=== PATIENT | female | born 1960 | race Caucasian/White ===

== ENCOUNTER 2016-03-09 05:52 | Emergency (ER) | payer BC ==
[2016-03-09 06:07] VITALS: BP 159/92
[2016-03-09] MEDS ORDERED: HYDROcodone/ACETAMIN 5-325 MG* 1 TAB PO ONE (07:11)
--- NOTE | 2016-03-09 07:21 | ED ---
Upper Extremity Pain - HPI Summary HPI Summary: Rt hand dominant pt here w/ fall last night resulting in Rt hand pain and swelling. Pain radiates up arm into neck. Pain is worse w/ movement of fingers and wrist - moving elbow and shoulder well. Thinks she probably hit her head but denies LOC, pain, change in vision, N/V, neck pain, tinnitus, photophobia, phonophobia and no blood thinning medications. Tried ice and a "PM" medication before bed but pain kept her awake so came in to be assessed. Denies numbness, tingling, weakness. - History of Current Complaint Chief Complaint: EDExtremityUpper Stated Complaint: RIGHT HAND PAIN Time Seen by Provider: 03/09/16 07:04 Hx Obtained From: Patient - Allergies/Home Medications Allergies/Adverse Reactions: Allergies Allergy/AdvReac Type Severity Reaction Status Date / Time Niacin [From Niaspan] Allergy Mild UNKNOWN RXN Verified 10/17/15 08:01 Adhesive Tape Allergy Blisters Verified 01/15/16 11:50 a blood pressure medicine Allergy Mild Rash Uncoded 10/17/15 08:01 PMH/Surg Hx/FS Hx/Imm Hx Previously Healthy: Yes Endocrine/Hematology History: Reports: Hx Diabetes, Hx Thyroid Disease - NO THYROID; ENLARGED/GOITER Denies: Hx Systemic Lupus Erythematosus Cardiovascular History: Reports: Hx Congestive Heart Failure, Hx Hypertension Denies: Hx Pacemaker/ICD Respiratory History: Reports: Hx Sleep Apnea, Other Respiratory Problems/ Disorders - CHRONIC PNEUMONIA Denies: Hx Asthma, Hx Chronic Obstructive Pulmonary Disease (COPD) GI History: Reports: Hx Crohn's Disease, Other GI Disorders - Colostomy Denies: Hx Ulcer History: Denies: Hx Dialysis, Hx Renal Disease Musculoskeletal History: Reports: Hx Arthritis - osteoarthritis, Hx Osteoporosis Denies: Hx Rheumatoid Arthritis Sensory History: Reports: Hx Contacts or Glasses Denies: Hx Hearing Aid Opthamlomology History: Reports: Hx Contacts or Glasses Psychiatric History: Reports: Hx Depression, Hx Community Mental Health Tx, Hx Suicide Attempt, Hx of Violent Episodes Against Others Denies: Hx Eating Disorder, Hx Panic Disorder - Cancer History Hx Chemotherapy: No Hx Radiation Therapy: No - Surgical History Surgery Procedure, Year, and Place: 3 - HERNIA. T & A AND PILLARS REMOVED. 2 C SECTIONS. 2 PARTIALS - THYROIDECTOMY. BREAST REDUCTION. COLOSTOMY BAG - JULY 2013. HYSTERECTOMY. Lt ARM -FX - Immunization History Date of Tetanus Vaccine: Up to date Date of Influenza Vaccine: Fall 2013 Infectious Disease History: No Infectious Disease History: Reports: Hx of Known/Suspected MRSA Denies: Hx Hepatitis, Hx Human Immunodeficiency Virus (HIV), Traveled Outside the [place] in Last 30 Days - Family History Known Family History: Positive: None, Cardiac Disease, Hypertension, Diabetes - Social History Occupation: Unemployed Lives: With Family Alcohol Use: Rare Hx Substance Use: No Substance Use Type: Reports: None Hx Tobacco Use: No Smoking Status (MU): Never Smoked Tobacco Review of Systems Eyes: Negative ENT: Negative Cardiovascular: Negative Respiratory: Negative Gastrointestinal: Negative Positive: no symptoms reported Musculoskeletal: Other - see HPI Skin: Negative Neurological: Negative Psychological: Normal All Other Systems Reviewed And Are Negative: Yes Physical Exam Triage Information Reviewed: Yes Vital Signs On Initial Exam: Initial Vitals Temp Pulse Resp BP Pulse Ox 96.6 F 72 16 159/92 95 03/09/16 06:00 03/09/16 06:00 03/09/16 06:00 03/09/16 06:00 03/09/16 06:00 Vital Signs Reviewed: Yes Appearance: Positive: Well-Appearing, Pain Distress, Obese Skin: Positive: Warm, Dry - no erythema, early signs of ecchymosis over Rt thenar eminance (palmar aspect) Head/Face: Positive: Normal Head/Face Inspection - NTTP, no gross deformity Eyes: Positive: Normal, EOMI, Conjunctiva Clear ENT: Positive: Hearing grossly normal, Pharynx normal, TMs normal - no hemotympanum Dental: Negative: Dental Fracture @ Neck: Positive: Supple, Nontender Respiratory/Lung Sounds: Positive: Clear to Auscultation - equal chest rise w/o pain, Breath Sounds Present. Negative: Rales, Rhonchi, Subcutaneous Emphysema, Stridor, Tracheal Deviation, Wheezes Cardiovascular: Positive: Normal, RRR, Pulses are Symmetrical in both Upper and Lower Extremities, S1, S2 Musculoskeletal: Positive: Pain @ - RT MC's and carpals are TTP - thenar eminance and hand in general edematous compared to Lt; limted ROM fingers and wrist d/t pain; FROM elbow and shoulder w/o pain and NTTP; phalanges 2-5 NTTP Neurological: Positive: Normal, Sensory/Motor Intact, Alert, Oriented to Person Place, Time, CN Intact II-III Psychiatric: Positive: Normal - concerned Diagnostics - Vital Signs Vital Signs Temp Pulse Resp BP Pulse Ox 03/09/16 06:00 96.6 F 72 16 159/92 95 - Laboratory Lab Statement: Any lab studies that have been ordered have been reviewed, and results considered in the medical decision making process. Course/Dx - Diagnoses Provider Diagnoses: Sprain of hand, right Discharge - Discharge Plan Condition: Stable Disposition: HOME Prescriptions: HYDROcodone/ACETAMIN 5-325 MG* [[place] 5-325 TAB*] 1 tab PO Q6H PRN #20 tab MDD 4 PRN Reason: Pain Patient Education Materials: Hand Sprain (ED), Splint Care (ED) Referrals: Josué Viera MD [Primary Care Provider] - Katelyn Oconnor MD [Medical Doctor] - Additional Instructions: Keep splint in place until follow-up with PCP/ortho. Call today to schedule an appointment.
--- NOTE | 2016-03-09 07:55 | RAD ---
HISTORY: Fall, right hand pain COMPARISONS: None VIEWS: 4, Frontal, lateral, and oblique views the right hand FINDINGS: BONE DENSITY: Normal. BONES: There is no displaced fracture. JOINTS: There is advanced osteoarthritis of the first CMC joint. There is osteoarthritis of interphalangeal joints. ALIGNMENT: There is no dislocation. SOFT TISSUES: Unremarkable. OTHER FINDINGS: None. IMPRESSION: OSTEOARTHRITIS. NO ACUTE OSSEOUS INJURY. IF SYMPTOMS PERSIST, RECOMMEND REPEAT IMAGING.
== END 2016-03-09 09:00 | disposition home or self-care (01) ==
LOC: ED 05:52
DX: S63.91XA Sprain of unspecified part of right wrist and hand, initial encounter (principal); M79.641 Pain in right hand; X58.XXXA Exposure to other specified factors, initial encounter; Y93.9 Activity, unspecified; Y92.9 Unspecified place or not applicable
CPT/HCPCS: 99282

== ENCOUNTER → 2016-04-23 07:16 | Day surgery (SDC) | payer BC ==
--- NOTE | 2016-04-09 12:30 | HP ---
PREOPERATIVE HISTORY AND PHYSICAL: DATE OF OFFICE VISIT/ENCOUNTER: 04/08/16 DATE OF SURGERY: 04/23/16 [facility] ATTENDING SURGEON: Nancy Aburto MD PROCEDURE: Right thumb carpometacarpal arthroplasty. CHIEF COMPLAINT: Right thumb pain. HISTORY OF PRESENT ILLNESS: This is a 55-year-old woman with various health issues including diabetes, obesity, Crohn disease, and questionable multiple sclerosis, who is having pain in her right thumb. She initially developed pain after an injury on 03/08/16 when she slipped in the bathroom and hit her thumb on the sink. X-rays were negative for fracture, but revealed significant arthritis at the base of her thumb. She had failed conservative treatment including bracing and a cortisone injection. She would like to proceed with surgery at this point in the form of a right thumb carpometacarpal arthroplasty. Her primary care physician is Dr. Viera and we will get clearance from him prior to proceeding with surgery. PAST MEDICAL HISTORY: 1. Diabetes. 2. Hypothyroidism. 3. Hypertension. 4. Obesity. 5. Osteoarthritis. 6. Migraine headaches. 7. Restless leg syndrome. 8. Optic neuritis. 9. Crohn disease/ulcerative colitis. 10. Panic attacks, anxiety, depression. 11. GERD. 12. Questionable multiple sclerosis, for which she is being followed by a neurologist. PAST SURGICAL HISTORY: 1. Hysterectomy. 2. Thyroidectomy. 3. Breast reduction. 4. Colostomy. 5. x2. 6. Hernia repair x3. 7. Tonsillectomy. 8. Tubes in her ears. CURRENT MEDICATIONS: 1. Carbidopa/levodopa 25/250 mg daily. 2. Clonazepam 1 mg one q.a.m., half at noon, and one at bedtime. 3. Fluoxetine HCl 40 mg 1 b.i.d. 4. Gabapentin 400 mg daily. 5. Glipizide 5 mg 1 tab b.i.d. 6. Levothyroxine sodium 200 mcg 1 daily. 7. Lisinopril 20 mg 1 daily. 8. Metformin HCl 500 mg 1 tab b.i.d. 9. Sulfasalazine 500 mg 4 tabs daily. 10. Trazodone HCl 100 mg daily. ALLERGIES: NIASPAN causes hives, and TAPES. FAMILY MEDICAL HISTORY: Brain tumor on paternal side. SOCIAL HISTORY: The patient is not currently employed. She reports being a former smoker. She quit in 2007. Prior to that, she was smoking up to 2 packs per day for 10 years. She denies recreational drug use and alcohol use. REVIEW OF SYSTEMS: General: Negative for fevers, chills, or night sweats. No known anesthesia problems. HEENT: Negative for headache, lightheadedness, or syncopal episodes. Integumentary: Negative for abrasions, lesions, or open wounds. Cardiothoracic: Positive for hypertension. Pulmonary: Positive for shortness of breath with exertion. Negative for chronic cough or COPD. GI: Positive for diarrhea, GERD, Crohn disease, and ulcerative colitis. : Negative for nocturia, urinary frequency, urgency, history of UTIs, or kidney problems. Musculoskeletal: Positive for current complaint and osteoarthritis. Neurological: Negative for paresthesias, numbness, history of seizure, stroke, or epilepsy. Endocrine: Positive for diabetes and hypothyroidism. Hematologic : Negative for easy bruising, anemia, excessive bleeding, or history of DVT. Infectious Disease: Positive for history of MRSA in 2013. Negative for hepatitis C or HIV. PHYSICAL EXAMINATION GENERAL: A well-developed, well-nourished 55-year-old female, in no acute distress. VITAL SIGNS: Height 5 feet 8 inches, weight 293 pounds, pulse rate 88, and blood pressure 134/100. HEENT: Normocephalic, atraumatic. Pupils are equal, round, and reactive to light and accommodation. Extraocular movements are intact. NECK: Supple. No palpable lymph nodes. Throat is clear. PULMONARY: Lungs are clear to auscultation bilaterally. No wheezes, rales, or rhonchi. CARDIOTHORACIC: Regular rate and rhythm. S1, S2. No murmurs, rubs, or gallops. No edema. ABDOMEN: Positive bowel sounds, soft, and nontender. MUSCULOSKELETAL: On exam of her right hand, she has swelling around the base of the thumb. Tenderness to palpation at the CMC joint. Painful range of motion of the thumb. Skin is intact and neurovascular function is intact. She has slight decrease in range of motion of her right thumb and decreased strength secondary to pain. NEUROLOGICAL: Alert and oriented x3. Cranial nerves II through XII are intact. Sensation is intact to light touch. DIAGNOSTIC/IMAGING STUDIES: X-rays of the right thumb show [id number] degenerative arthritis of the CMC joint. IMPRESSION: Right thumb CMC arthritis. PLAN/RECOMMENDATIONS: The patient is scheduled to undergo a right thumb carpometacarpal arthroplasty with Dr. Aburto on 04/23/16. She will will return to the office in 10 to 14 days postop for followup and suture removal. A prescription for Hudson was e-scribed to the patient's pharmacy for postoperative pain management. The patient will receive clearance from her primary care physician, Dr. Viera, prior to proceeding with surgery. JOEL RENEE [id number]/[facility] #: [id number] PHIL
--- NOTE | 2016-04-12 15:52 | HP ---
HISTORY AND PHYSICAL: DATE OF ADMISSION: 04/23/16 [facility] CHIEF COMPLAINT: Right thumb pain. HISTORY OF PRESENT ILLNESS: This 55-year-old white female has been diagnosed with osteoarthritis of her right thumb. She is scheduled with Dr. Nancy Aburto at [facility] on 04/23/16 for a right thumb carpometacarpal arthroscopy. PAST MEDICAL HISTORY: The patient is under the care of Dr. Josué Viera. She has a history of: 1. Morbid obesity. 2. Nge-zkffaza-dmrqsvwdm diabetes mellitus. 3. Hypertension. 4. Hypothyroidism after a total thyroidectomy. 5. Crohn's. 6. Ulcerative colitis. 7. Sleep apnea, uses CPAP. 8. GE reflux. 9. History of right eye optic neuritis. 10. Restless leg syndrome. 11. Chronic anxiety and depression. PAST SURGICAL HISTORY: Includes: 1. T and A. 2. Ear tubes. 3. Tubal ligation. 4. Hysterectomy. 5. Bilateral breast reduction. 6. Total thyroidectomy. 7. Right hemicolectomy with complications of postop wound dehiscence. 8. Five hernia repairs. CURRENT MEDICATIONS: 1. Glipizide 5 mg b.i.d. 2. Metformin 500 mg b.i.d. 3. Sinemet 25/250 q.h.s. 4. Sulfasalazine 500 mg 4 times a day. 5. Levothyroxine 200 mg daily. 6. Lisinopril 20 mg daily. 7. Fluoxetine 40 mg 1 tablet b.i.d. 8. Klonopin 1 mg b.i.d. and half a tablet daily. 9. Tramadol 50 mg b.i.d. 10. Trazodone 100 mg q.h.s. ALLERGIES: NIASPAN has caused rash and hives. GABAPENTIN, facial swelling, dizziness, and syncope. TOPIRAMATE, dizziness and syncope. FAMILY HISTORY: Mother: Atrial fibrillation, pacemaker. Father: Rheumatoid arthritis. Sister: Renal cancer. SOCIAL HISTORY: The patient is . Lives in the [place] area. She has 3 grown children. She quit smoking cigarettes in 2007. Prior to that, 1 to 2 pack a day history for 10 years. Alcohol: None at the present time. REVIEW OF SYSTEMS: She does wear bifocal glasses. She is constipated at the present time and is having some gas cramping. She has a colostomy bag, but still has some rectal bleeding from time to time from her Crohn's ulcerative colitis. Back: Chronic neck and low back pain complaints. She has a history of migraines. Otherwise, review of systems is negative to detailed questioning. She specifically denies dyspnea, cough, chest pain, palpitations, or edema symptoms. PHYSICAL EXAMINATION GENERAL: This 55-year-old morbidly obese white female is alert and cooperative. VITAL SIGNS: Height 5 feet 7 inches, weight 294 pounds. Blood pressure using the large cuff 136/84, pulse 88. HEENT: Eyes: Pupils round, react to light. Ears: Both TMs are dull. No light reflex. No erythema. Mouth: Tongue in the midline. Teeth in very good repair. Pharynx is clear. NECK: No adenopathy or tenderness. Fair range of motion of the cervical spine. She has a slightly widened scar at the base of her anterior neck from previous thyroid surgery, well healed. BACK: Mild kyphosis. She has some tenderness to palpation in the lower lumbar region. No tenderness over the CVA areas. LUNGS: Clear. SKIN: She has multiple pigmented lesions of her upper posterior back, none appear worrisome. HEART: Rhythm is regular. Apical pulse 88 beats per minute. No murmurs. EKG : Normal sinus rhythm within normal limits. See EKG for details. ABDOMEN: Massive central obesity. She has a functioning colostomy with soft brown stool in her ostomy bag and her left mid abdomen. Active bowel sounds. Abdomen is soft, nontender. No obvious masses or organomegaly; however, this exam is quite difficult related to the patient's massive obesity. EXTREMITIES: The patient ambulates independently. No assisting aids. No edema. Skin in good condition. IMPRESSION: The patient is found to be medically stable and cleared for her surgery with Dr. Nancy Aburto on 04/23/16 for right thumb carpometacarpal arthroscopy procedure. PLAN: The patient has pending labs, CBC, P-33, lipids, A1c, and a TSH level. RENETTA ZAMAN NP CC: Josué Viera MD; Dr. Aburto; Preadmission Testing Unit * [id number]/[facility] #: [id number] PHIL
[~2016-04-23 07:16] MED LIST: Acetaminophen TAB* 325 MG PO PRN; Buffered Lidocaine 1% SYRIN* 3 ML/SYR SYRINGE INTRADERM ONE; Bupivacaine 0.5% SDV PF* 30 ML VIAL ONE; Dexamethasone IV* 4 MG/ML 1 ML (4 MG) ONE; DiMENhydriNATE IV* 50 MG/ML VIAL IV PUSH PRN; Famotidine IV* 10 MG/ML 2 ML (20 mg) ONE; HYDROcodone/ACETAMIN 5-325 MG* 1 TAB ONE; HYDROcodone/ACETAMIN 5-325 MG* 1 TAB PO PRN; Ketorolac INJ* 30 MG/ML 1 ML VIAL ONE; Labetalol IV* 5 MG/ML 20 ML VIAL ONE; Lidocaine 2% PF* 5 ML VIAL ONE; Midazolam* 1 MG/ML 2 ML VIAL (2 MG) ONE; Ondansetron INJ* 2 MG/ML VIAL IV PRN; PROCHLORPERAZINE INJ 5 MG/ML 2 ML VIAL IV PRN; Propofol* 10 MG/ML 20 ML BTL IV PUSH ONE; ceFAZolin 1 GM in Dextrose (*) 1 GM/50 ML BAG IVPB ONE; ceFAZolin 2 GM PREMIX(*) 2 GM/50 ML BAG IVPB ONE; fentaNYL* 50 MCG/ML 2 ML VIAL (100 MCG VIAL) ONE
[2016-04-23 11:04] VITALS: BP 141/91
--- NOTE | 2016-04-24 01:33 | OP ---
DATE OF OPERATION: 04/23/16 - [facility] DATE OF : 64 SURGEON: Dr. Aburto. MEETING PLANNER: JOEL Ng ANESTHESIOLOGIST: Dr. Vance ANESTHESIA: General. PRE-OP DIAGNOSIS: Right thumb carpometacarpal arthritis. POST-OP DIAGNOSIS: Right thumb carpometacarpal arthritis. OPERATIVE PROCEDURE: Right thumb carpometacarpal arthroplasty. ESTIMATED BLOOD LOSS: Zero. TOURNIQUET TIME: About 40 minutes. INDICATION FOR PROCEDURE: Kimberly is a 55-year-old woman with pain in her right thumb. X-rays showed severe degenerative arthritis of the CMC joint. She has failed conservative treatment, presents for right thumb CMC arthroplasty. DESCRIPTION OF PROCEDURE: The patient was brought to the operating room, was given a general anesthetic and placed in the supine position on the operating table with a tourniquet around her right forearm. The skin of her right hand and forearm was prepped and draped in the usual sterile fashion. The hand and forearm were exsanguinated and the tourniquet elevated to 250 mmHg. An S- shaped incision was made centered at the CMC joint of the right thumb, dissected bluntly through the subcutaneous tissue. Branches of the radial and sensory nerve were retracted. The APL and EPB tendons were retracted away from the CMC joint capsule and then a distally based U-shaped flap was created at the CMC joint capsule. This was subperiosteally dissected off of the trapezium and then the trapezium was removed in its entirety and sent for pathology. The FCR tendon was in good condition in the floor of the wound. The wound was irrigated and the CMC joint capsule was secured through the FCR tendon with a 4- 0 nylon suture bringing the thumb metacarpal out into abduction. A capsule was then closed with 4-0 nylon suture and the skin edges were reapproximated with 4- 0 nylon suture. The wound was dressed with Xeroform, 4x4, Webril, and a thumb spica splint with the metacarpal abducted. The patient tolerated the procedure well, was brought to the recovery room in good condition. [id number]/[facility] #: [id number] [facility]
== END | disposition home or self-care (01) ==
LOC: OR 07:16
PROVIDERS: ATTEND Orthopaedic Surgery
DX: M18.11 Unilateral primary osteoarthritis of first carpometacarpal joint, right hand (principal); E11.8 Type 2 diabetes mellitus with unspecified complications; Z79.84 Long term (current) use of oral hypoglycemic drugs; Z87.891 Personal history of nicotine dependence; E03.9 Hypothyroidism, unspecified; I10 Essential (primary) hypertension; K50.90 Crohn's disease, unspecified, without complications; Z68.41 Body mass index [BMI] 40.0-44.9, adult; G47.33 Obstructive sleep apnea (adult) (pediatric)
CPT/HCPCS: J0690; J1100; J1885; J2250; J2704; J3010

== ENCOUNTER 2017-03-14 15:34 | Emergency (ER) | payer BC ==
[2017-03-14 18:20] LABS: ABS Basophils 0.1 10^3/ul (0-0.2); ABS Eosinophils 0.2 10^3/ul (0-0.6); ABS Monocytes 0.6 10^3/ul (0-0.8); ABS Neutrophils 6.1 10^3/ul (1.5-7.7); ABS Nucleated RBC 0 10^3/ul; Hematocrit 38 % (35-47); Hemoglobin 12.9 g/dl (12.0-16.0); Lymphocyte % 30.3 % (25-47); Mean Corpuscular HGB Conc 34 g/dl (31-36); Mean Corpuscular Hemoglobin 31 pg (27-31); Mean Corpuscular Volume 92 fL (80-97); Mean Platelet Volume 7 um3 (7.4-10.4); Nucleated Red Blood Cells % 0; Platelet Count 280 10^3/ul (150-450); Red Blood Count 4.09 10^6/ul (4.0-5.4); Red Cell Distribution Width 14 % (10.5-15)
[2017-03-14 18:29] LABS: INR 1.07 (0.77-1.02)
[2017-03-14] MEDS ORDERED: Morphine INJ* 4 MG/ML 1 ML CARPUJECT IV ONE ×2 (18:33→22:00)
[2017-03-14] MEDS ORDERED: NS 0.9% 1000 ML* 1,000 ML IV ONE (18:33)
[2017-03-14] MEDS ORDERED: Ondansetron INJ* 2 MG/ML VIAL IV ONE (18:33)
[2017-03-14 18:35] LABS: EGFR Non-African American 88.7 (>60)
[2017-03-14] MEDS ORDERED: Iodixanol* (CONTRAST) 320 MG/ML 100 ML SDV IV ONE (18:50)
--- NOTE | 2017-03-14 20:13 | RAD ---
CLINICAL HISTORY: Pain and drainage around ostomy site COMPARISON: December 26, 2014 TECHNIQUE: Multiple contiguous axial CT scans were obtained of the abdomen and pelvis after the administration of intravenous contrast. Coronal and sagittal multiplanar reformations are submitted for review. Oral contrast was not administered. Delayed images were obtained through the abdomen and pelvis. FINDINGS: LUNG BASES: The lung bases are clear. LIVER: The liver is diffusely low in attenuation compared to the spleen. The liver measures 20 cm in long axis.. BILE DUCTS: There is no intrahepatic or extrahepatic biliary dilatation. GALLBLADDER: The gallbladder is normal, without pericholecystic inflammatory change. PANCREAS: The pancreas is normal, without mass or ductal dilatation. SPLEEN: Normal in size and appearance. UPPER GI TRACT: Evaluation of the gastrointestinal tract is limited by incomplete gastric distention. The upper GI tract is unremarkable. SMALL BOWEL AND MESENTERY: The small bowel is normal in contour, course, and caliber. There is no obstruction or dilatation. COLON: A colostomy is noted.. ADRENALS: Normal bilaterally. KIDNEYS: The kidneys are normal in shape, size, contour, and axis. There is no hydronephrosis or nephrolithiasis. BLADDER: The bladder is smooth in contour. PELVIC ORGANS: The pelvic organs are not visualized. AORTA: There is calcific atherosclerotic disease of the abdominal aorta and its branches, without aneurysmal dilatation IVC: Unremarkable LYMPH NODES: There is no lymphadenopathy by size criteria. ABDOMINAL WALL: There is a large ventral hernia containing portion of transverse colon. There is a parastomal hernia containing fat. A hernia mesh is noted. BONES AND SOFT TISSUES: Degenerative changes are noted of the spine. OTHER: None IMPRESSION: 1. THE COLOSTOMY IS NOTED. THERE IS NO APPRECIABLE LOCULATED FLUID COLLECTION AT THE SITE OF COLOSTOMY TO SUGGEST ABSCESS. 2. THERE IS A PARASTOMAL HERNIA CONTAINING FAT. THERE IS A VENTRAL HERNIA CONTAINING TRANSVERSE COLON. 3. FATTY INFILTRATION OF LIVER. 4. ATHEROSCLEROSIS
[2017-03-14] MEDS ORDERED: oxyCODONE/Acetamin 5/325 MG* TAB PO ONE (22:04)
--- NOTE | 2017-03-14 22:17 | ED ---
Alex Jenkins Jennifer, scribed for Danny Caballero MD on 03/14/17 at 1836 . Abdominal Pain/Female - HPI Summary HPI Summary: The patient is a 56 year old female who presents with intense abdominal pain that began one month ago. There is redness on the abdomen with raised bumps that pus and bleeds. This began 3.5 years ago due to her Crohns disease. She adds that she has hernias on the right abdominal side and the left side is higher than normal. The patient has an ostomy on her right abdomen that has never healed. The patient additionally complains of bleeding out of her rectum when she uses the restroom that has always happened but has recently gotten much worse. - History of Current Complaint Chief Complaint: Rubén Stated Complaint: PROBLEMS WITH HER STOMA Time Seen by Provider: 03/14/17 18:23 Hx Obtained From: Patient Onset/Duration: Lasting Weeks - one month, Still Present, Worse Since Timing: Constant Severity Initially: Severe Severity Currently: Severe Pain Intensity: 10 Pain Scale Used: 0-10 Numeric Location: Diffuse Aggravating Factor(s): Nothing Alleviating Factor(s): Nothing Associated Signs and Symptoms: Positive: Other: - Bleeding of the rectum, redness around ostomy Allergies/Adverse Reactions: Allergies Allergy/AdvReac Type Severity Reaction Status Date / Time MS Niacin [From Niaspan] Allergy Mild Rash Verified 04/23/16 08:10 Adhesive Tape Allergy Blisters Verified 04/23/16 08:10 PMH/Surg Hx/FS Hx/Imm Hx Endocrine/Hematology History: Reports: Hx Diabetes, Hx Thyroid Disease - NO THYROID; ENLARGED/GOITER Denies: Hx Systemic Lupus Erythematosus Cardiovascular History: Reports: Hx Congestive Heart Failure, Hx Hypertension Denies: Hx Pacemaker/ICD Respiratory History: Reports: Hx Sleep Apnea, Other Respiratory Problems/ Disorders - CHRONIC PNEUMONIA Denies: Hx Asthma, Hx Chronic Obstructive Pulmonary Disease (COPD) GI History: Reports: Hx Crohn's Disease, Hx Gastroesophageal Reflux Disease - ON DAILY MEDS, Other GI Disorders - Colostomy/ CROHN'S Denies: Hx Ulcer History: Denies: Hx Dialysis, Hx Renal Disease Musculoskeletal History: Reports: Hx Arthritis - osteoarthritis, Hx Osteoporosis , Other Musculoskeletal History - SCOLIOSIS Denies: Hx Rheumatoid Arthritis Sensory History: Reports: Hx Contacts or Glasses Denies: Hx Hearing Aid Opthamlomology History: Reports: Hx Contacts or Glasses Neurological History: Reports: Hx Migraine - 3-4 WEEK, Other Neuro Impairments/ Disorders - OPTIC NEURITIS Psychiatric History: Reports: Hx Anxiety - ON DAILY MEDS, Hx Depression, Hx Community Mental Health Tx, Hx Suicide Attempt, Hx of Violent Episodes Against Others Denies: Hx Eating Disorder, Hx Panic Disorder - Cancer History Hx Chemotherapy: No Hx Radiation Therapy: No - Surgical History Surgery Procedure, Year, and Place: 3 - HERNIA. T & A AND PILLARS REMOVED. 2 C SECTIONS. 2 PARTIALS - THYROIDECTOMY. BREAST REDUCTION. LYMPH NODES REMOVED - FROM SCOOTER AXILLAR AREA. COLOSTOMY BAG - JULY 2013. HYSTERECTOMY. Lt ARM -FX. MRSA - ABD AREA - I & D W/WOULD VAC. Hx Anesthesia Reactions: No - Immunization History Date of Tetanus Vaccine: Up to date Date of Influenza Vaccine: Fall 2013 Infectious Disease History: No Infectious Disease History: Reports: Hx of Known/Suspected MRSA Denies: Hx Hepatitis, Hx Human Immunodeficiency Virus (HIV), Traveled Outside the [place] in Last 30 Days - Family History Known Family History: Positive: Cardiac Disease, Hypertension, Diabetes - Social History Alcohol Use: Rare Hx Substance Use: No Substance Use Type: Reports: None Hx Tobacco Use: No Smoking Status (MU): Never Smoked Tobacco Amount Used/How Often: 2PPD 10YRS Have You Smoked in the Last Year: No Review of Systems Positive: Abdominal Pain Genitourinary: Other - Bleeding of the rectum Positive: Other - Redness on abdomen All Other Systems Reviewed And Are Negative: Yes Physical Exam - Summary Physical Exam Summary: General: well-appearing, no pain distress Skin: warm, color reflects adequate perfusion, dry Head: normal Eyes: EOMI, ISAMAR ENT: normal Neck: supple, nontender Respiratory: CTA, breath sounds present Cardiovascular: RRR Abdomen: Tender all around the ostomy, erythematous surrounding the ostomy. Bowel: present Musculoskeletal: normal, strength/ROM intact Neurological: normal, sensory/motor intact, A&O x3 Psychological: affect/mood appropriate Triage Information Reviewed: Yes Vital Signs On Initial Exam: Initial Vitals Temp Pulse Resp BP Pulse Ox 97.5 F 61 18 162/73 98 03/14/17 15:36 03/14/17 15:36 03/14/17 15:36 03/14/17 15:36 03/14/17 15:36 Vital Signs Reviewed: Yes Diagnostics - Vital Signs Vital Signs Temp Pulse Resp BP Pulse Ox 03/14/17 15:36 97.5 F 61 18 162/73 98 - Laboratory Lab Results: Lab Results 03/14/17 03/14/17 Range/Units 18:08 18:08 WBC 10.0 (3.5-10.8) 10^3/ul RBC 4.09 (4.0-5.4) 10^6/ul Hgb 12.9 (12.0-16.0) g/dl Hct 38 (35-47) % MCV 92 (80-97) fL MCH 31 (27-31) pg MCHC 34 (31-36) g/dl RDW 14 (10.5-15) % Plt Count 280 (150-450) 10^3/ul MPV 7 L (7.4-10.4) um3 Neut % (Auto) 61.2 (38-83) % Lymph % (Auto) 30.3 (25-47) % [place] % (Auto) 5.9 (1-9) % Eos % (Auto) 2.0 (0-6) % Baso % (Auto) 0.6 (0-2) % Absolute Neuts (auto) 6.1 (1.5-7.7) 10^3/ul Absolute Lymphs (auto) 3.0 (1.0-4.8) 10^3/ul Absolute Monos (auto) 0.6 (0-0.8) 10^3/ul Absolute Eos (auto) 0.2 (0-0.6) 10^3/ul Absolute Basos (auto) 0.1 (0-0.2) 10^3/ul Absolute Nucleated RBC 0 10^3/ul Nucleated RBC % 0 INR (Anticoag Therapy) 1.07 H (0.77-1.02) APTT 33.0 (26.0-36.3) seconds Result Diagrams: 03/14/17 18:08 03/14/17 18:08 Lab Statement: Any lab studies that have been ordered have been reviewed, and results considered in the medical decision making process. - CT CT Abd/Pel CT Interpretation: Positive (See Comments) - 1. THE COLOSTOMY IS NOTED. THERE IS NO APPRECIABLE LOCULATED FLUID COLLECTION AT THE SITE OF COLOSTOMY TO SUGGEST ABSCESS. 2. THERE IS A PARASTOMAL HERNIA CONTAINING FAT. THERE IS A VENTRAL HERNIA CONTAINING TRANSVERSE COLON. 3. FATTY INFILTRATION OF LIVER. 4. ATHEROS[address]OSIS. Dr. Caballero has reviewed this report. CT Interpretation Completed By: Radiologist Abdominal Pain Fem Course/Dx - Course Course Of Treatment: BP noted and advised to follow up with PCP. Allergies noted. Medications reviewed. DISCUSSED WITH DR SWANSON. DISCUSSED RESULTS WITH PATIENT AND HER . THERE IS SKIN BREAKDOWN/IRRITATION AROUND THE STOMA. PATIENT RECOMMENDED TO FOLLOW UP WITH SPECIALIST CARE TO INCLUDE GI SURGERY THAT PERFORMED THE SURGERY. RETURN TO ED IF WORSE. - Diagnoses Provider Diagnoses: Uncontrolled hypertension, STOMA SKIN IRRITATION, Abdominal pain Discharge - Discharge Plan Condition: Stable Disposition: HOME Prescriptions: oxyCODONE/Acetamin 5/325 MG* [Percocet 5/325 TAB*] 1 tab PO Q4H PRN #30 tab MDD 6 PRN Reason: Pain Patient Education Materials: Abdominal Pain (ED) Referrals: Gabriele Kenyon MD [Primary Care Provider] - Additional Instructions: FOLLOW UP WITH YOUR PRIMARY CARE DOCTOR AND A SURGEON THAT SPECIALIZES IN STOMAS AND ABDOMINAL SURGERY. RETURN TO THE EMERGENCY DEPARTMENT FOR ANY WORSENING OF YOUR CONDITION OR QUESTIONS OR CONCERNS. Your blood pressure was elevated during todays visit; please follow up with your primary care provider within a week for further evaluation. The documentation as recorded by the Alex white Jennifer accurately reflects the service I personally performed and the decisions made by me, Danny Caballero MD.
[2017-03-14 22:52] VITALS: BP 156/70
== END 2017-03-14 22:51 | disposition home or self-care (01) ==
LOC: ED 15:34
DX: R10.9 Unspecified abdominal pain (principal); I10 Essential (primary) hypertension; I50.9 Heart failure, unspecified; K21.9 Gastro-esophageal reflux disease without esophagitis; F41.9 Anxiety disorder, unspecified; M41.9 Scoliosis, unspecified; E11.9 Type 2 diabetes mellitus without complications; K94.09 Other complications of colostomy; Y84.8 Other medical procedures as the cause of abnormal reaction of the patient, or of later complication, without mention of misadventure at the time of the procedure; Y92.9 Unspecified place or not applicable
CPT/HCPCS: 36415; 74177; 80053; 83605; 83690; 85025; 85610; 85730; 86140; 96360; 96374; 96375; 96376; 99284; J2270; J2405; Q9967

== ENCOUNTER 2017-04-16 16:34 | Inpatient (IN) | payer BC ==
[2017-04-16 17:28] LABS: ABS Basophils 0.1 10^3/ul (0-0.2); ABS Eosinophils 0.2 10^3/ul (0-0.6); ABS Lymphocytes 2.9 10^3/ul (1.0-4.8); ABS Monocytes 0.7 10^3/ul (0-0.8); ABS Neutrophils 8.5 10^3/ul (1.5-7.7); ABS Nucleated RBC 0 10^3/ul; Eosinophil % 1.7 % (0-6); Hematocrit 40 % (35-47); Hemoglobin 13.7 g/dl (12.0-16.0); Lymphocyte % 23.1 % (25-47); Mean Corpuscular HGB Conc 34 g/dl (31-36); Mean Corpuscular Hemoglobin 31 pg (27-31); Mean Corpuscular Volume 93 fL (80-97); Mean Platelet Volume 7 um3 (7.4-10.4); Nucleated Red Blood Cells % 0; Platelet Count 279 10^3/ul (150-450); Red Blood Count 4.36 10^6/ul (4.0-5.4); Red Cell Distribution Width 14 % (10.5-15); White Blood Count 12.5 10^3/ul (3.5-10.8)
[2017-04-16 17:44] LABS: EGFR Non-African American 83.1 (>60)
--- OUTSIDE RECORDS SUMMARY | 2017-04-16 18:32 | XMS REPORT ---
:1960 External Reference #:[id number] Author Organization [facility] [email or web address] Address [address] [address] Phone [phone] Care Team Providers Name Role Phone Gabriele Kenyon MD Primary Care Physician Unavailable Payers Type Date Identification Numbers Payment Provider Subscriber Commercial Policy Number: [id number] [employer]ets Adelso Preston PayID: [id number] [address] [address] [place] [address] Medigap Part B Expires: 2015 Policy Number: BS Facets Adelso Preston [id number] PayID: [id number] [address] [address] [place] [address] Advance Directives Type Date Description Status Comment Other Directive 08/26/2016 Health Care Proxy Current and Verified Problems Date Description Provider Status Onset: 10/28/2016 Type 2 diabetes mellitus Gabriele Kenyon, Active Edd,FACP Onset: 12/30/2015 Refractory migraine with aura Adelso Aleman MD Active Onset: 12/30/2015 Optic neuritis Adelso Aleman MD Active Onset: 12/30/2015 Diabetic peripheral neuropathy Adelso Aleman MD Active associated with type 2 diabetes mellitus Onset: 03/10/2016 Localized, primary 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 Onset: 03/17/2016 Headache Adelso Aleman MD Active Onset: 03/17/2016 Vitamin D deficiency Adelso Aleman MD Active Onset: 03/17/2016 Restless legs Adelso Aleman MD Active Onset: 08/19/2016 Crohn's disease of small AND Gabriele Kenyon, Active large intestines Edd,FACP Onset: 08/26/2016 Acquired hypothyroidism Gabriele Kenyon, Active Edd,FACP Onset: 08/26/2016 Chronic pain syndrome Gabriele Kenyon, Active Edd,FACP Onset: 08/26/2016 Moderate recurrent major Gabriele Kenyon, Active depression MGiuseppe,FACP Onset: 08/26/2016 Hypothyroidism Gabriele Kenoyn, Inactive M.Deyanira,FACP Inactive: 08/26/2016 Onset: 12/30/2015 Syncope and collapse Adelso Aleman MD Inactive Inactive: 08/26/2016 Family History Date Family Member(s) Problem(s) Comments : (08/26/2016) (age Father due to Brain Cancer 67 Years) Mother Atrial Fibrillation Siblings 2 First Sister Depression Social History Type Date Description Comments Marital Status 08/26/2016 Lives With Spouse ETOH Use 08/26/2016 Consumes 5 glasses of wine per week Smoking Patient is a former smoker Recreational Drug Use 08/26/2016 Denies Drug Use Exercise Type/Frequency 08/26/2016 Exercises rarely General Hx Text 3 kids Allergies, Adverse Reactions, Alerts Date Description Reaction Status Severity Comments 12/30/2015 Niaspan active hives 12/30/2015 Tape active 10/28/2016 Quetiapine active shakey 12/30/2015 NKDA inactive Medications Medication Date Status Form Strength Qnty SIG Indications Ordering Provider Lovastatin 01/27 Active Tablets 10mg 90tab take 1 s tablet D. Rugby, at M.D.,FACP bedtime Nystatin 01/27 Active Powder [id number] 60gm topical t/GM twice a D. Rugby, day as M.D.,FACP needed Tramadol HCL 11/09 Active Tablets 50mg 90tab four s times a D. Rugby, day as M.D.,FACP needed Pen [place] 16" 10/28 Active Misc 31G X 8 100un use one E11.42 mm its time a D. Rugby, daily M.D.,FACP with Victoza Victoza 10/28 Active Solution 18mg/3ML 6unit inject E11.42 Pen-Inject s 1.2 mg Deyanira Kenyon, daily M.D.,FACP Gabapentin 08/26 Active Tablets 800mg 90tab 1 by s mouth Deyanira Kenyon, every M.D.,FACP night at bedtime Clonazepam Active Tablets 1mg 75tab 1 every in the Joel. Kostas, morning, M.DShayy,FACP 1/2 nooon, 1@hs Gabapentin Active Capsules 400mg 90cap 1 cap by mouth Deyanira Kenyon, three M.D.,FACP times a day Tylenol Active Capsules 325mg 2 tablets every 4 hours as needed for pain Trazodone HCL Active Tablets 100mg 30tab 1 at at bedtime Deyanira Kenyon M.D.,FACP Fluoxetine HCL Active Capsules 40mg 30cap 1 tab every Deyanira Kenyon, day M.D.,FACP Lisinopril Active Tablets 20mg 30tab 1 every day Deyanira Kenyon M.D.,FACP Sulfasalazine Active Tablets 500mg 120ta 4 every day Edd Ely Levothyroxine Active Tablets 200mcg 30tab 1 every day Edd Ely Metformin HCL Active Tablets 500mg 60tab 1 twice a day Deyanira Kenyon M.D.,FACP Azithromycin 02/08 Hx Tablets 250mg 6tabs 2 tab J06.9 today Pachikara, and then M.DShayy 1tab daily Prednisone 02/08 Hx Tablets 20mg 10tab 2 tab by J06.9 s mouth 5 Pachikara, days M.DShayy Nexium 01/[address] 20mg 90cap 1 by K21.9 s mouth Deyanira Kenyon, every M.D.,FACP day (not taking) Glipizide 10/28 Hx Tablets 5mg 90tab 1/2 tab s twice a Pachikara, - day M.D. 01/27 Omeprazole 10/[address] 20mg 90cap 1 by K21.9 Gabriele s mouth Deyanira Kenyon, - every M.D.,[facility] Percocet 04/26 Hx Tablets 5-325mg 20tab 1-2 by Nancy s mouth Criselda, - every M.D. 05/18 4-6 hour as needed pain Hydrocodone-Acetam 04/08 Hx Tablets 5-325mg 40tab 1-2 tabs Nancy s by mouth Criselda, - every 4- M.D. 04/17 6 hours as needed pain Glipizide Hx Tablets 5mg 60tab 1 twice s a day Deyanira Kenyon, - M.D.,[facility] 10/28 Hydrocodone-Acetam Hx Tablets 5-325mg Unknown ino - 04/17 Carbidopa-Levodopa Hx Tablets 25-250mg Unknown - 05/09 Tramadol HCL Hx Tablets 50mg Cardina, / Jacob Moses MD 05/14 Tramadol HCL Hx Tablets 50mg 60tab 1 by Manuel / s mouth Pachikara, - every 6 M.D. 09/08 hours needed Clobetasol Hx Cream 0.05% Unknown - 09/08 Ciprodex Hx Suspension 0.3-0.1% - 08/26 Baclofen Hx Tablets 10mg Unknown - 08/26 Methylprednisolone Hx TBPK 4mg Unknown - 08/26 Topiramate Hx Tablets 25mg Unknown 08/26 Medications Administered in Office Medication Date Status Form Strength Qnty SIG Indications Ordering Provider Depomedrol Administered Injection Tabitha 40MG 017 CARROL Bragg Depomedrol Administered Injection Nancy 40MG 017 Edd Aburto Immunizations CPT Code Status Date Vaccine Lot # [id number] Given 10/28/2016 Influenza Virus Vaccine, Quadrivalent, Split, [id number] Preservative Free Vital Signs Date Vital Result Comment 03/28/2017 Height 68 inches 5'8" Weight 265.00 lb Heart Rate 66 /min BP Systolic Sitting 148 mmHg BP Diastolic Sitting 100 mmHg Respiratory Rate 18 /min Body Temperature 98.2 F BMI (Body Mass Index) 40.3 kg/m2 02/08/2017 Weight 268.12 lb Heart Rate 63 /min BP Systolic Sitting 132 mmHg BP Diastolic Sitting 80 mmHg Body Temperature 97.1 F O2 % BldC Oximetry 95 % 01/27/2017 Weight 271.00 lb Heart Rate 61 /min BP Systolic Sitting 158 mmHg BP Diastolic Sitting 90 mmHg Body Temperature 97.8 F O2 % BldC Oximetry 97 % 10/28/2016 Weight 280.00 lb Heart Rate 57 /min BP Systolic Sitting 138 mmHg BP Diastolic Sitting 80 mmHg Body Temperature 97.8 F O2 % BldC Oximetry 97 % 09/08/2016 Height 67.5 inches 5'7.50" Weight 284.00 lb BP Systolic 134 mmHg BP Diastolic 100 mmHg Respiratory Rate 20 /min Body Temperature 98.0 F Pain Level 8 BMI (Body Mass Index) 43.8 kg/m2 08/26/2016 Height 67.5 inches 5'7.50" Weight 284.00 lb Heart Rate 79 /min BP Systolic 148 mmHg BP Diastolic 82 mmHg O2 % BldC Oximetry 97 % BMI (Body Mass Index) 43.8 kg/m2 07/15/2016 Height 68 inches 5'8" Weight 297.00 lb Heart Rate 78 /min Respiratory Rate 16 /min Body Temperature 98.4 F BMI (Body Mass Index) 45.2 kg/m2 06/03/2016 Height 68 inches 5'8" Weight 297.00 lb BP Systolic 119 mmHg BP Diastolic 68 mmHg Respiratory Rate 20 /min Body Temperature 98.3 F Pain Level 3 BMI (Body Mass Index) 45.2 kg/m2 05/18/2016 Height 68 inches 5'8" Weight 297.00 lb Heart Rate 78 /min BP Systolic Sitting 132 mmHg BP Diastolic Sitting 88 mmHg BMI (Body Mass Index) 45.2 kg/m2 05/06/2016 Height 68 inches 5'8" Weight 293.00 lb Respiratory Rate 24 /min Body Temperature 98.5 F Pain Level 5 BMI (Body Mass Index) 44.5 kg/m2 04/08/2016 Height 68 inches 5'8" Weight 293.00 lb Heart Rate 88 /min BP Systolic 134 mmHg BP Diastolic 100 mmHg Respiratory Rate 20 /min Pain Level 8 BMI (Body Mass Index) 44.5 kg/m2 03/17/2016 Height 68 inches 5'8" Weight 293.00 lb Heart Rate 80 /min BP Systolic Sitting 122 mmHg BP Diastolic Sitting 88 mmHg BMI (Body Mass Index) 44.5 kg/m2 03/11/2016 Height 68 inches 5'8" Weight 294.00 lb Heart Rate 76 /min BP Systolic 172 mmHg BP Diastolic 92 mmHg Respiratory Rate 19 /min Pain Level 9 BMI (Body Mass Index) 44.7 kg/m2 03/10/2016 Height 68 inches 5'8" Weight 294.00 lb Heart Rate 65 /min BP Systolic 153 mmHg BP Diastolic 84 mmHg Pain Level 10 BMI (Body Mass Index) 44.7 kg/m2 12/30/2015 Height 67.5 inches 5'7.50" Weight 282.38 lb Heart Rate 64 /min BP Systolic Sitting 140 mmHg BP Diastolic Sitting 98 mmHg BMI (Body Mass Index) 43.6 kg/m2 Results Test Date Test Result H/L Range Note Inr/Protime 03/14/2017 Inr 1.07 High 0.77-1.02 Laboratory test 03/14/2017 Partial Thrombo 33.0 seconds 26.0-36.3 finding Time PTT Comp Metabolic Panel 03/14/2017 Sodium 136 mmol/L 133-145 Potassium 4.0 mmol/L 3.5-5.0 Chloride 100 mmol/L Low 101-111 Co2 Carbon Dioxide 29 mmol/L 22-32 Anion Gap 7 mmol/L 2-11 Glucose 92 mg/dL 70-100 Blood Urea Nitrogen 7 mg/dL 6-24 Creatinine 0.69 mg/dL 0.51-0.95 BUN/Creatinine Ratio 10.1 8-20 Calcium 9.2 mg/dL 8.6-10.3 Total Protein 6.8 g/dL 6.4-8.9 Albumin 3.7 g/dL 3.2-5.2 Globulin 3.1 g/dL 2-4 Albumin/Globulin Ratio 1.2 1-3 Total Bilirubin 0.40 mg/dL 0.2-1.0 Alkaline Phosphatase 49 U/L 34-104 Alt 24 U/L 7-52 Ast 15 U/L 13-39 Egfr Non- 88.7 >60 Egfr 114.0 >60 1 Laboratory test finding 03/14/2017 Lipase 80 U/L 11.0-82.0 C Reactive Protein 13.45 mg/L High < 5.00 2 CBC Auto Diff 03/14/2017 White Blood Count 10.0 10^3/uL 3.5-10.8 Red Blood Count 4.09 10^6/uL 4.0-5.4 Hemoglobin 12.9 g/dL 12.0-16.0 Hematocrit 38 % 35-47 Mean Corpuscular Volume 92 fL 80-97 Mean Corpuscular Hemoglobin 31 pg 27-31 Mean Corpuscular HGB Conc 34 g/dL 31-36 Red Cell Distribution Width 14 % 10.5-15 Platelet Count 280 10^3/uL 150-450 Mean Platelet Volume 7 um3 Low 7.4-10.4 Abs Neutrophils 6.1 10^3/uL 1.5-7.7 Abs Lymphocytes 3.0 10^3/uL 1.0-4.8 Abs Monocytes 0.6 10^3/uL 0-0.8 Abs Eosinophils 0.2 10^3/uL 0-0.6 Abs Basophils 0.1 10^3/uL 0-0.2 Abs Nucleated RBC 0 10^3/uL Granulocyte % 61.2 % 38-83 Lymphocyte % 30.3 % 25-47 Monocyte % 5.9 % 1-9 Eosinophil % 2.0 % 0-6 Basophil % 0.6 % 0-2 Nucleated Red Blood Cells % 0 Laboratory test finding 03/14/2017 Lactic Acid 1.3 mmol/L 0.5-2.0 3 Lipid Profile (Trig/Chol/HDL) 01/21/2017 Triglycerides 234 mg/dL 4 Cholesterol 198 mg/dL 5 HDL Cholesterol 34.6 mg/dL 6 LDL Cholesterol 117 mg/dL 7 Laboratory test finding 01/21/2017 Hemoglobin A1c (Glyco 6.0 % High 4.0- 5.6 8 HGB) Urine Microalbumin 01/21/2017 Ur Microalbumin (mg/L) < 15.0 Random mg/L Urine Creatinine 32.66 mg/dL Urine Microalbumin/Creatinine TNP ug/mg <31 9 Comp Metabolic Panel 01/21/2017 Sodium 135 mmol/L 133-145 Potassium 4.0 mmol/L 3.5-5.0 Chloride 100 mmol/L Low 101-111 Co2 Carbon Dioxide 27 mmol/L 22-32 Anion Gap 8 mmol/L 2-11 Glucose 124 mg/dL High 70-100 Blood Urea Nitrogen 11 mg/dL 6-24 Creatinine 0.67 mg/dL 0.51-0.95 BUN/Creatinine Ratio 16.4 8-20 Calcium 9.1 mg/dL 8.6-10.3 Total Protein 6.7 g/dL 6.4-8.9 Albumin 4.0 g/dL 3.2-5.2 Globulin 2.7 g/dL 2-4 Albumin/Globulin Ratio 1.5 1-3 Total Bilirubin 0.30 mg/dL 0.2-1.0 Alkaline Phosphatase 67 U/L 34-104 Alt 16 U/L 7-52 Ast 12 U/L Low 13-39 Egfr Non- 91.7 >60 Egfr 118.0 >60 10 Laboratory test 01/21/2017 Hepatitis C Rna Undetected IU/mL Undetected 11 finding Quant Laboratory test 10/26/2016 TSH (Thyroid Stim 0.95 mcIU/mL 0.34-5.60 finding Horm) Free T4 (Free Thyroxine) 1.17 ng/dL High 0.61-1.12 CBC Auto Diff 09/03/2016 White Blood Count 6.7 10^3/uL 3.5-10.8 Red Blood Count 4.14 10^6/uL 4.0-5.4 Hemoglobin 13.2 g/dL 12.0-16.0 Hematocrit 39 % 35-47 Mean Corpuscular Volume 94 fL 80-97 Mean Corpuscular Hemoglobin 32 pg High 27-31 Mean Corpuscular HGB Conc 34 g/dL 31-36 Red Cell Distribution Width 14 % 10.5-15 Platelet Count 244 10^3/uL 150-450 Mean Platelet Volume 7 um3 Low 7.4-10.4 Abs Neutrophils 4.1 10^3/uL 1.5-7.7 Abs Lymphocytes 1.9 10^3/uL 1.0-4.8 Abs Monocytes 0.5 10^3/uL 0-0.8 Abs Eosinophils 0.2 10^3/uL 0-0.6 Abs Basophils 0.1 10^3/uL 0-0.2 Abs Nucleated RBC 0.01 10^3/uL Granulocyte % 61.1 % 38-83 Lymphocyte % 28.6 % 25-47 Monocyte % 6.9 % 1-9 Eosinophil % 2.4 % 0-6 Basophil % 1.0 % 0-2 Nucleated Red Blood Cells % 0.1 Comp Metabolic Panel 09/03/2016 Sodium 139 mmol/L 133-145 Potassium 4.3 mmol/L 3.5-5.0 Chloride 104 mmol/L 101-111 Co2 Carbon Dioxide 27 mmol/L 22-32 Anion Gap 8 mmol/L 2-11 Glucose 163 mg/dL High 70-100 Blood Urea Nitrogen 8 mg/dL 6-24 Creatinine 0.69 mg/dL 0.51-0.95 BUN/Creatinine Ratio 11.6 8-20 Calcium 8.5 mg/dL Low 8.6-10.3 Total Protein 6.6 g/dL 6.4-8.9 Albumin 3.8 g/dL 3.2-5.2 Globulin 2.8 g/dL 2-4 Albumin/Globulin Ratio 1.4 1-3 Total Bilirubin 0.30 mg/dL 0.2-1.0 Alkaline Phosphatase 56 U/L 34-104 Alt 19 U/L 7-52 Ast 15 U/L 13-39 Egfr Non- 88.7 >60 Egfr 114.0 >60 12 Laboratory test finding 09/03/2016 C Reactive Protein 17.16 mg/L High &lt ; 5.00 13 Hemoglobin A1c (Glyco HGB) 6.4 % High Less than 6.0 14 Laboratory test 04/23/2016 Surgical Pathology SEE RESULT BELOW 15 finding Laboratory test 04/23/2016 Point of Care 133 mg/dL High 74-106 16 finding Glucose Laboratory test 12/30/2015 Vitamin B12 433 pg/mL 180-914 17 finding Folic Acid (Folate) > 20.00 ng/mL >3.99 Vitamin D 1,25 And Vitamin 12/30/2015 Vitamin D Total 25(Oh) 27.4 ng/mL Low 30-50 D,2 Vitamin D, 1,25 Dihydroxy 47 pg/mL 18-78 18 1 Because ethnic data is not always readily available, this report includes an eGFR for both -Americans and non- Americans. The National Kidney Disease Education Program (NKDEP) does not endorse the use of the MDRD equation for patients that are not between the ages of 18 and 70, are , have extremes of body size, muscle mass, or nutritional status, or are non- or non-. According to the National Kidney Foundation, irrespective of diagnosis, the stage of the disease is based on the level of kidney function: Stage Description GFR(mL/min/1.73 m(2)) 1 Kidney damage with normal or decreased GFR 90 2 Kidney damage with mild decrease in GFR 60-89 3 Moderate decrease in GFR 30-59 4 Severe decrease in GFR 15-29 5 Kidney failure <15 (or dialysis) 2 Acute inflammation: >10.00 3 [facility] Severe Sepsis and Septic Shock Management Bundle Measure requires all lactic acids initially measuring >2.0 mmol/L be repeated. 4 Desirable: <150 Borderline High: 150-199 High: 200-499 Very High: >500 5 Desirable: <200 Borderline High: 200-239 High: >239 6 Low: <40 Desirable: 40-60 High: >60 7 Desirable: <100 Near Optimal: 100-129 Borderline High: 130-159 High: 160-189 Very High: >189 8 Therapeutic target for the treatment of diabetes mellitus patients is <7% HBA1C, and in selective patients <6.0%. Please refer to [place] Diabetes Association diabetic care guidelines for further information. 9 Unable to calculate due to low microalbumin 10 Because ethnic data is not always readily available, this report includes an eGFR for both -Americans and non- Americans. The National Kidney Disease Education Program (NKDEP) does not endorse the use of the MDRD equation for patients that are not between the ages of 18 and 70, are , have extremes of body size, muscle mass, or nutritional status, or are non- or non-. According to the National Kidney Foundation, irrespective of diagnosis, the stage of the disease is based on the level of kidney function: Stage Description GFR(mL/min/1.73 m(2)) 1 Kidney damage with normal or decreased GFR 90 2 Kidney damage with mild decrease in GFR 60-89 3 Moderate decrease in GFR 30-59 4 Severe decrease in GFR 15-29 5 Kidney failure <15 (or dialysis) 11 Result in log IU/mL is Undetected. ADDITIONAL INFORMATION The quantification range of this assay is 15 to 100,000,000 IU/mL (1.18 log to 8.00 log IU/mL). Testing was performed using the pinky HCV test ([facility] [employer] with the pinky Whodini0 System. Test Performed by: [facility] - [facility], [place] [address] [place] [address] 12 Because ethnic data is not always readily available, this report includes an eGFR for both -Americans and non- Americans. The National Kidney Disease Education Program (NKDEP) does not endorse the use of the MDRD equation for patients that are not between the ages of 18 and 70, are , have extremes of body size, muscle mass, or nutritional status, or are non- or non-. According to the National Kidney Foundation, irrespective of diagnosis, the stage of the disease is based on the level of kidney function: Stage Description GFR(mL/min/1.73 m(2)) 1 Kidney damage with normal or decreased GFR 90 2 Kidney damage with mild decrease in GFR 60-89 3 Moderate decrease in GFR 30-59 4 Severe decrease in GFR 15-29 5 Kidney failure <15 (or dialysis) 13 Acute inflammation: >10.00 14 Therapeutic target for the treatment of diabetes Mellitus patients is <7% HBA1C, and in selective patients <6.0%.Please refer to [place] [employer] Association Diabetic care guidelines for further information. 15 SEE RESULT BELOW Name: KIMBERLY PRESTON : [address]: Nancy Aburto MD Acct: [id number] Unit: [id number] AGE: 55 Location: OR Re04/23/16 SEX: F Status: DEP SD SPEC: [id number] SUAD: 04/23/16 [facility] DR: Nancy Aburto MD REQ: [id number] RECD: 04/23/16 STATUS: SOUT _ ORDERED: Decal, LEVEL III FINAL DIAGNOSIS Bone, right wrist, trapezium, resection: -- Severe degenerative osteoarthritic changes. PRE-OPERATIVE DIAGNOSIS Osteoarthritis of first carpalmetocarpal GROSS DESCRIPTION The specimen is received in formalin labeled, Right Trapezium, and consists of a 4.2 x 3.3 x 0.8 cm aggregate of stover-pink irregular bone fragments. Senior Network Security Engineer sections, one cassette following decalcification. MICROSCOPIC DESCRIPTION Signed (signature on file) Elio Marcos MD [id number] END OF REPORT * ML=Testing performed at Main Lab DEPARTMENT OF PATHOLOGY, [address] [place] [address] Elio Marcos M.D. Director [facility] # [id number] 16 Lean Manager: [id number] JERSON CAMPOS 17 Normal Range 180 to 914 Indeterminate Range 145 to 180 Deficient Range <145 18 ADDITIONAL INFORMATION This test was developed and its performance characteristics determined by [facility] in a manner consistent with CLIA requirements. This test has not been cleared or approved by the U.S. Food and Drug Administration. Test Performed by: [facility] - [address] [address] [place] Passer: Danny Nieto II, M.D., Ph.D. Procedures Date CPT Code Description Status 01/27/2017 Colonoscopy Completed 09/08/201644206 Inject Tendon Sheath Or Ligament Aponeurosis Eg Plantar Completed Fascia 08/13/2016 Diabetic Retinal Eye Exam Completed 04/23/2016 10539 Arthroplasty Interposition Intercarpal Or Completed Carpometacarpal JTS 04/23/2016 88447 Arthroplasty Interposition Intercarpal Or Completed Carpometacarpal JTS 03/11/201610308 Inject/Drain Joint/Bursa Small Completed 10/17/2015 53671 EEG Recording Awake & Drowsy Completed 08/13/2015 Mammogram Completed 04/03/2013 90566 Visual Evoked Potential Test BUTTER MELTER Completed Encounters Type Date Location Provider CPT E/M Dx Office Visit 02/08/2017 3:40p [facility] Internal Manuel Ely, [address]1460 J06.9 Medicine - [place] T[place] P[place] Office Visit 01/27/2017 10:00a [facility] Internal Gabriele Kenyon, 07174 E11.42 Medicine - [place],FACP F33.1 L30.4 E66.01 K21.0 Office Visit 10/28/2016 9:50a [facility] Internal Gabriele Kenyon, 83449 E11.42 Medicine - [place] T[place] P[place],FACP F33.1 E03.9 K21.9 Z23 Office Visit 09/08/2016 1:00p [facility]opedic Services Tabitha Bragg, 03944 M65.352 Of Basilia DUNHAM-C Office Visit 08/26/2016 1:40p [facility] Internal Medicine Gabriele Kenyon, 91837 E11.42 - [place],FACP G43.119 F33.1 K51.90 Office Visit 05/18/2016 9:30a [facility] [address] H46.9 R51 G25.81 Z86.69 Office Visit 04/08/2016 10:00a [facility] Services Of Nancy Aburto, 45634 M18.11 C.Prem Puga Office Visit 03/17/2016 9:45a [facility] [address] E11.42 H46.9 R51 E55.9 G25.81 Office Visit 03/11/2016 2:00p Orthopedic Services Nancy Aburto, 80518 M18.11 Of Allan.Prem Puga Office Visit 03/10/2016 8:30a Orthopedic Services Katelyn Oconnor M.D. 47708 M79.641 Of C.M.AShayy M25.531 M19.041 W19.xxxA Office Visit 12/30/2015 8:30a [facility] [address] R55 G43.119 H46.9 E11.42 Office Visit 10/18/2015 10:57a [facility], [address] R55 Assoc,pc [facility] Hospitalists M54.41 M54.2 M54.42 Office Visit 10/17/2015 10:56a [facility], [address] R55 Assoc,pc [place] Hospitalists M54.41 M54.42 M54.2 Plan of Care Future Appointment(s):04/27/2017 11:20 am - Gabriele Kenyon M.D.,FACP at [facility] Internal Medicine - [address]03/28/2017 - Henrique Marcum MDK51.811 Other ulcerative colitis with rectal epcfhcmgX41.2 Incisional hernia without obstruction or gangreneFollow up:with your surgeon in [place] [address].01 Morbid ( severe) obesity due to excess caloriesComments:[facility]er to [facility]erral:Germania Alston CNM,
[2017-04-16 21:30] LABS: Urine Appearance Clear; Urine Blood Negative (Negative); Urine Color Yellow; Urine Ketones Negative (Negative); Urine Protein Negative (Negative); Urine Specific Gravity 1.006 (1.010-1.030); Urine Urobilinogen Negative (Negative)
[2017-04-16] MEDS ORDERED: CMCS:Lovastatin (NF) 10 MG TAB PO ONE (23:00)
[2017-04-16] MEDS ORDERED: sulfaSALAzine TAB* 500 MG PO ONE (23:00)
[2017-04-16] MEDS ORDERED: clonazePAM TAB(*) 1 MG PO ONE (23:00)
[2017-04-16] MEDS ORDERED: traZODone TAB* 100 MG PO ONE (23:00)
[2017-04-16] MEDS ORDERED: Gabapentin CAP(*) 400 MG PO ONE (23:00)
[2017-04-16] MEDS ORDERED: metFORMIN* 500 MG TAB PO ONE (23:00)
[2017-04-17] MEDS ORDERED: oxyCODONE/Acetamin 5/325 MG* TAB PO ONE ×2 (03:23→19:04)
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
[2017-04-17] MEDS ORDERED: clonazePAM TAB(*) 0.5 MG PO ONE (12:03)
[2017-04-17] MEDS ORDERED: Lisinopril TAB* 10 MG PO ONE (12:03)
[2017-04-17] MEDS ORDERED: FLUoxetine CAP* 20 MG PO ONE (12:03)
[2017-04-17] MEDS ORDERED: Gabapentin CAP(*) 400 MG PO ONE (12:03)
[2017-04-17] MEDS ORDERED: Levothyroxine TAB* 100 MCG TAB PO ONE (12:05)
[2017-04-17] MEDS ORDERED: Pantoprazole TAB (NF) 20 MG TAB PO ONE (12:06)
--- NOTE | 2017-04-17 12:23 | PN ---
ED Flex Patient Progress Note Subjective: This is a 56 year-old F who is pending transfer to another psychiatric facility secondary to SI/HI . Pt reports the skin around her stoma is sore however she is cleaning it as I walk in and agrees that letting it stay open to air for a bit will help. She has powder and cream with her to aid in soothing the skin. Skin does not appear infected but rather irritated from adhesive. Stoma itself appears healthy. Pt reports she does not want to go anywhere but here as she's had bad experiences in other places in the past. Reports she has a lot on her plate w/ caring for many family members including grandchildren. Admits to eating minimal amount of eggs for breakfast and that was all - requesting a shake of some sort. At one point reports she doesn't eat by choice and is upset that her providers continue to tell her she's morbidly obese. Also requests meds today "I need my meds". We went through her list and discussed which ones would be appropriate at this time and pt agrees (see med orders for details). She agrees to glucose checks and will take metformin as needed. Also reports she uses another injectable med that is not insulin (victoza?) - not on med list but will inquire. Objective: Vitals: Most recent vital signs documented below. General NAD, Alert and oriented x3. Heart:S1/S2, RRR Lungs: CTA, BREATHING EASILY INTEG: superficial erythema in areas where adhesive has been applied - skin is dry and without pustules, vesicles - early signs of superficial breakdown PSYCH: hyperverbal, perseverates on stoma concerns, tearful at times, anxious ( NOTE: was previously witnessed to be sleeping comfortably with CPAP in place earlier this morning) Assessment: 1) SI/HI 2) DM 3) Stoma 2ndry to IBD 4) IBD (crohn's vs. UC) 5) Chronic pain? 6) Hyperlipidemia Plan: 1) Pending psychiatric transfer. Will follow up daily _while in ED____. Routine meds ordered. Pt also requesting to speak with spiritual counselor - Jon RN's, aware. 2) Will check blood glucose and order metformin PRN - will check with med rec tech re: pt's request for ?victoza? 3) Pt is cleaning her own stoma which other than peripheral skin irritation, appears healthy. Will support her w/ supplies as needed and adjust care as needed during stay 4) Pt received sulfasalazine last night. Will order again today with QID regimen as in med list 5) Some of meds ordered on list however a note in chart reveals she was d/c'd from opiates recently - will use judgment with continued rx as needed only 6) Statin provided last night - will continue nightly while here Vital Signs Temp Pulse Resp BP Pulse Ox 97.2 F 65 18 118/90 100 04/17/17 09:45 04/17/17 09:45 04/17/17 09:45 04/17/17 09:45 04/17/17 09:45 Lab Results - Entire Visit 04/16/17 04/16/17 04/16/17 20:40 17:20 17:20 WBC 12.5 H RBC 4.36 Hgb 13.7 Hct 40 MCV 93 MCH 31 MCHC 34 RDW 14 Plt Count 279 MPV 7 L Neut % (Auto) 68.2 Lymph % (Auto) 23.1 L [place] % (Auto) 5.9 Eos % (Auto) 1.7 Baso % (Auto) 1.1 Absolute Neuts (auto) 8.5 H Absolute Lymphs (auto) 2.9 Absolute Monos (auto) 0.7 Absolute Eos (auto) 0.2 Absolute Basos (auto) 0.1 Absolute Nucleated RBC 0 Nucleated RBC % 0 Sodium 136 Potassium 3.6 Chloride 100 L Carbon Dioxide 28 Anion Gap 8 BUN 8 Creatinine 0.73 Est GFR ( Amer) 106.8 Est GFR (Non-Af Amer) 83.1 BUN/Creatinine Ratio 11.0 Glucose 99 Calcium 9.5 Total Bilirubin 0.40 AST 15 ALT 18 Alkaline Phosphatase 58 Total Protein 7.6 Albumin 4.3 Globulin 3.3 Albumin/Globulin Ratio 1.3 TSH 0.49 Urine Color Yellow Urine Appearance Clear Urine pH 6.0 Ur Specific Comfort 1.006 L Urine Protein Negative Urine Ketones Negative Urine Blood Negative Urine Nitrate Negative Urine Bilirubin Negative Urine Urobilinogen Negative Ur Leukocyte Esterase 2+ A Urine WBC (Auto) 1+(6-10/hpf) A Urine RBC (Auto) Absent Ur Squamous Epith Cells Present A Urine Bacteria Absent Urine Glucose Negative Salicylates < 2.50 Acetaminophen < 15 Serum Alcohol < 10
[2017-04-17] MEDS ORDERED: Ondansetron ODT TAB* 4 MG PO ONE (15:56)
[2017-04-17] MEDS: sulfaSALAzine TAB* 500 MG PO SCH (16:51)
[2017-04-17] MEDS ORDERED: Pantoprazole TAB (NF) 40 MG TAB PO ONE (17:36)
--- NOTE | 2017-04-17 18:25 | ED ---
Kelly Jenkins Gabriel, scribed for Cullen Torres MD on 04/17/17 at 1817 . Progress - Progress Note Progress Note: This patient was signed out from Dr. Robin, pending disposition, awaiting transfer to a MHE facility. - Consult/PCP Time Called: 18:30 Course/Dx - Course Course Of Treatment: This patient was signed out from Dr. Robin, pending disposition, awaiting transfer to a E facility. - Diagnoses Provider Diagnoses: Suicidal ideation, Homicidal ideation The documentation as recorded by the Kelly white Gabriel accurately reflects the service I personally performed and the decisions made by Brian parikh Walter, MD.
--- NOTE | 2017-04-17 20:39 | PN ---
Progress Note - Progress Note Date of Service: 04/17/17 Note: Saw patient this morning in her room in the ED. Patient was calm, mostly pleasent and cooperative. Says she doesn't want to go to any other hospital because of bad experience. Somewhat pressure but logical and goal directed without any evidence of disorganized thoughts or behaviors. Still sad and suicidal. Upset with her who is never home she says and her mother is aggravating her all the time. Plan is to try to find her a bed somewhere else or bring her to [facility] here when bed available.
[2017-04-18] MEDS ORDERED: clonazePAM TAB(*) 1 MG PO ONE ×2 (02:57→10:48)
[2017-04-18] MEDS ORDERED: traZODone TAB* 100 MG PO ONE (02:57)
[2017-04-18] MEDS ORDERED: traZODone TAB* 50 MG TAB ONE ×2 (03:02→03:03)
[2017-04-18] MEDS ORDERED: clonazePAM TAB(*) 1 MG ONE (03:02)
--- NOTE | 2017-04-18 10:09 | ED ---
Reyes Jenkins Angela, scribed for Cullen Torres MD on 04/18/17 at 0942 . Progress - Progress Note Progress Note: This patient was signed out from Dr. Robin, pending disposition, awaiting transfer to a E facility. Pt was evaluated by the mental health synchro assembler and Dr. Dickey. Dr. Dickey recommends admission to [facility]. Pt will be admitted to [facility], in stable condition, with a diagnosis of unspecified depressive disorder. Condition: Stable Disposition: Admit to [facility] Course/Dx - Diagnoses Provider Diagnoses: Depressive disorder The documentation as recorded by the Reyes white Angela accurately reflects the service I personally performed and the decisions made by Brian parikh Walter, MD.
[2017-04-18] MEDS ORDERED: Gabapentin CAP(*) 400 MG PO ONE (10:47)
[2017-04-18] MEDS ORDERED: metFORMIN* 500 MG TAB PO ONE (10:47)
[2017-04-18] MEDS ORDERED: FLUoxetine CAP* 20 MG PO ONE (10:50)
[2017-04-18] MEDS ORDERED: Lisinopril TAB* 10 MG PO ONE (10:52)
[2017-04-18] MEDS: Nystatin TOP POWDER* 15 GM BTL TOPICAL SCH ×2 (11:18→22:58)
[2017-04-18] MEDS: sulfaSALAzine TAB* 500 MG PO SCH ×5 (11:21→23:07)
[2017-04-18] MEDS: Levothyroxine TAB* 100 MCG TAB PO ONE (11:23)
[2017-04-18] MEDS ORDERED: Al Hydrox/Mg Hydrox/Simet LIQ* 30 ML UDC PO PRN (11:34)
[2017-04-18] MEDS ORDERED: clonazePAM TAB(*) 0.5 MG PO PRN ×2 (12:00→15:00)
[2017-04-18] MEDS: Acetaminophen TAB* 325 MG PO PRN (16:16)
[2017-04-18] MEDS: Gabapentin CAP(*) 400 MG PO SCH ×2 (21:47→21:49)
[2017-04-18] MEDS: metFORMIN* 500 MG TAB PO SCH (21:48)
[2017-04-18] MEDS: traZODone TAB* 100 MG PO SCH (21:48)
[2017-04-18] MEDS: clonazePAM TAB(*) 1 MG PO SCH (21:50)
[2017-04-18] MEDS: CMCS:Lovastatin (NF) 10 MG TAB PO SCH (22:57)
[2017-04-18] MEDS ORDERED: oxyCODONE/Acetamin 5/325 MG* TAB PO ONE (23:00)
[2017-04-19] MEDS: Gabapentin CAP(*) 400 MG PO SCH ×4 (04:05→20:58)
[2017-04-19] MEDS: sulfaSALAzine TAB* 500 MG PO SCH ×5 (05:05→21:00)
[2017-04-19] MEDS: PTO:Liraglutide (NF) 18 MG/3 ML SUBCUT SCH (07:52)
[2017-04-19] MEDS: Nystatin TOP POWDER* 15 GM BTL TOPICAL SCH ×2 (07:53→21:01)
[2017-04-19] MEDS: clonazePAM TAB(*) 1 MG PO SCH ×2 (09:45→21:00)
[2017-04-19] MEDS: Levothyroxine TAB* 100 MCG TAB PO SCH (09:45)
[2017-04-19] MEDS: Lisinopril TAB* 10 MG PO SCH (09:46)
[2017-04-19] MEDS: FLUoxetine CAP* 20 MG PO SCH (09:46)
[2017-04-19] MEDS: metFORMIN* 500 MG TAB PO SCH ×2 (09:47→21:09)
[2017-04-19] MEDS: PTO:Pantoprazole TAB (NF) 20 MG TAB PO SCH (09:47)
[2017-04-19] MEDS: Levothyroxine TAB* 100 MCG TAB PO ONE (09:49)
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
[2017-04-19] MEDS: ARIPiprazole TAB* 5 MG PO SCH (20:59)
[2017-04-19] MEDS ORDERED: oxyCODONE/Acetamin 5/325 MG* TAB PO ONE (21:00)
[2017-04-19] MEDS: traZODone TAB* 100 MG PO SCH (21:01)
[2017-04-19] MEDS: cloNIDine TAB* 0.1 MG PO SCH (21:01)
[2017-04-19] MEDS: CMCS:Lovastatin (NF) 10 MG TAB PO SCH (21:01)
[2017-04-20] MEDS: FLUoxetine CAP* 20 MG PO SCH (09:24)
[2017-04-20] MEDS: cloNIDine TAB* 0.1 MG PO SCH ×2 (09:24→22:20)
[2017-04-20] MEDS: Lisinopril TAB* 10 MG PO SCH (09:24)
[2017-04-20] MEDS: metFORMIN* 500 MG TAB PO SCH ×2 (09:24→22:19)
[2017-04-20] MEDS: clonazePAM TAB(*) 1 MG PO SCH ×2 (09:26→22:19)
[2017-04-20] MEDS: Acetaminophen TAB* 325 MG PO PRN (09:26)
[2017-04-20] MEDS: Levothyroxine TAB* 100 MCG TAB PO SCH (09:27)
[2017-04-20] MEDS: PTO:Liraglutide (NF) 18 MG/3 ML SUBCUT SCH (09:28)
[2017-04-20] MEDS: sulfaSALAzine TAB* 500 MG PO SCH ×3 (09:28→17:48)
[2017-04-20] MEDS: Nystatin TOP POWDER* 15 GM BTL TOPICAL SCH ×2 (09:29→22:21)
[2017-04-20] MEDS: PTO:Pantoprazole TAB (NF) 20 MG TAB PO SCH (09:29)
[2017-04-20] MEDS: Gabapentin CAP(*) 400 MG PO SCH ×4 (09:43→22:17)
--- NOTE | 2017-04-20 15:05 | PN ---
Subjective - Subjective Date of Service: 04/20/17 Service Type: 22407 Hosp care 35 min high complexity Subjective: Noemi is somewhat weepy and labile today. She is agreeable to discussing her stay here and she feels like, and we agree, that it may be a good idea for her to spend more time here at the hospital. She is significantly relieved by this. She talks about being a mother hen and having a hard time taking care of herself first. She is interacting well with the other women who are in the milieu, playing cards and laughing. She states she enjoys other people, but she knows she alienates them with her assertive/aggressive snapping at others. We are targeting this behavior with the addition of clonidine and Abilify. She reports being in pain and the oxycodone prescribed is helpful. Noemi is frequently rubbing her ostomy site. She had a wound consult (please see note). Objective - Appearance Appearance: Obese Dysmorphic Features: No Hygiene: Normal Grooming: Fairly Well Kept - Behavior Psychomotor Activities: Normal Exhibits Abnormal Movement: No - Attitude and Relatedness Attitude and Relatedness: Needy Eye Contact: Good - Speech Quality: Pressured Latencies: Normal Quantity: Copious - Mood Patient's Decription of Mood: "Sad" - Affect Observed Affect: Labile - Thought Process Patient's Thought Process: Coherent Thought Content: No Passive Wish, No Suicidal Planning, No Homicidal Ideation, No Paranoid Ideation - Sensorium Experiencing Hallucinations: No, Sensorium is Clear Type of Hallucinations: Visual: No, Auditory: No, Command: No - Level of Consciousness Level of Consciousness: Alert Orientation: Yes Intact, Yes Orientated to Time, Yes Orientated to Place, Yes Orientated to Person - Impulse Control Impulse Control: Impaired - Insight and Judgement Insight and Judgement: Fair - Group Participation Particating in Group Activities: Yes - Medication Management Medication Management Adherence: Yes - Additional Observations Comments: Most noticeable today is Noemi's lability which veers in the direction of unhappiness rather than her usual fury. Assessment - Assessment Merits Inpatient Hospitalization: For Immediate Safety, For Stabilization Inpatient DSM-V Dx: F33.2 - GAB, r/o PTSD Clinical Impression: This is a 56-year-old woman with a long list of medical problems and a history of explosive outbursts toward her family and strangers. She takes many medications, but none attend to her deep distress and explosiveness. Plan - Plan Treatment Plan: Name: OLIVER PRESTON Birthdate: 1960 [id number] Continued Medication Management: Different Medication Medications: Current Medications Acetaminophen (Tylenol Tab*) 650 mg PO Q4H PRN PRN Reason: for pain; or Temp >101 F Last Admin: 04/20/17 09:26 Dose: 650 mg Al Hydrox/Mg Hydrox/Simethicone (Maalox Plus*) 30 ml PO Q4H PRN PRN Reason: INDIGESTION Last Admin: 04/19/17 14:14 Dose: 30 ml Aripiprazole (Abilify Tab*) 5 mg PO BEDTIME [facility] Last Admin: 04/19/17 20:59 Dose: 5 mg Clonazepam (Klonopin Tab(*)) 1 mg PO BEDTIME [facility] Last Admin: 04/19/17 21:00 Dose: 1 mg Clonazepam (Klonopin Tab(*)) 1 mg PO QAM [facility] Last Admin: 04/20/17 09:26 Dose: 1 mg Clonazepam (Klonopin Tab(*)) 0.5 mg PO 1200 PRN PRN Reason: ANXIETY Clonidine HCl (Catapres Tab*) 0.1 mg PO BID [facility] Last Admin: 04/20/17 09:24 Dose: 0.1 mg Fluoxetine HCl (Prozac Cap*) 80 mg PO DAILY [facility] Last Admin: 04/20/17 09:24 Dose: 80 mg Gabapentin (Neurontin Cap(*)) 400 mg PO 0400,1200,2000 [facility] Last Admin: 04/20/17 12:50 Dose: 400 mg Gabapentin (Neurontin Cap(*)) 800 mg PO BEDTIME [facility] Last Admin: 04/19/17 20:58 Dose: 800 mg Levothyroxine Sodium (Synthroid Tab*) 200 mcg PO 0600 [facility] Last Admin: 04/20/17 09:27 Dose: 200 mcg Liraglutide (Victoza (Nf)) 1.2 mg SUBCUT DAILY [facility] Last Admin: 04/20/17 09:28 Dose: Not Given Lisinopril (Prinivil Tab*) 20 mg PO DAILY [facility] Last Admin: 04/20/17 09:24 Dose: 20 mg Lovastatin (Mevacor (Nf)) 10 mg PO BEDTIME [facility] PRN Reason: Protocol Last Admin: 04/19/17 21:01 Dose: 10 mg Metformin HCl (Glucophage*) 500 mg PO BID [facility] Last Admin: 04/20/17 09:24 Dose: 500 mg Nystatin (Nystatin Top Powder*) 1 applic TOPICAL BID [facility] Last Admin: 04/20/17 09:29 Dose: 1 applic Oxycodone/Acetaminophen (Percocet 5/325 Tab*) 1 tab PO ONCE ONE Stop: 04/20/17 21:01 Pantoprazole Sodium (Protonix Tab (Nf)) 20 mg PO DAILY [facility] Last Admin: 04/20/17 09:29 Dose: Not Given Sulfasalazine (Azulfidine Tab*) 500 mg PO 0500,1100,1700,2300 [facility] Last Admin: 04/20/17 09:29 Dose: 500 mg Tramadol HCl (Ultram*) 50 mg PO QID PRN PRN Reason: PAIN Trazodone HCl (Desyrel Tab*) 100 mg PO BEDTIME [facility] Last Admin: 04/19/17 21:01 Dose: 100 mg - Discharge Plan Discharge Plan: Outpatient Follow Up Outpatient Program: [facility]
[2017-04-20] MEDS ORDERED: oxyCODONE/Acetamin 5/325 MG* TAB PO ONE (21:00)
[2017-04-20] MEDS: CMCS:Lovastatin (NF) 10 MG TAB PO SCH (22:14)
[2017-04-20] MEDS: ARIPiprazole TAB* 5 MG PO SCH (22:18)
[2017-04-20] MEDS: traZODone TAB* 100 MG PO SCH (22:20)
[2017-04-21] MEDS: sulfaSALAzine TAB* 500 MG PO SCH ×5 (05:22→22:46)
[2017-04-21] MEDS: Gabapentin CAP(*) 400 MG PO SCH ×4 (05:23→21:45)
[2017-04-21] MEDS: Levothyroxine TAB* 100 MCG TAB PO SCH (09:13)
[2017-04-21] MEDS: FLUoxetine CAP* 20 MG PO SCH (09:14)
[2017-04-21] MEDS: clonazePAM TAB(*) 1 MG PO SCH ×2 (09:14→21:47)
[2017-04-21] MEDS: cloNIDine TAB* 0.1 MG PO SCH ×2 (09:14→21:49)
[2017-04-21] MEDS: Lisinopril TAB* 10 MG PO SCH (09:15)
[2017-04-21] MEDS: PTO:Pantoprazole TAB (NF) 20 MG TAB PO SCH (09:16)
[2017-04-21] MEDS: Nystatin TOP POWDER* 15 GM BTL TOPICAL SCH ×2 (09:16→21:57)
[2017-04-21] MEDS: metFORMIN* 500 MG TAB PO SCH ×2 (09:16→21:49)
[2017-04-21] MEDS: Acetaminophen TAB* 325 MG PO PRN (09:17)
[2017-04-21] MEDS: PTO:Liraglutide (NF) 18 MG/3 ML SUBCUT SCH (11:31)
--- NOTE | 2017-04-21 11:52 | PN ---
[facility]: Group Therapy Note - Service Type Service Type: [id number] Group Psychotherapy - Cognitive Behavioral Group Therapy ( CBT):Patient was attentive and participatory in CBT programming this morning, and remained in good behavioral control. Patient expressed positive insights regarding relevant treatment interventions and goals.
--- NOTE | 2017-04-21 11:52 | PN ---
Subjective - Subjective Date of Service: 04/21/17 Service Type: [id number] Hosp care 35 min high complexity Subjective: Noemi is tearful today. She describes feeling like no one cares about her or listens to her or meets her needs. I discussed with a staff member whether this was the case, and it appears Noemi is most upset when her needs are not met immediately. This leads her to feel as though she doesn't matter and it makes her feel as though her life is not worth living. We discussed following these thoughts to their end and considering whether her emotional conclusions match her logical conclusions. Objective - Appearance Appearance: Obese Dysmorphic Features: No Hygiene: Normal Grooming: Fairly Well Kept - Behavior Psychomotor Activities: Normal Exhibits Abnormal Movement: No - Attitude and Relatedness Attitude and Relatedness: Needy Eye Contact: Good - Speech Quality: Pressured Latencies: Normal Quantity: Copious - Mood Patient's Decription of Mood: "Upset" - Affect Observed Affect: Labile Affect Consistent with: Dysphoria - Thought Process Patient's Thought Process: Coherent Thought Content: Yes Passive Wish, Yes Suicidal Planning, No Homicidal Ideation, No Paranoid Ideation - Sensorium Experiencing Hallucinations: No, Sensorium is Clear Type of Hallucinations: Visual: No, Auditory: No, Command: No - Level of Consciousness Level of Consciousness: Alert Orientation: Yes Intact, Yes Orientated to Time, Yes Orientated to Place, Yes Orientated to Person - Impulse Control Impulse Control: Poor - Insight and Judgement Insight and Judgement: Fair - Group Participation Particating in Group Activities: Yes - Medication Management Medication Management Adherence: Yes - Additional Observations Comments: Noemi is angry and sad today. She continues to threaten suicide if she goes home. Her impulsivity is high. Assessment - Assessment Merits Inpatient Hospitalization: For Immediate Safety Inpatient DSM-V Dx: F33.2 - GAB, r/o PTSD Clinical Impression: This is a 56-year-old woman with a long list of medical problems and a history of explosive outbursts toward her family and strangers. She takes many medications, but none attend to her deep distress and explosiveness. Plan - Plan Treatment Plan: Name: OLIVER PRESTON Birthdate: 1960 [id number] Continued Medication Management: Consider Medication Medications: Current Medications Acetaminophen (Tylenol Tab*) 650 mg PO Q4H PRN PRN Reason: for pain; or Temp >101 F Last Admin: 04/21/17 09:17 Dose: 650 mg Al Hydrox/Mg Hydrox/Simethicone (Maalox Plus*) 30 ml PO Q4H PRN PRN Reason: INDIGESTION Last Admin: 04/19/17 14:14 Dose: 30 ml Aripiprazole (Abilify Tab*) 5 mg PO BEDTIME [facility] Last Admin: 04/20/17 22:18 Dose: 5 mg Clonazepam (Klonopin Tab(*)) 1 mg PO BEDTIME [facility] Last Admin: 04/20/17 22:19 Dose: 1 mg Clonazepam (Klonopin Tab(*)) 1 mg PO QAM [facility] Last Admin: 04/21/17 09:14 Dose: 1 mg Clonazepam (Klonopin Tab(*)) 0.5 mg PO 1200 PRN PRN Reason: ANXIETY Clonidine HCl (Catapres Tab*) 0.1 mg PO BID [facility] Last Admin: 04/21/17 09:14 Dose: 0.1 mg Fluoxetine HCl (Prozac Cap*) 80 mg PO DAILY [facility] Last Admin: 04/21/17 09:14 Dose: 80 mg Gabapentin (Neurontin Cap(*)) 400 mg PO 0400,1200,2000 [facility] Last Admin: 04/21/17 11:33 Dose: 400 mg Gabapentin (Neurontin Cap(*)) 800 mg PO BEDTIME [facility] Last Admin: 04/20/17 22:17 Dose: 800 mg Levothyroxine Sodium (Synthroid Tab*) 200 mcg PO 0600 [facility] Last Admin: 04/21/17 09:13 Dose: 200 mcg Liraglutide (Victoza (Nf)) 1.2 mg SUBCUT DAILY [facility] Last Admin: 04/21/17 11:31 Dose: 1.2 mg Lisinopril (Prinivil Tab*) 20 mg PO DAILY [facility] Last Admin: 04/21/17 09:15 Dose: 20 mg Lovastatin (Mevacor (Nf)) 10 mg PO BEDTIME [facility] PRN Reason: Protocol Last Admin: 04/20/17 22:14 Dose: 10 mg Metformin HCl (Glucophage*) 500 mg PO BID [facility] Last Admin: 04/21/17 09:16 Dose: 500 mg Nystatin (Nystatin Top Powder*) 1 applic TOPICAL BID [facility] Last Admin: 04/21/17 09:16 Dose: 1 applic Pantoprazole Sodium (Protonix Tab (Nf)) 20 mg PO DAILY [facility] Last Admin: 04/21/17 09:16 Dose: 20 mg Sulfasalazine (Azulfidine Tab*) 500 mg PO 0500,1100,1700,2300 [facility] Last Admin: 04/21/17 11:33 Dose: 500 mg Tramadol HCl (Ultram*) 50 mg PO QID PRN PRN Reason: PAIN Trazodone HCl (Desyrel Tab*) 100 mg PO BEDTIME [facility] Last Admin: 04/20/17 22:20 Dose: 100 mg - Discharge Plan Discharge Plan: Outpatient Follow Up Outpatient Program: [facility] Additional Comments: Noemi will stabilize to a moderate degree. She will take new medications to help reduce her immediate distress and advise her to continue, hopefully with the [facility] team, with therapy and medications.
[2017-04-21] MEDS: ARIPiprazole TAB* 5 MG PO SCH (21:47)
[2017-04-21] MEDS: traZODone TAB* 100 MG PO SCH (21:48)
[2017-04-21] MEDS: CMCS:Lovastatin (NF) 10 MG TAB PO SCH (22:46)
[2017-04-21] MEDS ORDERED: oxyCODONE/Acetamin 5/325 MG* TAB PO ONE (23:00)
[2017-04-22] MEDS: Gabapentin CAP(*) 400 MG PO SCH ×4 (07:43→20:52)
[2017-04-22] MEDS: sulfaSALAzine TAB* 500 MG PO SCH ×4 (07:43→23:30)
[2017-04-22] MEDS: PTO:Liraglutide (NF) 18 MG/3 ML SUBCUT SCH (09:08)
[2017-04-22] MEDS: PTO:Pantoprazole TAB (NF) 20 MG TAB PO SCH (09:10)
[2017-04-22] MEDS: Lisinopril TAB* 10 MG PO SCH (09:12)
[2017-04-22] MEDS: FLUoxetine CAP* 20 MG PO SCH (09:12)
[2017-04-22] MEDS: Polyethylene Glycol 3350* 17 GM PACKET PO SCH (09:12)
[2017-04-22] MEDS: cloNIDine TAB* 0.1 MG PO SCH ×2 (09:12→20:52)
[2017-04-22] MEDS: Docusate CAP* 100 MG PO SCH ×2 (09:13→20:52)
[2017-04-22] MEDS: Levothyroxine TAB* 100 MCG TAB PO SCH (09:13)
[2017-04-22] MEDS: metFORMIN* 500 MG TAB PO SCH ×2 (09:13→20:51)
[2017-04-22] MEDS: Nystatin TOP POWDER* 15 GM BTL TOPICAL SCH ×2 (09:14→20:57)
[2017-04-22] MEDS: clonazePAM TAB(*) 1 MG PO SCH ×2 (09:14→20:51)
--- NOTE | 2017-04-22 11:53 | PN ---
[facility]: Group Therapy Note - Service Type Service Type: [id number] Group Psychotherapy - Cognitive Behavioral Group Therapy ( CBT):Patient was attentive and participatory in CBT programming this morning, and remained in good behavioral control. Patient expressed positive insights regarding relevant treatment interventions and goals.
[2017-04-22] MEDS ORDERED: Magnesium Hydroxide LIQ* 30 ML UDC PO PRN (13:51)
--- NOTE | 2017-04-22 13:57 | PN ---
Subjective - Subjective Date of Service: 04/22/17 Service Type: 20100 Hosp care 15 min low complexity Subjective: Noemi complains today of not having a bowel movement in 3 days. We will attend to that today with milk of magnesia. Noemi also is concerned that today she cannot cry. We discuss that this might be a passing phase and that she was able to cry yesterday. We further discuss that change is good in her case as her life has been stagnant for quite some time. Objective - Appearance Appearance: Obese Dysmorphic Features: No Hygiene: Normal Grooming: Fairly Well Kept - Behavior Psychomotor Activities: Normal Exhibits Abnormal Movement: No - Attitude and Relatedness Attitude and Relatedness: Needy Eye Contact: Good - Speech Quality: Unpressured Latencies: Normal Quantity: Copious - Mood Patient's Decription of Mood: "Upset" - Affect Observed Affect: Fair Affect Consistent with: Dysphoria - Thought Process Patient's Thought Process: Coherent Thought Content: Yes Passive Wish, Yes Suicidal Planning, No Homicidal Ideation, No Paranoid Ideation - Sensorium Experiencing Hallucinations: No, Sensorium is Clear - Level of Consciousness Level of Consciousness: Agitated Orientation: Yes Intact, Yes Orientated to Time, Yes Orientated to Place, Yes Orientated to Person - Impulse Control Impulse Control: Impaired - Insight and Judgement Insight and Judgement: Fair - Group Participation Particating in Group Activities: Yes - Medication Management Medication Management Adherence: Yes - Additional Observations Comments: Noemi is angry and sad today. She continues to threaten suicide if she goes home. Her impulsivity continues to be high. Assessment - Assessment Merits Inpatient Hospitalization: For Immediate Safety, For Stabilization Inpatient DSM-V Dx: F33.2 - GAB, r/o PTSD Clinical Impression: This is a 56-year-old woman with a long list of medical problems and a history of explosive outbursts toward her family and strangers. She takes many medications, but none attend to her deep distress and explosiveness. Plan - Plan Treatment Plan: Name: OLIVER PRESTON Birthdate: 1960 [id number] Medications: Current Medications Acetaminophen (Tylenol Tab*) 650 mg PO Q4H PRN PRN Reason: for pain; or Temp >101 F Last Admin: 04/21/17 09:17 Dose: 650 mg Al Hydrox/Mg Hydrox/Simethicone (Maalox Plus*) 30 ml PO Q4H PRN PRN Reason: INDIGESTION Last Admin: 04/19/17 14:14 Dose: 30 ml Aripiprazole (Abilify Tab*) 5 mg PO BEDTIME [facility] Last Admin: 04/21/17 21:47 Dose: 5 mg Clonazepam (Klonopin Tab(*)) 1 mg PO BEDTIME [facility] Last Admin: 04/21/17 21:47 Dose: 1 mg Clonazepam (Klonopin Tab(*)) 1 mg PO QAM [facility] Last Admin: 04/22/17 09:14 Dose: 1 mg Clonazepam (Klonopin Tab(*)) 0.5 mg PO 1200 PRN PRN Reason: ANXIETY Clonidine HCl (Catapres Tab*) 0.1 mg PO BID [facility] Last Admin: 04/22/17 09:12 Dose: 0.1 mg Docusate Sodium (Colace Cap*) 100 mg PO BID [facility] Last Admin: 04/22/17 09:13 Dose: 100 mg Fluoxetine HCl (Prozac Cap*) 80 mg PO DAILY [facility] Last Admin: 04/22/17 09:12 Dose: 80 mg Gabapentin (Neurontin Cap(*)) 400 mg PO 0400,1200,2000 [facility] Last Admin: 04/22/17 12:06 Dose: 400 mg Gabapentin (Neurontin Cap(*)) 800 mg PO BEDTIME [facility] Last Admin: 04/21/17 21:44 Dose: 800 mg Levothyroxine Sodium (Synthroid Tab*) 200 mcg PO 0600 [facility] Last Admin: 04/22/17 09:13 Dose: 200 mcg Liraglutide (Victoza (Nf)) 1.2 mg SUBCUT DAILY [facility] Last Admin: 04/22/17 09:08 Dose: 1.2 mg Lisinopril (Prinivil Tab*) 20 mg PO DAILY [facility] Last Admin: 04/22/17 09:12 Dose: 20 mg Lovastatin (Mevacor (Nf)) 10 mg PO BEDTIME [facility] PRN Reason: Protocol Last Admin: 04/21/17 22:46 Dose: 10 mg Magnesium Hydroxide (Milk Of Magnesia Liq*) 30 ml PO Q6H PRN PRN Reason: CONSTIPATION Metformin HCl (Glucophage*) 500 mg PO BID [facility] Last Admin: 04/22/17 09:13 Dose: 500 mg Nystatin (Nystatin Top Powder*) 1 applic TOPICAL BID [facility] Last Admin: 04/22/17 09:14 Dose: Not Given Oxycodone/Acetaminophen (Percocet 5/325 Tab*) 1 tab PO BEDTIME [facility] Pantoprazole Sodium (Protonix Tab (Nf)) 20 mg PO DAILY [facility] Last Admin: 04/22/17 09:10 Dose: 20 mg Polyethylene Glycol/Electrolytes (Miralax*) 17 gm PO DAILY [facility] Last Admin: 04/22/17 09:12 Dose: 17 gm Sulfasalazine (Azulfidine Tab*) 500 mg PO 0500,1100,1700,2300 [facility] Last Admin: 04/22/17 12:07 Dose: 500 mg Tramadol HCl (Ultram*) 50 mg PO QID PRN PRN Reason: PAIN Trazodone HCl (Desyrel Tab*) 100 mg PO BEDTIME [facility] Last Admin: 04/21/17 21:48 Dose: 100 mg - Discharge Plan Discharge Plan: Outpatient Follow Up Outpatient Program: [facility] Additional Comments: Noemi will stabilize to a moderate degree. She will take new medications to help reduce her immediate distress and advise her to continue, hopefully with the [facility] team, with therapy and medications.
[2017-04-22] MEDS: traMADol TAB* 50 MG PO PRN (15:40)
--- NOTE | 2017-04-22 17:13 | CONSULT ---
Consult Consult: HOSPITALIST CONSULT: REASON FOR CONSULTATION: No BM REQUESTING PROVIDER: Dr. Dickey HPI: Ms. Nash is a 56 yo F who has a h/o inflammatory bowel disease, type II DM, HTN and h/o past psychiatric hospitalizations who was admitted to the [facility] for homicidal and suicidal ideation. When she first arrived to the [facility] she states she was having profuse BMs. She states ordinarily she will change her colostomy bag 8x/day. Over the last 3 days she has had no to minimal output. Yesterday and today she took multiple bowel meds without any significant output. PMHx: UC/Crohn's type II DM LEVI GERD Hypothyroidism PSHx: Partial colectomy with ostomy Partial thyroidectomy 2 Hysterectomy All: Niacin, lactose, adhesive tape Meds: Reviewed today FamHx: unknown parental history SocHx: 20 pack year history of smoking, she does not drink routinely, denies recreational drugs, ROS: Complete 11 system review of systems performed. Pertinent positives and negatives as per HPI and otherwise negative. PE: Selected Entries 04/22/17 07:02 Temperature 97.2 F Pulse Rate 65 Respiratory 16 Rate Blood Pressure 127/75 (mmHg) O2 Sat by Pulse 98 Oximetry gen: awake, obese, middle aged female sitting up in bed, NAD card: nl S1S2 RRR, no murmurs, no edema lungs: CTA B/L abd: BS+ soft, ND, ostomy in RUQ, small amount of stool in ostomy bag extremities: no edema, no joint deformities skin: erythema surrounding stoma, small ulcers surrounding stoma, pt seen picking at abdominal scar neuro: nl sensation, nl strength Labs: CBC, BMP pending A/P: Ms Nash is a 56 yo F who has a h/o IBD, type II DM, LEVI and depression/ anxiety who now has not had a BM for several days. 1. No BM: small amount of stool in ostomy this afternoon. Will get AXR to r/o obstruction (seems unlikely). Will also check CBC and BMP. Continue bowel medications. I am not overly concerned at this point. The patient also c/o BRBPR. She has a blind pouch but still with some colon left. ? if the bleeding may be secondary to her h/o IBD. She should follow up with GI or her surgeon for evaluation of this. 2. Type II DM: Sugars are under fair control. Continue metformin and victoza. 3. HTN: continue lisinopril. 4. LEVI: continue CPAP. 5. Will follow up tomorrow.
--- NOTE | 2017-04-22 18:32 | RAD ---
Indication: Post colostomy 2014. Minimal output for 3 days. Comparison: March 14, 2017 CT. Technique: Supine and upright views of the abdomen. Report: No radiographic evidence for free air. Postsurgical change of previous ventral hernia repair with persistent finding of recurrent supraumbilical ventral hernia based on correlation with the March 14, 2017 CT. No dilated bowel loops evident to indicate obstruction. LEFT lower quadrant ostomy site noted. Pelvic phleboliths noted. No suspicious calcifications or mass effect. Unremarkable soft tissue contours. IMPRESSION: Moderate stool in the transverse colon. No evidence for bowel obstruction. Postsurgical change of previous ventral hernia repair with persistent finding of recurrent supraumbilical ventral hernia based on correlation with the March 14, 2017 CT
[2017-04-22] MEDS: ARIPiprazole TAB* 5 MG PO SCH (20:51)
[2017-04-22] MEDS: oxyCODONE/Acetamin 5/325 MG* TAB PO SCH (20:52)
[2017-04-22] MEDS: CMCS:Lovastatin (NF) 10 MG TAB PO SCH (20:52)
[2017-04-22] MEDS: traZODone TAB* 100 MG PO SCH (20:52)
[2017-04-22 22:38] LABS: Hematocrit 39 % (35-47); Hemoglobin 13.7 g/dl (12.0-16.0); Mean Corpuscular HGB Conc 35 g/dl (31-36); Mean Corpuscular Hemoglobin 32 pg (27-31); Mean Corpuscular Volume 92 fL (80-97); Mean Platelet Volume 7 um3 (7.4-10.4); Platelet Count 301 10^3/ul (150-450); Red Blood Count 4.25 10^6/ul (4.0-5.4); Red Cell Distribution Width 13 % (10.5-15); White Blood Count 9.2 10^3/ul (3.5-10.8)
[2017-04-22 22:55] LABS: EGFR Non-African American 85.8 (>60)
[2017-04-23] MEDS: sulfaSALAzine TAB* 500 MG PO SCH ×4 (05:15→23:00)
[2017-04-23] MEDS: Gabapentin CAP(*) 400 MG PO SCH ×4 (05:15→21:10)
[2017-04-23] MEDS: Levothyroxine TAB* 100 MCG TAB PO SCH (05:15)
[2017-04-23] MEDS: clonazePAM TAB(*) 1 MG PO SCH ×2 (08:55→21:07)
[2017-04-23] MEDS: Lisinopril TAB* 10 MG PO SCH (08:55)
[2017-04-23] MEDS: metFORMIN* 500 MG TAB PO SCH ×2 (08:55→21:07)
[2017-04-23] MEDS: cloNIDine TAB* 0.1 MG PO SCH ×2 (08:55→21:08)
[2017-04-23] MEDS: FLUoxetine CAP* 20 MG PO SCH (08:55)
[2017-04-23] MEDS: Docusate CAP* 100 MG PO SCH ×2 (08:55→21:07)
[2017-04-23] MEDS: PTO:Pantoprazole TAB (NF) 20 MG TAB PO SCH (08:56)
[2017-04-23] MEDS: Polyethylene Glycol 3350* 17 GM PACKET PO SCH (08:56)
[2017-04-23] MEDS: PTO:Liraglutide (NF) 18 MG/3 ML SUBCUT SCH (09:00)
[2017-04-23] MEDS: Nystatin TOP POWDER* 15 GM BTL TOPICAL SCH ×2 (09:02→21:10)
[2017-04-23] MEDS: traMADol TAB* 50 MG PO PRN (11:10)
--- NOTE | 2017-04-23 15:07 | PN ---
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 She is in fairly good spirits, although she has had puss and redness at her ostomy site that has required evaluation by the hospitalist service. An abdominal XR did not reveal obstruction. The patient denies SI or HI. She states her medications are causing perhaps some oversedation, but she is willing to live with this to see if it diminishes as she adjusts to them. She is quite pleasant and complains only of dry mouth and nasopharynx from the air here on the unit. Objective - Appearance Appearance: Obese Dysmorphic Features: No Hygiene: Normal Grooming: Fairly Well Kept - Behavior Psychomotor Activities: Normal Exhibits Abnormal Movement: No - Attitude and Relatedness Attitude and Relatedness: Cooperative Eye Contact: Good - Speech Quality: Unpressured Latencies: Normal Quantity: Appropriate - Mood Patient's Decription of Mood: "Fine" - Affect Observed Affect: Good Affect Consistent with: Euthymia - Thought Process Patient's Thought Process: Coherent Thought Content: No Passive Wish, No Suicidal Planning, No Homicidal Ideation, No Paranoid Ideation - Sensorium Experiencing Hallucinations: No, Sensorium is Clear Type of Hallucinations: Visual: No, Auditory: No, Command: No - Level of Consciousness Level of Consciousness: Alert Orientation: Yes Intact, Yes Orientated to Time, Yes Orientated to Place, Yes Orientated to Person - Impulse Control Impulse Control: Tenuous - Insight and Judgement Insight and Judgement: Fair - Group Participation Particating in Group Activities: Yes - Medication Management Medication Management Adherence: Yes Assessment - Assessment Merits Inpatient Hospitalization: For Immediate Safety, For Stabilization Inpatient DSM-V Dx: F33.2 - GAB, r/o PTSD Clinical Impression: 56 y.o. , obese white female with a history of PTSD, borderline personality disorder and GAB admitted on a voluntary basis due to SI. Plan - Plan Treatment Plan: Name: OLIVER PRESTON Birthdate: 1960 [id number] The patient has been started on trials of aripiprazole and clonidine. She appears to be improving. Appreciate hospitalist input on her GI situation. Continue to treat in the inpatient setting. Continued Medication Management: Different Medication Medications: Current Medications Acetaminophen (Tylenol Tab*) 650 mg PO Q4H PRN PRN Reason: for pain; or Temp >101 F Last Admin: 04/21/17 09:17 Dose: 650 mg Al Hydrox/Mg Hydrox/Simethicone (Maalox Plus*) 30 ml PO Q4H PRN PRN Reason: INDIGESTION Last Admin: 04/19/17 14:14 Dose: 30 ml Aripiprazole (Abilify Tab*) 5 mg PO BEDTIME [facility] Last Admin: 04/22/17 20:51 Dose: 5 mg Clonazepam (Klonopin Tab(*)) 1 mg PO BEDTIME [facility] Last Admin: 04/22/17 20:51 Dose: 1 mg Clonazepam (Klonopin Tab(*)) 1 mg PO QAM [facility] Last Admin: 04/23/17 08:55 Dose: 1 mg Clonazepam (Klonopin Tab(*)) 0.5 mg PO 1200 PRN PRN Reason: ANXIETY Clonidine HCl (Catapres Tab*) 0.1 mg PO BID [facility] Last Admin: 04/23/17 08:55 Dose: 0.1 mg Docusate Sodium (Colace Cap*) 100 mg PO BID [facility] Last Admin: 04/23/17 08:55 Dose: 100 mg Fluoxetine HCl (Prozac Cap*) 80 mg PO DAILY [facility] Last Admin: 04/23/17 08:55 Dose: 80 mg Gabapentin (Neurontin Cap(*)) 400 mg PO 0400,1200,2000 [facility] Last Admin: 04/23/17 11:08 Dose: 400 mg Gabapentin (Neurontin Cap(*)) 800 mg PO BEDTIME [facility] Last Admin: 04/22/17 20:52 Dose: 800 mg Levothyroxine Sodium (Synthroid Tab*) 200 mcg PO 0600 [facility] Last Admin: 04/23/17 05:15 Dose: 200 mcg Liraglutide (Victoza (Nf)) 1.2 mg SUBCUT DAILY [facility] Last Admin: 04/23/17 09:00 Dose: 1.2 mg Lisinopril (Prinivil Tab*) 20 mg PO DAILY [facility] Last Admin: 04/23/17 08:55 Dose: 20 mg Lovastatin (Mevacor (Nf)) 10 mg PO BEDTIME [facility] PRN Reason: Protocol Last Admin: 04/22/17 20:52 Dose: 10 mg Magnesium Hydroxide (Milk Of Magnesia Liq*) 30 ml PO Q6H PRN PRN Reason: CONSTIPATION Last Admin: 04/22/17 14:47 Dose: 30 ml Metformin HCl (Glucophage*) 500 mg PO BID [facility] Last Admin: 04/23/17 08:55 Dose: 500 mg Nystatin (Nystatin Top Powder*) 1 applic TOPICAL BID [facility] Last Admin: 04/23/17 09:02 Dose: Not Given Oxycodone/Acetaminophen (Percocet 5/325 Tab*) 1 tab PO BEDTIME [facility] Last Admin: 04/22/17 20:52 Dose: 1 tab Pantoprazole Sodium (Protonix Tab (Nf)) 20 mg PO DAILY [facility] Last Admin: 04/23/17 08:56 Dose: 20 mg Polyethylene Glycol/Electrolytes (Miralax*) 17 gm PO DAILY [facility] Last Admin: 04/23/17 08:56 Dose: 17 gm Sulfasalazine (Azulfidine Tab*) 500 mg PO 0500,1100,1700,2300 [facility] Last Admin: 04/23/17 11:08 Dose: 500 mg Tramadol HCl (Ultram*) 50 mg PO QID PRN PRN Reason: PAIN Last Admin: 04/23/17 11:10 Dose: 50 mg Trazodone HCl (Desyrel Tab*) 100 mg PO BEDTIME [facility] Last Admin: 04/22/17 20:52 Dose: 100 mg - Discharge Plan Discharge Plan: Inpatient Hospitalization Lab Results - Lab Results Lab Results: 04/21/17 04/22/17 04/22/17 07:37 12:03 22:28 WBC 9.2 RBC 4.25 Hgb 13.7 Hct 39 MCV 92 MCH 32 H MCHC 35 RDW 13 Plt Count 301 MPV 7 L Sodium Potassium Chloride Carbon Dioxide Anion Gap BUN Creatinine Est GFR ( Amer) Est GFR (Non-Af Amer) BUN/Creatinine Ratio Glucose POC Glucose (mg/dL) 138 H 100 Calcium 04/22/17 04/23/17 22:28 07:30 WBC RBC Hgb Hct MCV MCH MCHC RDW Plt Count MPV Sodium 135 Potassium 3.7 Chloride 100 L Carbon Dioxide 27 Anion Gap 8 BUN 8 Creatinine 0.71 Est GFR ( Amer) 110.3 Est GFR (Non-Af Amer) 85.8 BUN/Creatinine Ratio 11.3 Glucose 137 H POC Glucose (mg/dL) 103 H Calcium 10.1
[2017-04-23] MEDS ORDERED: Saline NASAL SPRAY 0.65%* BTL BOTH NARES PRN (15:09)
[2017-04-23] MEDS: Fluticasone NASAL SPRAY 50MCG* 16 gm SPRAY BTL BOTH NARES SCH (16:46)
[2017-04-23] MEDS: CMCS:Lovastatin (NF) 10 MG TAB PO SCH (21:05)
[2017-04-23] MEDS: ARIPiprazole TAB* 5 MG PO SCH (21:05)
[2017-04-23] MEDS: traZODone TAB* 100 MG PO SCH (21:06)
[2017-04-23] MEDS: oxyCODONE/Acetamin 5/325 MG* TAB PO SCH (21:09)
[2017-04-23] MEDS: Bacitracin OINTMENT* 0.5% 0.5 oz TUBE TOPICAL SCH (21:28)
[2017-04-24] MEDS: sulfaSALAzine TAB* 500 MG PO SCH ×4 (04:35→22:23)
[2017-04-24] MEDS: Gabapentin CAP(*) 400 MG PO SCH ×4 (04:35→22:23)
[2017-04-24] MEDS: Levothyroxine TAB* 100 MCG TAB PO SCH (05:15)
[2017-04-24] MEDS: Bacitracin OINTMENT* 0.5% 0.5 oz TUBE TOPICAL SCH ×3 (06:15→20:49)
[2017-04-24] MEDS: Nystatin TOP POWDER* 15 GM BTL TOPICAL SCH ×3 (06:15→20:49)
[2017-04-24] MEDS: FLUoxetine CAP* 20 MG PO SCH (08:05)
[2017-04-24] MEDS: Fluticasone NASAL SPRAY 50MCG* 16 gm SPRAY BTL BOTH NARES SCH (08:05)
[2017-04-24] MEDS: Lisinopril TAB* 10 MG PO SCH (08:06)
[2017-04-24] MEDS: PTO:Liraglutide (NF) 18 MG/3 ML SUBCUT SCH (08:07)
[2017-04-24] MEDS: traMADol TAB* 50 MG PO PRN ×2 (08:12→23:25)
[2017-04-24] MEDS: cloNIDine TAB* 0.1 MG PO SCH ×2 (08:34→20:50)
[2017-04-24] MEDS: clonazePAM TAB(*) 1 MG PO SCH ×2 (08:34→20:51)
[2017-04-24] MEDS: Docusate CAP* 100 MG PO SCH ×2 (08:34→20:51)
[2017-04-24] MEDS: metFORMIN* 500 MG TAB PO SCH ×2 (08:34→20:51)
[2017-04-24] MEDS: PTO:Pantoprazole TAB (NF) 20 MG TAB PO SCH (08:35)
[2017-04-24] MEDS: Polyethylene Glycol 3350* 17 GM PACKET PO SCH (08:35)
--- NOTE | 2017-04-24 14:42 | PN ---
Subjective Date of Service: 04/24/17 Interval History: Pt is feeling ok. She states today in the midst of changing her ostomy appliance she had an explosion of stool. She still feels as if she needs to go more. Her biggest complaint today is that she needs someone to clip her toe nails immediately. Objective Active Medications: Acetaminophen (Tylenol Tab*) 650 mg PO Q4H PRN PRN Reason: for pain; or Temp >101 F Last Admin: 04/21/17 09:17 Dose: 650 mg Al Hydrox/Mg Hydrox/Simethicone (Maalox Plus*) 30 ml PO Q4H PRN PRN Reason: INDIGESTION Last Admin: 04/19/17 14:14 Dose: 30 ml Aripiprazole (Abilify Tab*) 5 mg PO BEDTIME [facility] Last Admin: 04/23/17 21:05 Dose: 5 mg Bacitracin (Bacitracin Ointment*) 1 applic TOPICAL BID [facility] Last Admin: 04/24/17 08:34 Dose: Not Given Clonazepam (Klonopin Tab(*)) 1 mg PO BEDTIME [facility] Last Admin: 04/23/17 21:07 Dose: 1 mg Clonazepam (Klonopin Tab(*)) 1 mg PO QAM [facility] Last Admin: 04/24/17 08:34 Dose: 1 mg Clonazepam (Klonopin Tab(*)) 0.5 mg PO 1200 PRN PRN Reason: ANXIETY Clonidine HCl (Catapres Tab*) 0.1 mg PO BID [facility] Last Admin: 04/24/17 08:34 Dose: 0.1 mg Docusate Sodium (Colace Cap*) 100 mg PO BID [facility] Last Admin: 04/24/17 08:34 Dose: 100 mg Fluoxetine HCl (Prozac Cap*) 80 mg PO DAILY [facility] Last Admin: 04/24/17 08:05 Dose: 80 mg Fluticasone Propionate (Flonase Nasal [place] 50mcg*) 2 spray BOTH NARES DAILY [facility] Last Admin: 04/24/17 08:05 Dose: 2 spray Gabapentin (Neurontin Cap(*)) 400 mg PO 0400,1200,2000 [facility] Last Admin: 04/24/17 11:32 Dose: 400 mg Gabapentin (Neurontin Cap(*)) 800 mg PO BEDTIME [facility] Last Admin: 04/23/17 21:06 Dose: 800 mg Levothyroxine Sodium (Synthroid Tab*) 200 mcg PO 0600 [facility] Last Admin: 04/24/17 05:15 Dose: 200 mcg Liraglutide (Victoza (Nf)) 1.2 mg SUBCUT DAILY [facility] Last Admin: 04/24/17 08:07 Dose: 1.2 mg Lisinopril (Prinivil Tab*) 20 mg PO DAILY [facility] Last Admin: 04/24/17 08:06 Dose: 20 mg Lovastatin (Mevacor (Nf)) 10 mg PO BEDTIME [facility] PRN Reason: Protocol Last Admin: 04/23/17 21:05 Dose: 10 mg Magnesium Hydroxide (Milk Of Magnesia Liq*) 30 ml PO Q6H PRN PRN Reason: CONSTIPATION Last Admin: 04/22/17 14:47 Dose: 30 ml Metformin HCl (Glucophage*) 500 mg PO BID [facility] Last Admin: 04/24/17 08:34 Dose: 500 mg Nystatin (Nystatin Top Powder*) 1 applic TOPICAL BID [facility] Last Admin: 04/24/17 08:35 Dose: Not Given Oxycodone/Acetaminophen (Percocet 5/325 Tab*) 1 tab PO BEDTIME [facility] Last Admin: 04/23/17 21:09 Dose: 1 tab Pantoprazole Sodium (Protonix Tab (Nf)) 20 mg PO DAILY [facility] Last Admin: 04/24/17 08:35 Dose: 20 mg Polyethylene Glycol/Electrolytes (Miralax*) 17 gm PO DAILY [facility] Last Admin: 04/24/17 08:35 Dose: 17 gm Sodium Chloride (Sodium Chloride 0.65% Nasal [place]*) 1 spray BOTH NARES Q4H PRN PRN Reason: DRY SKIN Sulfasalazine (Azulfidine Tab*) 500 mg PO 0500,1100,1700,2300 [facility] Last Admin: 04/24/17 11:32 Dose: 500 mg Tramadol HCl (Ultram*) 50 mg PO QID PRN PRN Reason: PAIN Last Admin: 04/24/17 08:12 Dose: 50 mg Trazodone HCl (Desyrel Tab*) 100 mg PO BEDTIME [facility] Last Admin: 04/23/17 21:06 Dose: 100 mg Vital Signs - 8 hr 04/24/17 04/24/17 04/24/17 06:46 07:28 08:12 Temperature 97.2 F Pulse Rate 68 Respiratory 20 16 18 Rate Blood Pressure 130/81 (mmHg) O2 Sat by Pulse 97 Oximetry 04/24/17 04/24/17 04/24/17 08:34 08:48 11:09 Temperature Pulse Rate Respiratory 16 16 16 Rate Blood Pressure (mmHg) O2 Sat by Pulse Oximetry 04/24/17 11:32 Temperature Pulse Rate Respiratory 18 Rate Blood Pressure (mmHg) O2 Sat by Pulse Oximetry Oxygen Devices in Use Now: None Appearance: MIddle aged female sitting up in a chair, NAD Eyes: No Scleral Icterus Ears/Nose/Mouth/Throat: Mucous Membranes Moist Respiratory: Symmetrical Chest Expansion and Respiratory Effort, Clear to Auscultation Cardiovascular: NL Sounds; No Murmurs; No JVD, RRR, No Edema Abdominal: NL Sounds; No Tenderness; No Distention, - - mushy stool in ostomy bag Extremities: No Clubbing, Cyanosis Skin: No Nodules or Sclerosis, - - toe nails are not too long, no signs of infection Neurological: Alert and Oriented x 3 Result Diagrams: 04/22/17 22:28 04/22/17 22:28 Assess/Plan/Problems-Billing Ms Nash is a 56 yo F who has a h/o type II DM, IBD s/p partial colectomy and anxiety/depression who was admitted to the [facility] for homicidal and suicidal ideation and the hospitalist service was asked to see the patient for no BM for several days. - Patient Problems (1) Constipation Current Visit: Yes Status: Acute Code(s): K59.00 - CONSTIPATION, UNSPECIFIED SNOMED Code(s): 24793187 Comment: Resolved with addition of bowel meds. No further investigations needed. (2) Type II diabetes mellitus Current Visit: Yes Status: Acute Comment: Sugars are under very good control on metformin and victoza. (3) HTN (hypertension) Current Visit: Yes Status: Acute Code(s): I10 - ESSENTIAL (PRIMARY) HYPERTENSION SNOMED Code(s): 30894678 Comment: Decent control. Continue lisinopril at home dose. (4) Full code status Current Visit: Yes Status: Acute Code(s): Z78.9 - OTHER SPECIFIED HEALTH STATUS SNOMED Code(s): 091269568
[2017-04-24] MEDS: traZODone TAB* 100 MG PO SCH (20:50)
[2017-04-24] MEDS: ARIPiprazole TAB* 5 MG PO SCH (20:50)
[2017-04-24] MEDS: CMCS:Lovastatin (NF) 10 MG TAB PO SCH (20:50)
[2017-04-24] MEDS: oxyCODONE/Acetamin 5/325 MG* TAB PO SCH (22:23)
[2017-04-25] MEDS: Gabapentin CAP(*) 400 MG PO SCH ×3 (04:30→21:56)
[2017-04-25] MEDS: sulfaSALAzine TAB* 500 MG PO SCH ×3 (05:30→16:13)
[2017-04-25] MEDS: Levothyroxine TAB* 100 MCG TAB PO SCH (08:07)
[2017-04-25] MEDS: Lisinopril TAB* 10 MG PO SCH (08:08)
[2017-04-25] MEDS: metFORMIN* 500 MG TAB PO SCH ×2 (08:08→21:55)
[2017-04-25] MEDS: FLUoxetine CAP* 20 MG PO SCH (08:08)
[2017-04-25] MEDS: Docusate CAP* 100 MG PO SCH ×2 (08:09→21:57)
[2017-04-25] MEDS: clonazePAM TAB(*) 1 MG PO SCH ×2 (08:09→21:56)
[2017-04-25] MEDS: cloNIDine TAB* 0.1 MG PO SCH ×2 (08:09→21:56)
[2017-04-25] MEDS: Fluticasone NASAL SPRAY 50MCG* 16 gm SPRAY BTL BOTH NARES SCH (08:11)
[2017-04-25] MEDS: PTO:Pantoprazole TAB (NF) 20 MG TAB PO SCH (08:12)
[2017-04-25] MEDS: Nystatin TOP POWDER* 15 GM BTL TOPICAL SCH ×2 (08:12→21:57)
[2017-04-25] MEDS: Bacitracin OINTMENT* 0.5% 0.5 oz TUBE TOPICAL SCH (08:13)
[2017-04-25] MEDS: PTO:Liraglutide (NF) 18 MG/3 ML SUBCUT SCH (08:13)
[2017-04-25] MEDS: Polyethylene Glycol 3350* 17 GM PACKET PO SCH (08:14)
[2017-04-25] MEDS: traMADol TAB* 50 MG PO PRN ×2 (08:16→16:15)
--- NOTE | 2017-04-25 15:04 | PN ---
Subjective - Subjective Date of Service: 04/25/17 Service Type: 65864 Hosp care 25 min moderate complexity Subjective: Noemi is sad today because her roommate left. She has found great support in her fellow patients, but she is also interacting with them in an unhealthy, mothering way, which further causes her to neglect her own care. Kristal Carpenter and I discussed this with her, along with the topic of discharge. Noemi is concerned that she isn't ready and this, she states, is new for her as in the past she's been eager to leave. We approach the idea of discharge tomorrow and she is trepidacious but agreeable. She takes comfort in having the ACT team at her disposal. Objective - Appearance Appearance: Obese Dysmorphic Features: No Hygiene: Normal Grooming: Fairly Well Kept - Behavior Psychomotor Activities: Normal Exhibits Abnormal Movement: No - Attitude and Relatedness Attitude and Relatedness: Cooperative Eye Contact: Good - Speech Quality: Pressured Latencies: Normal Quantity: Copious - Mood Patient's Decription of Mood: "Okay" - Affect Observed Affect: Tearful - Thought Process Patient's Thought Process: Coherent Thought Content: No Passive Wish, No Suicidal Planning, No Homicidal Ideation, No Paranoid Ideation - Sensorium Experiencing Hallucinations: No, Sensorium is Clear Type of Hallucinations: Visual: No, Auditory: No, Command: No - Level of Consciousness Level of Consciousness: Alert Orientation: Yes Intact, Yes Orientated to Time, Yes Orientated to Place, Yes Orientated to Person - Impulse Control Impulse Control: Impaired - Insight and Judgement Insight and Judgement: Fair - Group Participation Particating in Group Activities: Yes - Medication Management Medication Management Adherence: Yes - Additional Observations Comments: Noemi is sad and upset, but coping well today. Assessment - Assessment Merits Inpatient Hospitalization: For Stabilization Inpatient DSM-V Dx: F33.2 - GAB, r/o PTSD Clinical Impression: This is a 56-year-old woman with a long list of medical problems and a history of explosive outbursts toward her family and strangers. She takes many medications, but none attend to her deep distress and explosiveness. Plan - Plan Treatment Plan: Name: OLIVER PRESTON Birthdate: 1960 [id number] Medications: Current Medications Acetaminophen (Tylenol Tab*) 650 mg PO Q4H PRN PRN Reason: for pain; or Temp >101 F Last Admin: 04/21/17 09:17 Dose: 650 mg Al Hydrox/Mg Hydrox/Simethicone (Maalox Plus*) 30 ml PO Q4H PRN PRN Reason: INDIGESTION Last Admin: 04/19/17 14:14 Dose: 30 ml Aripiprazole (Abilify Tab*) 5 mg PO BEDTIME [facility] Last Admin: 04/24/17 20:50 Dose: 5 mg Bacitracin (Bacitracin Ointment*) 1 applic TOPICAL BID [facility] Last Admin: 04/25/17 08:13 Dose: Not Given Clonazepam (Klonopin Tab(*)) 1 mg PO BEDTIME [facility] Last Admin: 04/24/17 20:51 Dose: 1 mg Clonazepam (Klonopin Tab(*)) 1 mg PO QAM [facility] Last Admin: 04/25/17 08:09 Dose: 1 mg Clonazepam (Klonopin Tab(*)) 0.5 mg PO 1200 PRN PRN Reason: ANXIETY Clonidine HCl (Catapres Tab*) 0.1 mg PO BID [facility] Last Admin: 04/25/17 08:09 Dose: 0.1 mg Docusate Sodium (Colace Cap*) 100 mg PO BID [facility] Last Admin: 04/25/17 08:09 Dose: 100 mg Fluoxetine HCl (Prozac Cap*) 80 mg PO DAILY [facility] Last Admin: 04/25/17 08:08 Dose: 80 mg Fluticasone Propionate (Flonase Nasal [place] 50mcg*) 2 spray BOTH NARES DAILY [facility] Last Admin: 04/25/17 08:11 Dose: 2 spray Gabapentin (Neurontin Cap(*)) 400 mg PO 0400,1200,2000 [facility] Last Admin: 04/25/17 12:24 Dose: 400 mg Gabapentin (Neurontin Cap(*)) 800 mg PO BEDTIME [facility] Last Admin: 04/24/17 22:23 Dose: 800 mg Levothyroxine Sodium (Synthroid Tab*) 200 mcg PO 0600 [facility] Last Admin: 04/25/17 08:07 Dose: 200 mcg Liraglutide (Victoza (Nf)) 1.2 mg SUBCUT DAILY [facility] Last Admin: 04/25/17 08:13 Dose: 1.2 mg Lisinopril (Prinivil Tab*) 20 mg PO DAILY [facility] Last Admin: 04/25/17 08:08 Dose: 20 mg Lovastatin (Mevacor (Nf)) 10 mg PO BEDTIME [facility] PRN Reason: Protocol Last Admin: 04/24/17 20:50 Dose: 10 mg Magnesium Hydroxide (Milk Of Magnesia Liq*) 30 ml PO Q6H PRN PRN Reason: CONSTIPATION Last Admin: 04/22/17 14:47 Dose: 30 ml Metformin HCl (Glucophage*) 500 mg PO BID [facility] Last Admin: 04/25/17 08:08 Dose: 500 mg Nystatin (Nystatin Top Powder*) 1 applic TOPICAL BID [facility] Last Admin: 04/25/17 08:12 Dose: Not Given Oxycodone/Acetaminophen (Percocet 5/325 Tab*) 1 tab PO BEDTIME [facility] Last Admin: 04/24/17 22:23 Dose: 1 tab Pantoprazole Sodium (Protonix Tab (Nf)) 20 mg PO DAILY [facility] Last Admin: 04/25/17 08:12 Dose: 20 mg Polyethylene Glycol/Electrolytes (Miralax*) 17 gm PO DAILY [facility] Last Admin: 04/25/17 08:14 Dose: Not Given Sodium Chloride (Sodium Chloride 0.65% Nasal [place]*) 1 spray BOTH NARES Q4H PRN PRN Reason: DRY SKIN Sulfasalazine (Azulfidine Tab*) 500 mg PO 0500,1100,1700,2300 [facility] Last Admin: 04/25/17 12:24 Dose: 500 mg Tramadol HCl (Ultram*) 50 mg PO QID PRN PRN Reason: PAIN Last Admin: 04/25/17 08:16 Dose: 50 mg Trazodone HCl (Desyrel Tab*) 100 mg PO BEDTIME [facility] Last Admin: 04/24/17 20:50 Dose: 100 mg - Discharge Plan Discharge Plan: Outpatient Follow Up Outpatient Program: ACT Additional Comments: Noemi will stabilize to a moderate degree. She will take new medications to help reduce her immediate distress and advise her to continue, hopefully with the ACT team, with therapy and medications.
[2017-04-25] MEDS ORDERED: Pregabalin CAP(*) 100 MG PO SCH (21:00)
[2017-04-25] MEDS: CMCS:Lovastatin (NF) 10 MG TAB PO SCH (21:54)
[2017-04-25] MEDS: ARIPiprazole TAB* 5 MG PO SCH (21:55)
[2017-04-25] MEDS: oxyCODONE/Acetamin 5/325 MG* TAB PO SCH (21:55)
[2017-04-25] MEDS: traZODone TAB* 100 MG PO SCH (21:55)
[2017-04-26] MEDS: Bacitracin OINTMENT* 0.5% 0.5 oz TUBE TOPICAL SCH ×2 (00:28→08:25)
[2017-04-26] MEDS: sulfaSALAzine TAB* 500 MG PO SCH ×4 (00:31→17:03)
[2017-04-26] MEDS: Levothyroxine TAB* 100 MCG TAB PO SCH (05:02)
[2017-04-26] MEDS: Gabapentin CAP(*) 400 MG PO SCH ×2 (05:02→12:05)
[2017-04-26] MEDS: Acetaminophen TAB* 325 MG PO PRN (05:02)
[2017-04-26] MEDS: Docusate CAP* 100 MG PO SCH (08:19)
[2017-04-26] MEDS: cloNIDine TAB* 0.1 MG PO SCH (08:19)
[2017-04-26] MEDS: Lisinopril TAB* 10 MG PO SCH (08:19)
[2017-04-26] MEDS: metFORMIN* 500 MG TAB PO SCH (08:19)
[2017-04-26] MEDS: FLUoxetine CAP* 20 MG PO SCH (08:19)
[2017-04-26] MEDS: clonazePAM TAB(*) 1 MG PO SCH (08:20)
[2017-04-26] MEDS: Fluticasone NASAL SPRAY 50MCG* 16 gm SPRAY BTL BOTH NARES SCH (08:21)
[2017-04-26] MEDS: PTO:Pantoprazole TAB (NF) 20 MG TAB PO SCH (08:22)
[2017-04-26] MEDS: Nystatin TOP POWDER* 15 GM BTL TOPICAL SCH (08:25)
[2017-04-26] MEDS: PTO:Liraglutide (NF) 18 MG/3 ML SUBCUT SCH (08:26)
[2017-04-26 09:14] VITALS: BP 159/101
[2017-04-26] MEDS: Polyethylene Glycol 3350* 17 GM PACKET PO SCH (10:21)
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
== END 2017-04-26 11:35 | disposition home or self-care (01) | DRG 751 ==
LOC: ED 16:34 → BSU 04-18 11:34
PROVIDERS: ADMIT Psychiatry & Neurology Psychiatry; ATTEND Psychiatry & Neurology Psychiatry
DX: F33.2 Major depressive disorder, recurrent severe without psychotic features (principal); K50.90 Crohn's disease, unspecified, without complications; M41.9 Scoliosis, unspecified; K51.90 Ulcerative colitis, unspecified, without complications; R45.850 Homicidal ideations; R45.851 Suicidal ideations; Z68.41 Body mass index [BMI] 40.0-44.9, adult; F41.1 Generalized anxiety disorder; F43.10 Post-traumatic stress disorder, unspecified; F60.3 Borderline personality disorder; G25.81 Restless legs syndrome; I10 Essential (primary) hypertension; E03.9 Hypothyroidism, unspecified; E11.9 Type 2 diabetes mellitus without complications; M81.0 Age-related osteoporosis without current pathological fracture; G47.33 Obstructive sleep apnea (adult) (pediatric); M19.90 Unspecified osteoarthritis, unspecified site; K21.9 Gastro-esophageal reflux disease without esophagitis; F17.210 Nicotine dependence, cigarettes, uncomplicated; K59.00 Constipation, unspecified; E66.9 Obesity, unspecified; Z93.3 Colostomy status; Z81.8 Family history of other mental and behavioral disorders; Z88.8 Allergy status to other drugs, medicaments and biological substances; Z79.899 Other long term (current) drug therapy; Z91.048 Other nonmedicinal substance allergy status
CPT/HCPCS: 36415; 74019; 80048; 80053; 80061; 80307; 80320; 80329; 81003; 81015; 83036; 84443; 85025; 85027; 87086; 90853; 93005; 99222; 99231; 99232; 99233; 99238; 99283; A9270-GY; G0480

== ENCOUNTER 2020-07-05 14:59 | Inpatient (IN) ==
[2020-07-05] MEDS ORDERED: NS 0.9% 1000 ml BAG 1,000 ML IV ONE ×2 (16:20→20:57)
[2020-07-05] MEDS ORDERED: Morphine 4 MG/ML VIAL (1 ml) IV ONE ×2 (16:20→20:17)
[2020-07-05] MEDS ORDERED: Ondansetron 4 mg VIAL 2 MG/ML 2 ml VIAL IV ONE (16:20)
[2020-07-05 17:57] LABS: ABS Basophils 0.1 10^3/ul (0-0.2); ABS Lymphocytes 1.4 10^3/ul (1.0-4.8); ABS Monocytes 0.7 10^3/ul (0-0.8); ABS Neutrophils 12.6 10^3/ul (1.5-7.7); Eosinophil % 0.1 %; Hematocrit 44 % (35-47); Hemoglobin 15.4 g/dL (12.0-16.0); Lymphocyte % 9.5 %; Mean Corpuscular HGB Conc 35 g/dL (31-36); Mean Corpuscular Hemoglobin 33 pg (27-31); Mean Corpuscular Volume 94 fL (80-97); Mean Platelet Volume 7.8 fL (7.4-10.4); Platelet Count 327 10^3/uL (150-450); Red Blood Count 4.72 10^6 /uL (3.70-4.87); Red Cell Distribution Width 13 % (10-15); White Blood Count 14.8 10^3/uL (3.5-10.8)
[2020-07-05 18:16] LABS: Albumin 4.2 g/dL (3.2-5.2); Albumin/Globulin Ratio 1.3 (1-3); C Reactive Protein 10.28 mg/L (<8.01); Calcium 9.7 mg/dL (8.6-10.3); EGFR African American 94.9 (>60); EGFR Non-African American 78.4 (>60); Globulin 3.3 g/dL (2-4); Total Bilirubin 0.6 mg/dL (0.2-1.0); Total Protein 7.5 g/dL (6.4-8.9)
[2020-07-05 18:18] LABS: Potassium 4.1 mmol/L (3.5-5.0)
[2020-07-05] MEDS ORDERED: Iodixanol (CONTRAST) 320 MG/ML 100 ML SDV IV ONE (18:33)
[2020-07-05] MEDS ORDERED: HYDROmorphone 0.5 MG/0.5 ML SYRINGE IV ONE (21:00)
[2020-07-05] MEDS ORDERED: Dextrose 50% Syringe 50 ml 25 GM/50 ML SYRINGE IV PUSH PRN (22:04)
[2020-07-06] MEDS: NS 0.9% 1000 ml BAG 1,000 ML IV SCH ×2 (00:10→15:09)
[2020-07-06] MEDS: Enoxaparin 40 MG/0.4 ML SYR SUBCUT SCH ×2 (00:33→20:50)
[2020-07-06] MEDS: Ondansetron 4 mg VIAL 2 MG/ML 2 ml VIAL IV PRN ×3 (00:33→15:15)
[2020-07-06] MEDS: Nystatin TOP POWDER 15 GM BTL TOPICAL SCH ×3 (01:42→20:50)
[2020-07-06 05:34] LABS: ABS Lymphocytes 2.1 10^3/ul (1.0-4.8); ABS Monocytes 0.8 10^3/ul (0-0.8); ABS Neutrophils 8.6 10^3/ul (1.5-7.7); Eosinophil % 0.4 %; Hematocrit 41 % (35-47); Hemoglobin 14.1 g/dL (12.0-16.0); Lymphocyte % 18.2 %; Mean Corpuscular HGB Conc 34 g/dL (31-36); Mean Corpuscular Hemoglobin 33 pg (27-31); Mean Corpuscular Volume 95 fL (80-97); Mean Platelet Volume 7.4 fL (7.4-10.4); Platelet Count 295 10^3/uL (150-450); Red Blood Count 4.32 10^6 /uL (3.70-4.87); Red Cell Distribution Width 13 % (10-15); White Blood Count 11.6 10^3/uL (3.5-10.8)
[2020-07-06 05:47] LABS: Calcium 8.6 mg/dL (8.6-10.3); EGFR African American 102.7 (>60); EGFR Non-African American 84.8 (>60); Potassium 3.8 mmol/L (3.5-5.0)
[2020-07-06 10:18] LABS: Urine Appearance Clear; Urine Bilirubin Negative (Negative); Urine Blood 1+ (Negative); Urine Color Amber; Urine Glucose Negative (Negative); Urine Ketones Trace (Negative); Urine Nitrite Negative (Negative); Urine Protein 1+(30 mg/dL) (Negative); Urine Specific Gravity 1.042 (1.002-1.030); Urine Urobilinogen Negative (Negative)
[2020-07-06 10:31] LABS: Urine Bacteria Absent (Absent); Urine Red Blood Cell 2+(6-10/hpf) (Absent); Urine Squamous Epithelial Cell Present (Absent); Urine White Blood Cell 2+(11-20/hpf) (Absent)
[2020-07-07] MEDS: NS 0.9% 1000 ml BAG 1,000 ML IV SCH (05:55)
[2020-07-07] MEDS: Nystatin TOP POWDER 15 GM BTL TOPICAL SCH ×2 (09:13→20:31)
[2020-07-07 11:49] LABS: Calcium 8.4 mg/dL (8.6-10.3); EGFR African American 122.3 (>60); EGFR Non-African American 101.1 (>60); Magnesium 1.8 mg/dL (1.9-2.7); Potassium 3.5 mmol/L (3.5-5.0)
[2020-07-07] MEDS: Enoxaparin 40 MG/0.4 ML SYR SUBCUT SCH (20:13)
[2020-07-08] MEDS ORDERED: Magnesium Sulfate 2 gm BAG 2 GM/50 ML BAG IVPB ONE (07:18)
[2020-07-08] MEDS: NS 0.9% 1000 ml BAG 1,000 ML IV SCH (09:16)
[2020-07-08 09:20] LABS: ABS Eosinophils 0.1 10^3/ul (0-0.6); ABS Lymphocytes 1.4 10^3/ul (1.0-4.8); ABS Monocytes 0.5 10^3/ul (0-0.8); ABS Neutrophils 5.8 10^3/ul (1.5-7.7); Eosinophil % 0.9 %; Hematocrit 40 % (35-47); Hemoglobin 13.7 g/dL (12.0-16.0); Lymphocyte % 18.4 %; Mean Corpuscular HGB Conc 34 g/dL (31-36); Mean Corpuscular Hemoglobin 33 pg (27-31); Mean Corpuscular Volume 95 fL (80-97); Mean Platelet Volume 7.3 fL (7.4-10.4); Nucleated Red Blood Cells % 0.1; Platelet Count 257 10^3/uL (150-450); Red Blood Count 4.19 10^6 /uL (3.70-4.87); Red Cell Distribution Width 13 % (10-15); White Blood Count 7.8 10^3/uL (3.5-10.8)
[2020-07-08] MEDS: Nystatin TOP POWDER 15 GM BTL TOPICAL SCH (09:28)
[2020-07-08 09:30] LABS: Calcium 7.8 mg/dL (8.6-10.3); EGFR African American 147.1 (>60); EGFR Non-African American 121.5 (>60); Potassium 3.2 mmol/L (3.5-5.0)
[2020-07-08] MEDS ORDERED: KCL 10 MEQ/50 ML IVPREMIX 10 MEQ/50 ML BAG IV SCH (11:00)
[2020-07-08 15:06] VITALS: BP 159/75
== END 2020-07-08 17:00 | disposition home or self-care (01) | DRG 247 ==
LOC: ED 14:59 → SSU 22:21
PROVIDERS: ADMIT Internal Medicine; ATTEND Hospitalist

== ENCOUNTER 2022-03-18 10:27 | Observation (INO) ==
[2022-03-18 13:40] LABS: Urine Appearance Clear; Urine Bilirubin Negative (Negative); Urine Blood Negative (Negative); Urine Color Yellow; Urine Glucose 3+(>=500 mg/dL) (Negative); Urine Ketones Trace (Negative); Urine Nitrite Negative (Negative); Urine Protein 3+(>=500 mg/dL) (Negative); Urine Specific Gravity 1.022 (1.002-1.030); Urine Urobilinogen Negative (Negative)
[2022-03-18 13:45] LABS: Urine Bacteria Absent (Absent); Urine Red Blood Cell 2+(6-10/hpf) (Absent); Urine Squamous Epithelial Cell Present (Absent); Urine White Blood Cell 1+(6-10/hpf) (Absent)
[2022-03-18] MEDS ORDERED: Lidocaine PATCH 5% PATCH TRANSDERM ONE (13:51)
[2022-03-18] MEDS ORDERED: Lactated Ringers 1000 ml BAG 1,000 ML IV ONE ×2 (13:51→20:48)
[2022-03-18 14:11] LABS: Hematocrit 38 % (35-47); Hemoglobin 12.6 g/dL (12.0-16.0); Mean Corpuscular HGB Conc 33 g/dL (31-36); Mean Corpuscular Hemoglobin 30 pg (27-31); Mean Corpuscular Volume 91 fL (80-97); Platelet Count 346 10^3/uL (150-450); Red Blood Count 4.21 10^6 /uL (3.70-4.87); Red Cell Distribution Width 17 % (10-15); White Blood Count 13.5 10^3/uL (3.5-10.8)
[2022-03-18] MEDS ORDERED: Piperacillin/Tazobac ADVAN 4.5 GM in NS 0.9% 100 ml BAG 100 ML IV ONE (14:55)
[2022-03-18 14:57] LABS: Blood Urea Nitrogen 26 mg/dL (6-24); CO2 Carbon Dioxide 26 mmol/L (22-32); Calcium 9.4 mg/dL (8.6-10.3); Chloride 97 mmol/L (101-111); Creatinine, Serum 0.84 mg/dL (0.51-0.95); Glucose 270 mg/dL (70-100); Sodium 133 mmol/L (135-145)
[2022-03-18] MEDS ORDERED: Iodixanol (CONTRAST) 320 MG/ML 100 ML SDV IV ONE (15:04)
[2022-03-18 15:20] LABS: Albumin 3.6 g/dL (3.2-5.2)
[2022-03-18 15:26] LABS: ALT 48 U/L (7-52); Alkaline Phosphatase 71 U/L (35-149); Globulin 3.6 g/dL (2-4); Lipase 147 U/L (11.0-82.0); Total Protein 7.2 g/dL (6.4-8.9)
[2022-03-18 15:32] LABS: Anion Gap 10 mmol/L (2-11)
[2022-03-18] MEDS ORDERED: Zosyn 3.375 GM IV - ED ONCE IV ONE (16:00)
[2022-03-18 16:32] LABS: Potassium Redraw 3.8 mmol/L (3.5-5.0)
[2022-03-18] MEDS ORDERED: Morphine 4 MG/ML VIAL (1 ml) IV ONE (18:14)
[2022-03-18] MEDS ORDERED: Vancomycin 1,500 MG in NS 0.9% 250 ml 250 ML IVPB ONE (19:33)
[2022-03-18] MEDS ORDERED: Dextrose 50% Syringe 50 ml 25 GM/50 ML SYRINGE IV PUSH PRN (19:49)
[2022-03-18] MEDS ORDERED: Cefepime 2 GM in Dextrose 2 GM/50 ML BAG IV SCH (20:00)
[2022-03-18] MEDS ORDERED: Enoxaparin 40 MG/0.4 ML SYR SUBCUT SCH (20:00)
[2022-03-18] MEDS ORDERED: Vancomycin per Pharmacy 1 EA NOTE FOLLOW UP SCH (20:00)
[2022-03-18] MEDS ORDERED: metroNIDAZOLE IV 500 MG/100ML 500 MG/100 ML BAG IVPB SCH (20:00)
[2022-03-18] MEDS ORDERED: Vancomycin 2,000 MG in NS 0.9% 500 ml BAG 500 ML IVPB ONE (21:00)
[2022-03-18 21:58] LABS: C Reactive Protein 10.74 mg/L (<8.01)
[2022-03-18] MEDS: Morphine 4 MG/ML VIAL (1 ml) IV PRN (22:15)
[2022-03-18] MEDS: CMCS: Lovastatin 10 mg TAB (NF) PO SCH ×2 (22:45→22:58)
[2022-03-19] MEDS: Morphine 4 MG/ML VIAL (1 ml) IV PRN ×2 (04:32→08:58)
[2022-03-19] MEDS ORDERED: metroNIDAZOLE IV 500 MG/100ML 500 MG/100 ML BAG IVPB SCH (06:00)
[2022-03-19 06:12] LABS: Hematocrit 35 % (35-47); Hemoglobin 12.2 g/dL (12.0-16.0); Mean Corpuscular HGB Conc 35 g/dL (31-36); Mean Corpuscular Hemoglobin 32 pg (27-31); Mean Corpuscular Volume 91 fL (80-97); Platelet Count 288 10^3/uL (150-450); Red Blood Count 3.87 10^6 /uL (3.70-4.87); Red Cell Distribution Width 17 % (10-15); White Blood Count 10.7 10^3/uL (3.5-10.8)
[2022-03-19 07:07] LABS: ABS Eosinophils 0.2 10^3/ul (0-0.6); ABS Monocytes 0.5 10^3/ul (0-0.8); ABS Neutrophils 8.1 10^3/ul (1.5-7.7); Eosinophil % 1.7 %; Lymphocyte % 18.2 %
[2022-03-19 07:08] LABS: Albumin 3.2 g/dL (3.2-5.2); Albumin/Globulin Ratio 1.1 (1-3); C Reactive Protein 13.17 mg/L (<8.01); Calcium 8.8 mg/dL (8.6-10.3); Creatinine, Serum 0.85 mg/dL (0.51-0.95); Potassium 3.9 mmol/L (3.5-5.0); Total Bilirubin 0.3 mg/dL (0.2-1.0); Total Protein 6.2 g/dL (6.4-8.9); eGFR CKD-EPI 78.9 (>60)
[2022-03-19] MEDS ORDERED: Cefepime 2 GM in Dextrose 2 GM/50 ML BAG IV SCH (09:00)
[2022-03-19] MEDS ORDERED: Lactated Ringers 1000 ml BAG 1,000 ML IV SCH (11:00)
[2022-03-19 11:46] LABS: High Sensitivity Troponin 1 Hr 9 pg/mL (<15)
[2022-03-19] MEDS ORDERED: Vancomycin 1,500 MG in NS 0.9% 250 ml 250 ML IVPB SCH (12:00)
[2022-03-19] MEDS ORDERED: hydrALAZINE 20 mg/ml 1 ML Vial IV IV SLOW PU PRN (14:30)
[2022-03-19 15:36] VITALS: BP 151/84
[2022-03-20] MEDS ORDERED: Vancomycin Trough Check NOTE FOLLOW UP ONE (11:30)
== END 2022-03-19 16:35 | disposition home or self-care (01) ==
LOC: ED 10:27 → EDHOLD 10:27 → SUATTDRO 18:42 → MED 20:32
PROVIDERS: ADMIT Internal Medicine Hematology & Oncology; ATTEND Hospitalist

== ENCOUNTER 2022-04-03 08:42 | Inpatient (IN) ==
[2022-04-03] MEDS ORDERED: Morphine 4 MG/ML VIAL (1 ml) IV ONE ×2 (09:40→12:01)
[2022-04-03] MEDS ORDERED: NS 0.9% 1000 ml BAG 1,000 ML IV ONE ×4 (09:40→14:52)
[2022-04-03] MEDS ORDERED: Vancomycin 1,500 MG in NS 0.9% 250 ml 250 ML IVPB ONE (09:41)
[2022-04-03] MEDS ORDERED: Piperacillin/Tazobac ADVAN 3.375 GM in NS 0.9% 100 ml BAG 100 ML IV ONE (09:41)
[2022-04-03 10:19] LABS: ABS Basophils 0.1 10^3/ul (0-0.2); ABS Eosinophils 0.2 10^3/ul (0-0.6); ABS Lymphocytes 1.7 10^3/ul (1.0-4.8); ABS Monocytes 0.8 10^3/ul (0-0.8); ABS Neutrophils 9.6 10^3/ul (1.5-7.7); Eosinophil % 1.5 %; Hematocrit 33 % (35-47); Hemoglobin 11.1 g/dL (12.0-16.0); Lymphocyte % 13.5 %; Mean Corpuscular HGB Conc 33 g/dL (31-36); Mean Corpuscular Hemoglobin 30 pg (27-31); Mean Corpuscular Volume 91 fL (80-97); Mean Platelet Volume 7.1 fL (7.4-10.4); Platelet Count 290 10^3/uL (150-450); Red Blood Count 3.67 10^6 /uL (3.70-4.87); Red Cell Distribution Width 16 % (10-15); White Blood Count 12.3 10^3/uL (3.5-10.8)
[2022-04-03] MEDS ORDERED: Iodixanol (CONTRAST) 320 MG/ML 100 ML SDV IV ONE (10:35)
[2022-04-03 10:52] LABS: Albumin 3.2 g/dL (3.2-5.2); Calcium 8.5 mg/dL (8.6-10.3); Creatinine, Serum 1.09 mg/dL (0.51-0.95); Globulin 3.3 g/dL (2-4); Magnesium 1.7 mg/dL (1.9-2.7); Total Bilirubin 0.4 mg/dL (0.2-1.0); Total Protein 6.5 g/dL (6.4-8.9); eGFR CKD-EPI 58.5 (>60)
[2022-04-03] MEDS ORDERED: Polyethylene Glycol 3350 17 GM PACKET PO PRN (13:32)
[2022-04-03] MEDS ORDERED: Senna TAB 8.6 mg TAB PO PRN (13:32)
[2022-04-03] MEDS ORDERED: HYDROcodone/ACETAMIN 5/325 mg TAB PO PRN (13:40)
[2022-04-03] MEDS ORDERED: Dextrose 50% Syringe 50 ml 25 GM/50 ML SYRINGE IV PUSH PRN (13:45)
[2022-04-03] MEDS ORDERED: Zosyn per Pharmacy NOTE FOLLOW UP SCH (14:00)
[2022-04-03] MEDS ORDERED: Vancomycin per Pharmacy 1 EA NOTE FOLLOW UP SCH (14:00)
[2022-04-03] MEDS ORDERED: Magnesium Sulfate IV 3 GM in NS 0.9% 100 ml BAG 100 ML IVPB ONE (14:30)
[2022-04-03 16:13] LABS: C Reactive Protein 348.36 mg/L (<8.01)
[2022-04-03] MEDS: Enoxaparin 40 MG/0.4 ML SYR SUBCUT SCH (16:21)
[2022-04-03] MEDS: Neosporin TOPICAL OINT PACKET TOPICAL SCH ×2 (16:33→22:14)
[2022-04-03] MEDS: ZOSYN 3.375 GM Q8H per EXTENDED INFUSION IV SCH (17:32)
[2022-04-03] MEDS: HYDROcodone/ACETAMIN 5/325 mg TAB PO PRN (18:57)
[2022-04-03] MEDS: LOVASTATIN 10 MG PO SCH (20:19)
[2022-04-04] MEDS: ZOSYN 3.375 GM Q8H per EXTENDED INFUSION IV SCH ×2 (00:07→07:44)
[2022-04-04] MEDS: Neosporin TOPICAL OINT PACKET TOPICAL SCH ×3 (05:35→21:48)
[2022-04-04 06:20] LABS: Hematocrit 32 % (35-47); Hemoglobin 10.6 g/dL (12.0-16.0); Mean Corpuscular HGB Conc 33 g/dL (31-36); Mean Corpuscular Hemoglobin 31 pg (27-31); Mean Corpuscular Volume 93 fL (80-97); Mean Platelet Volume 6.8 fL (7.4-10.4); Platelet Count 277 10^3/uL (150-450); Red Blood Count 3.48 10^6 /uL (3.70-4.87); Red Cell Distribution Width 15 % (10-15); White Blood Count 9.6 10^3/uL (3.5-10.8)
[2022-04-04 06:48] LABS: Calcium 7.8 mg/dL (8.6-10.3); Creatinine, Serum 0.94 mg/dL (0.51-0.95); eGFR CKD-EPI 69.9 (>60)
[2022-04-04 07:46] LABS: ABS Basophils 0.1 10^3/ul (0-0.2); ABS Eosinophils 0.2 10^3/ul (0-0.6); ABS Monocytes 0.6 10^3/ul (0-0.8); ABS Neutrophils 7.8 10^3/ul (1.5-7.7); Eosinophil % 1.9 %; Lymphocyte % 10.6 %
[2022-04-04 07:54] LABS: RBC Morphology Normal (Normal)
[2022-04-04] MEDS ORDERED: Vancomycin 2,000 MG in NS 0.9% 500 ml BAG 500 ML IVPB SCH (09:00)
[2022-04-04] MEDS: Ondansetron ODT 4 mg TAB 4 MG TAB PO PRN (09:45)
[2022-04-04] MEDS ORDERED: Calcium Carb (TUMS) 500 mg CHEW TAB PO PRN (12:23)
[2022-04-04] MEDS: Nystatin TOP POWDER 15 GM BTL TOPICAL SCH ×2 (12:23→20:43)
[2022-04-04] MEDS: Nystatin SUSPENSION 100,000 UNITS/ML UDC PO SCH ×3 (13:33→20:45)
[2022-04-04] MEDS: Enoxaparin 40 MG/0.4 ML SYR SUBCUT SCH (13:35)
[2022-04-04] MEDS: ceFAZolin VIAL 2 GM in NS 0.9% 100 ml BAG 100 ML IVPB SCH ×2 (13:39→21:55)
[2022-04-04] MEDS: LOVASTATIN 10 MG PO SCH (20:47)
[2022-04-05] MEDS: HYDROcodone/ACETAMIN 5/325 mg TAB PO PRN ×2 (04:42→14:46)
[2022-04-05 05:58] LABS: ABS Basophils 0.1 10^3/ul (0-0.2); ABS Eosinophils 0.2 10^3/ul (0-0.6); ABS Lymphocytes 1.4 10^3/ul (1.0-4.8); ABS Monocytes 0.9 10^3/ul (0-0.8); ABS Neutrophils 9.1 10^3/ul (1.5-7.7); Eosinophil % 1.8 %; Hematocrit 30 % (35-47); Hemoglobin 9.8 g/dL (12.0-16.0); Lymphocyte % 12.2 %; Mean Corpuscular HGB Conc 33 g/dL (31-36); Mean Corpuscular Hemoglobin 30 pg (27-31); Mean Corpuscular Volume 91 fL (80-97); Mean Platelet Volume 6.9 fL (7.4-10.4); Platelet Count 333 10^3/uL (150-450); Red Blood Count 3.28 10^6 /uL (3.70-4.87); Red Cell Distribution Width 15 % (10-15); White Blood Count 11.8 10^3/uL (3.5-10.8)
[2022-04-05 06:19] LABS: Creatinine, Serum 0.98 mg/dL (0.51-0.95); Magnesium 1.8 mg/dL (1.9-2.7); Potassium 3.7 mmol/L (3.5-5.0); eGFR CKD-EPI 66.5 (>60)
[2022-04-05] MEDS: ceFAZolin VIAL 2 GM in NS 0.9% 100 ml BAG 100 ML IVPB SCH ×3 (06:35→22:21)
[2022-04-05] MEDS: Neosporin TOPICAL OINT PACKET TOPICAL SCH ×3 (06:41→22:11)
[2022-04-05] MEDS ORDERED: Magnesium Sulfate IV 1GM/100ML 1 GM/100 ML BAG IV ONE (07:07)
[2022-04-05] MEDS: Nystatin SUSPENSION 100,000 UNITS/ML UDC PO SCH ×4 (09:10→22:01)
[2022-04-05] MEDS: Nystatin TOP POWDER 15 GM BTL TOPICAL SCH ×3 (09:13→22:00)
[2022-04-05] MEDS: Enoxaparin 40 MG/0.4 ML SYR SUBCUT SCH (14:46)
[2022-04-05] MEDS: LOVASTATIN 10 MG PO SCH (22:00)
[2022-04-06] MEDS: HYDROcodone/ACETAMIN 5/325 mg TAB PO PRN ×2 (00:37→06:47)
[2022-04-06 05:37] LABS: Hematocrit 30 % (35-47); Mean Corpuscular HGB Conc 33 g/dL (31-36); Mean Corpuscular Hemoglobin 30 pg (27-31); Mean Corpuscular Volume 92 fL (80-97); Mean Platelet Volume 6.7 fL (7.4-10.4); Platelet Count 350 10^3/uL (150-450); Red Cell Distribution Width 16 % (10-15); White Blood Count 12.3 10^3/uL (3.5-10.8)
[2022-04-06 06:00] LABS: ABS Basophils 0.1 10^3/ul (0-0.2); ABS Eosinophils 0.2 10^3/ul (0-0.6); ABS Lymphocytes 1.6 10^3/ul (1.0-4.8); ABS Monocytes 0.9 10^3/ul (0-0.8); ABS Neutrophils 9.5 10^3/ul (1.5-7.7); Anisocytosis 1+; Eosinophil % 1.7 %; Nucleated Red Blood Cells % 0.1; Polychromasia 1+
[2022-04-06] MEDS: Neosporin TOPICAL OINT PACKET TOPICAL SCH ×3 (06:07→20:05)
[2022-04-06] MEDS: ceFAZolin VIAL 2 GM in NS 0.9% 100 ml BAG 100 ML IVPB SCH ×3 (06:08→21:37)
[2022-04-06 06:24] LABS: Albumin 2.7 g/dL (3.2-5.2); Creatinine, Serum 0.96 mg/dL (0.51-0.95); Globulin 2.8 g/dL (2-4); Magnesium 1.7 mg/dL (1.9-2.7); Total Bilirubin 0.2 mg/dL (0.2-1.0); Total Protein 5.5 g/dL (6.4-8.9); eGFR CKD-EPI 68.2 (>60)
[2022-04-06] MEDS ORDERED: Magnesium Sulfate 2 gm BAG 2 GM/50 ML BAG IVPB ONE (07:12)
[2022-04-06] MEDS: Nystatin TOP POWDER 15 GM BTL TOPICAL SCH ×3 (08:29→20:04)
[2022-04-06] MEDS ORDERED: Vancomycin Trough Check NOTE FOLLOW UP ONE (08:30)
[2022-04-06] MEDS: Nystatin SUSPENSION 100,000 UNITS/ML UDC PO SCH ×4 (08:37→20:04)
[2022-04-06 08:58] LABS: C Reactive Protein 190.84 mg/L (<8.01)
[2022-04-06] MEDS ORDERED: HYDROcodone/ACETAMIN 5/325 mg TAB PO PRN (09:34)
[2022-04-06 12:58] LABS: Glucose Confirmatory 406 mg/dL (70-100)
[2022-04-06] MEDS ORDERED: Insulin GLARGINE 100 un/ml 10 ml VIAL SUBCUT ONE (13:19)
[2022-04-06] MEDS: Enoxaparin 40 MG/0.4 ML SYR SUBCUT SCH (13:44)
[2022-04-06] MEDS: LOVASTATIN 10 MG PO SCH (20:04)
[2022-04-07] MEDS: ceFAZolin VIAL 2 GM in NS 0.9% 100 ml BAG 100 ML IVPB SCH ×2 (05:57→13:15)
[2022-04-07 05:59] LABS: Hematocrit 31 % (35-47); Hemoglobin 10.4 g/dL (12.0-16.0); Mean Corpuscular HGB Conc 33 g/dL (31-36); Mean Corpuscular Hemoglobin 31 pg (27-31); Mean Corpuscular Volume 92 fL (80-97); Mean Platelet Volume 6.9 fL (7.4-10.4); Platelet Count 386 10^3/uL (150-450); Red Blood Count 3.38 10^6 /uL (3.70-4.87); Red Cell Distribution Width 16 % (10-15); White Blood Count 12.9 10^3/uL (3.5-10.8)
[2022-04-07 06:00] LABS: Nucleated Red Blood Cells % 0.1
[2022-04-07] MEDS: Neosporin TOPICAL OINT PACKET TOPICAL SCH ×3 (06:01→23:38)
[2022-04-07 06:15] LABS: Albumin 2.8 g/dL (3.2-5.2); Calcium 8.1 mg/dL (8.6-10.3); Creatinine, Serum 1.06 mg/dL (0.51-0.95); Globulin 2.9 g/dL (2-4); Magnesium 1.8 mg/dL (1.9-2.7); Potassium 4.1 mmol/L (3.5-5.0); Total Bilirubin 0.2 mg/dL (0.2-1.0); Total Protein 5.7 g/dL (6.4-8.9); eGFR CKD-EPI 60.5 (>60)
[2022-04-07 06:18] LABS: ABS Basophils 0.1 10^3/ul (0-0.2); ABS Eosinophils 0.2 10^3/ul (0-0.6); ABS Lymphocytes 1.7 10^3/ul (1.0-4.8); ABS Monocytes 0.8 10^3/ul (0-0.8); ABS Neutrophils 10.6 10^3/ul (1.5-7.7); Eosinophil % 1.4 %; Lymphocyte % 12.6 %
[2022-04-07] MEDS ORDERED: Magnesium Sulfate IV 1GM/100ML 1 GM/100 ML BAG IV ONE (07:26)
[2022-04-07] MEDS: Ondansetron ODT 4 mg TAB 4 MG TAB PO PRN (07:34)
[2022-04-07] MEDS: Nystatin SUSPENSION 100,000 UNITS/ML UDC PO SCH ×4 (08:49→21:33)
[2022-04-07] MEDS: Nystatin TOP POWDER 15 GM BTL TOPICAL SCH ×3 (08:50→21:34)
[2022-04-07] MEDS ORDERED: Insulin GLARGINE 100 un/ml 10 ml VIAL SUBCUT SCH (09:00)
[2022-04-07] MEDS: Enoxaparin 40 MG/0.4 ML SYR SUBCUT SCH (12:59)
[2022-04-07] MEDS: LOVASTATIN 10 MG PO SCH (21:33)
[2022-04-07] MEDS: ceFAZolin 2 GM PREMIX 2 GM/50 ML BAG IV SCH (22:58)
[2022-04-08] MEDS: ceFAZolin 2 GM PREMIX 2 GM/50 ML BAG IV SCH ×2 (05:40→13:00)
[2022-04-08] MEDS: Neosporin TOPICAL OINT PACKET TOPICAL SCH ×2 (05:48→13:55)
[2022-04-08 06:11] LABS: Hematocrit 29 % (35-47); Hemoglobin 9.6 g/dL (12.0-16.0); Mean Corpuscular HGB Conc 33 g/dL (31-36); Mean Corpuscular Hemoglobin 30 pg (27-31); Mean Corpuscular Volume 92 fL (80-97); Platelet Count 382 10^3/uL (150-450); Red Blood Count 3.18 10^6 /uL (3.70-4.87); Red Cell Distribution Width 16 % (10-15); White Blood Count 12.5 10^3/uL (3.5-10.8)
[2022-04-08 06:30] LABS: Creatinine, Serum 0.98 mg/dL (0.51-0.95); Magnesium 1.6 mg/dL (1.9-2.7); Potassium 4.4 mmol/L (3.5-5.0); eGFR CKD-EPI 66.5 (>60)
[2022-04-08] MEDS ORDERED: Magnesium Sulfate 2 gm BAG 2 GM/50 ML BAG IVPB ONE (07:04)
[2022-04-08 07:34] LABS: ABS Eosinophils 0.2 10^3/ul (0-0.6); ABS Lymphocytes 1.8 10^3/ul (1.0-4.8); ABS Monocytes 0.7 10^3/ul (0-0.8); ABS Neutrophils 9.7 10^3/ul (1.5-7.7); Eosinophil % 1.8 %; Lymphocyte % 14.6 %; Nucleated Red Blood Cells % 0.1
[2022-04-08 07:43] LABS: RBC Morphology Normal (Normal)
[2022-04-08] MEDS ORDERED: HYDROcodone/ACETAMIN 5/325 mg TAB PO PRN ×2 (08:15→09:03)
[2022-04-08] MEDS: Nystatin SUSPENSION 100,000 UNITS/ML UDC PO SCH ×2 (08:37→13:02)
[2022-04-08] MEDS ORDERED: Insulin GLARGINE 100 un/ml 10 ml VIAL SUBCUT SCH (09:00)
[2022-04-08] MEDS: HYDROcodone/ACETAMIN 5/325 mg TAB PO PRN ×2 (09:27→16:30)
[2022-04-08] MEDS: Nystatin TOP POWDER 15 GM BTL TOPICAL SCH ×2 (09:27→13:53)
[2022-04-08] MEDS: Enoxaparin 40 MG/0.4 ML SYR SUBCUT SCH (13:03)
[2022-04-08 17:02] VITALS: BP 134/85
== END 2022-04-08 17:40 | disposition home or self-care (01) | DRG 383 ==
LOC: EDHOLD 08:42 → ED 08:42 → SSU 15:03 → SUATTDRO 04-04 12:16
PROVIDERS: ADMIT Student in an Organized Health Care Education/Training Program; ATTEND Internal Medicine

== ENCOUNTER 2022-06-09 15:18 | Inpatient (IN) ==
[2022-06-09] MEDS ORDERED: Albuterol HFA INHALER 8 gm MDI INH PRN (17:40)
[2022-06-09] MEDS ORDERED: Polyethylene Glycol 3350 17 GM PACKET PO PRN (17:40)
[2022-06-09] MEDS ORDERED: Dextrose 50% Syringe 50 ml 25 GM/50 ML SYRINGE IV PUSH PRN (17:44)
[2022-06-09] MEDS: Heparin 5000 UNITS/ML 1 mL VIAL SUBCUT SCH (22:07)
[2022-06-09] MEDS: cefTRIAXone 1 gm/50 mL D5W 1 GM/50 ML BAG IV SCH (22:08)
[2022-06-09] MEDS: Bacitracin OINTMENT TUBE TOPICAL SCH (22:08)
[2022-06-09] MEDS: Insulin GLARGINE 100 un/ml 10 ml VIAL SUBCUT SCH (22:08)
[2022-06-10] MEDS: Bacitracin OINTMENT TUBE TOPICAL SCH ×3 (02:18→18:39)
[2022-06-10 04:24] LABS: ABS Basophils 0.1 10^3/uL (0.0-0.1); ABS Eosinophils 0.1 10^3/uL (0.0-0.5); ABS Lymphocytes 1.2 10^3/uL (1.0-4.8); ABS Monocytes 0.5 10^3/uL (0.0-0.9); ABS Neutrophils 5.4 10^3/uL (1.5-7.6); Hematocrit 30.3 % (35-45); Hemoglobin 10.4 g/dL (11.5-14.3); Lymphocyte % 16.6 %; Mean Corpuscular Hemoglobin 30.8 pg (27-33); Mean Corpuscular Hgb Conc 34.2 g/dL (31-36); Mean Corpuscular Volume 90.2 fL (80-97); Platelet Count 270 10^3/uL (150-450); Red Blood Count 3.36 10^6/uL (3.63-4.92); Red Cell Distribution Width 15.3 % (12-17); White Blood Count 7.3 10^3/uL (3.8-11.8)
[2022-06-10 04:35] LABS: Calcium 8.2 mg/dL (8.6-10.3); Magnesium 1.7 mg/dL (1.9-2.7); Potassium 5.1 mmol/L (3.5-5.0)
[2022-06-10 04:41] LABS: Creatinine, Serum 5.29 mg/dL (0.51-0.95); Phosphorus 5.5 mg/dL (2.5-5.0); eGFR CKD-EPI 8.8 (>60)
[2022-06-10] MEDS ORDERED: Magnesium Sulfate 2 gm BAG 2 GM/50 ML BAG IVPB ONE (05:26)
[2022-06-10] MEDS: Heparin 5000 UNITS/ML 1 mL VIAL SUBCUT SCH ×2 (10:24→21:17)
[2022-06-10] MEDS ORDERED: Dexmedetomidine HCL 120 MCG FILM SL PRN (10:42)
[2022-06-10 13:55] LABS: Calcium 8.8 mg/dL (8.6-10.3); Creatinine, Serum 3.95 mg/dL (0.51-0.95); Potassium 4.8 mmol/L (3.5-5.0); eGFR CKD-EPI 12.5 (>60)
[2022-06-10 14:24] LABS: Hepatitis B Surface Antigen Nonreactive (Nonreactive)
[2022-06-10 14:29] LABS: Hepatitis B Core IgM Nonreactive (Nonreactive)
[2022-06-10 14:41] LABS: Hepatitis B Surface Ab Not Immune (Immune)
[2022-06-10] MEDS: Ondansetron 4 mg VIAL 2 MG/ML 2 ml VIAL IV PRN (16:09)
[2022-06-10] MEDS: cefTRIAXone 1 gm/50 mL D5W 1 GM/50 ML BAG IV SCH (21:16)
[2022-06-10] MEDS ORDERED: Insulin GLARGINE 100 un/ml 10 ml VIAL SUBCUT ONE (21:37)
[2022-06-10] MEDS: Insulin GLARGINE 100 un/ml 10 ml VIAL SUBCUT SCH (22:02)
[2022-06-11] MEDS: Bacitracin OINTMENT TUBE TOPICAL SCH ×3 (02:21→17:53)
[2022-06-11 07:04] LABS: ABS Eosinophils 0.2 10^3/uL (0.0-0.5); ABS Lymphocytes 1.6 10^3/uL (1.0-4.8); ABS Monocytes 0.5 10^3/uL (0.0-0.9); ABS Neutrophils 4.2 10^3/uL (1.5-7.6); Eosinophil % 3.2 %; Hematocrit 28.1 % (35-45); Hemoglobin 9.7 g/dL (11.5-14.3); Mean Corpuscular Hemoglobin 30.8 pg (27-33); Mean Corpuscular Hgb Conc 34.4 g/dL (31-36); Mean Corpuscular Volume 89.4 fL (80-97); Mean Platelet Volume 7.2 fL (7.5-11.2); Nucleated Red Blood Cells % 0.1 /100 WBC (0.0-0.4); Platelet Count 256 10^3/uL (150-450); Red Blood Count 3.15 10^6/uL (3.63-4.92); White Blood Count 6.5 10^3/uL (3.8-11.8)
[2022-06-11 07:48] LABS: Calcium 9.2 mg/dL (8.6-10.3); Creatinine, Serum 2.31 mg/dL (0.51-0.95); Phosphorus 3.3 mg/dL (2.5-5.0); Potassium 4.6 mmol/L (3.5-5.0); eGFR CKD-EPI 23.8 (>60)
[2022-06-11] MEDS: Heparin 5000 UNITS/ML 1 mL VIAL SUBCUT SCH ×2 (08:23→22:16)
[2022-06-11] MEDS: cefTRIAXone 1 gm/50 mL D5W 1 GM/50 ML BAG IV SCH (17:52)
[2022-06-11] MEDS: Insulin GLARGINE 100 un/ml 10 ml VIAL SUBCUT SCH (21:44)
[2022-06-11] MEDS ORDERED: Insulin GLARGINE 100 un/ml 10 ml VIAL SUBCUT ONE (21:45)
[2022-06-12] MEDS: Bacitracin OINTMENT TUBE TOPICAL SCH ×3 (04:50→17:04)
[2022-06-12] MEDS: Ondansetron 4 mg VIAL 2 MG/ML 2 ml VIAL IV PRN (05:26)
[2022-06-12 07:03] LABS: Calcium 9.7 mg/dL (8.6-10.3); Creatinine, Serum 1.33 mg/dL (0.51-0.95); Magnesium 1.5 mg/dL (1.9-2.7); Phosphorus 2.6 mg/dL (2.5-5.0); Potassium 4.4 mmol/L (3.5-5.0); eGFR CKD-EPI 46.1 (>60)
[2022-06-12] MEDS ORDERED: Magnesium Sulfate 2 gm BAG 2 GM/50 ML BAG IVPB ONE (07:36)
[2022-06-12] MEDS: Heparin 5000 UNITS/ML 1 mL VIAL SUBCUT SCH ×2 (08:31→22:02)
[2022-06-12 08:38] LABS: ABS Basophils 0.1 10^3/uL (0.0-0.1); ABS Eosinophils 0.3 10^3/uL (0.0-0.5); ABS Lymphocytes 2.3 10^3/uL (1.0-4.8); ABS Monocytes 0.8 10^3/uL (0.0-0.9); ABS Neutrophils 7.1 10^3/uL (1.5-7.6); ABS Nucleated RBC 0.02 10^3/ul; Eosinophil % 2.4 %; Hematocrit 30.8 % (35-45); Hemoglobin 10.5 g/dL (11.5-14.3); Lymphocyte % 21.6 %; Mean Corpuscular Hemoglobin 30.9 pg (27-33); Mean Corpuscular Hgb Conc 34.3 g/dL (31-36); Mean Corpuscular Volume 90.2 fL (80-97); Mean Platelet Volume 7.5 fL (7.5-11.2); Nucleated Red Blood Cells % 0.1 /100 WBC (0.0-0.4); Platelet Count 260 10^3/uL (150-450); Red Blood Count 3.41 10^6/uL (3.63-4.92); Red Cell Distribution Width 14.6 % (12-17); White Blood Count 10.6 10^3/uL (3.8-11.8)
[2022-06-12] MEDS ORDERED: Prochlorperazine 5 mg/ml 2 ml VIAL (10 mg) IV ONE (08:51)
[2022-06-12] MEDS: Insulin GLARGINE 100 un/ml 10 ml VIAL SUBCUT SCH (22:02)
[2022-06-13] MEDS: Bacitracin OINTMENT TUBE TOPICAL SCH ×3 (03:58→17:08)
[2022-06-13 06:26] LABS: ABS Basophils 0.1 10^3/uL (0.0-0.1); ABS Eosinophils 0.2 10^3/uL (0.0-0.5); ABS Lymphocytes 2.2 10^3/uL (1.0-4.8); ABS Monocytes 0.8 10^3/uL (0.0-0.9); ABS Neutrophils 7.4 10^3/uL (1.5-7.6); Hematocrit 33.1 % (35-45); Hemoglobin 11.3 g/dL (11.5-14.3); Lymphocyte % 20.3 %; Mean Corpuscular Hemoglobin 30.8 pg (27-33); Mean Corpuscular Hgb Conc 34.1 g/dL (31-36); Mean Corpuscular Volume 90.1 fL (80-97); Mean Platelet Volume 6.9 fL (7.5-11.2); Platelet Count 293 10^3/uL (150-450); Red Blood Count 3.67 10^6/uL (3.63-4.92); Red Cell Distribution Width 14.9 % (12-17); White Blood Count 10.6 10^3/uL (3.8-11.8)
[2022-06-13 06:46] LABS: Albumin 3.7 g/dL (3.2-5.2); Albumin/Globulin Ratio 1.2 (1-3); Calcium 9.8 mg/dL (8.6-10.3); Creatinine, Serum 1.15 mg/dL (0.51-0.95); Globulin 3.1 g/dL (2-4); Magnesium 1.5 mg/dL (1.9-2.7); Phosphorus 3.1 mg/dL (2.5-5.0); Total Bilirubin 0.3 mg/dL (0.2-1.0); Total Protein 6.8 g/dL (6.4-8.9); eGFR CKD-EPI 54.9 (>60)
[2022-06-13] MEDS ORDERED: Magnesium Sulfate 2 gm BAG 2 GM/50 ML BAG IVPB ONE (07:21)
[2022-06-13] MEDS: Heparin 5000 UNITS/ML 1 mL VIAL SUBCUT SCH ×2 (09:52→21:07)
[2022-06-13] MEDS: Insulin GLARGINE 100 un/ml 10 ml VIAL SUBCUT SCH (21:13)
[2022-06-14] MEDS: Bacitracin OINTMENT TUBE TOPICAL SCH ×3 (02:32→17:36)
[2022-06-14 06:30] LABS: Calcium 10.1 mg/dL (8.6-10.3); Creatinine, Serum 1.13 mg/dL (0.51-0.95); Magnesium 1.7 mg/dL (1.9-2.7)
[2022-06-14] MEDS: Heparin 5000 UNITS/ML 1 mL VIAL SUBCUT SCH ×2 (08:56→20:47)
[2022-06-14] MEDS: Insulin GLARGINE 100 un/ml 10 ml VIAL SUBCUT SCH (20:47)
[2022-06-15] MEDS: Bacitracin OINTMENT TUBE TOPICAL SCH ×3 (03:14→17:06)
[2022-06-15] MEDS: Heparin 5000 UNITS/ML 1 mL VIAL SUBCUT SCH ×2 (08:57→21:20)
[2022-06-15] MEDS: Insulin GLARGINE 100 un/ml 10 ml VIAL SUBCUT SCH (21:22)
[2022-06-16] MEDS: Bacitracin OINTMENT TUBE TOPICAL SCH (02:37)
[2022-06-16] MEDS: Heparin 5000 UNITS/ML 1 mL VIAL SUBCUT SCH ×2 (09:14→21:06)
[2022-06-16] MEDS: Insulin GLARGINE 100 un/ml 10 ml VIAL SUBCUT SCH (21:07)
[2022-06-17] MEDS: Heparin 5000 UNITS/ML 1 mL VIAL SUBCUT SCH ×2 (09:30→22:03)
[2022-06-17] MEDS: Insulin GLARGINE 100 un/ml 10 ml VIAL SUBCUT SCH (22:03)
[2022-06-18] MEDS: Heparin 5000 UNITS/ML 1 mL VIAL SUBCUT SCH (10:28)
[2022-06-18 14:29] VITALS: BP 132/87
== END 2022-06-18 19:20 | disposition swing bed (61) | DRG 469 ==
LOC: ICU 17:10 → SUATTDRO 17:10 → MED 06-10 17:57
PROVIDERS: ADMIT Surgery Surgical Critical Care; ATTEND Student in an Organized Health Care Education/Training Program

== ENCOUNTER 2022-06-18 14:00 | Inpatient (IN) ==
[2022-06-18] MEDS ORDERED: Dextrose 50% Syringe 50 ml 25 GM/50 ML SYRINGE IV PUSH PRN (14:04)
[2022-06-18] MEDS ORDERED: Albuterol HFA INHALER 8 gm MDI INH PRN (14:09)
[2022-06-18] MEDS ORDERED: Polyethylene Glycol 3350 17 GM PACKET PO PRN (14:09)
[2022-06-18] MEDS ORDERED: Magnesium Hydroxide LIQ 30 ML UDC PO PRN (14:09)
[2022-06-18] MEDS: Heparin 5000 UNITS/ML 1 mL VIAL SUBCUT SCH (22:02)
[2022-06-18] MEDS: Insulin GLARGINE 100 un/ml 10 ml VIAL SUBCUT SCH (22:05)
[2022-06-19] MEDS: Heparin 5000 UNITS/ML 1 mL VIAL SUBCUT SCH ×2 (08:29→20:19)
[2022-06-19] MEDS: Insulin GLARGINE 100 un/ml 10 ml VIAL SUBCUT SCH (20:34)
[2022-06-20] MEDS: Heparin 5000 UNITS/ML 1 mL VIAL SUBCUT SCH ×2 (08:11→21:30)
[2022-06-20] MEDS ORDERED: Morphine 2 MG/ML SYRINGE IV ONE (11:56)
[2022-06-20 14:00] LABS: High Sensitivity Troponin 1 Hr 71 pg/mL (<15)
[2022-06-20] MEDS: Insulin GLARGINE 100 un/ml 10 ml VIAL SUBCUT SCH (21:26)
[2022-06-21] MEDS: Heparin 5000 UNITS/ML 1 mL VIAL SUBCUT SCH ×2 (09:39→21:55)
[2022-06-21] MEDS: Insulin GLARGINE 100 un/ml 10 ml VIAL SUBCUT SCH (22:11)
[2022-06-22] MEDS: Heparin 5000 UNITS/ML 1 mL VIAL SUBCUT SCH ×2 (08:29→20:05)
[2022-06-22] MEDS: Ondansetron ODT 4 mg TAB 4 MG TAB SL PRN (12:21)
[2022-06-22] MEDS: Insulin GLARGINE 100 un/ml 10 ml VIAL SUBCUT SCH (20:05)
[2022-06-23] MEDS: Heparin 5000 UNITS/ML 1 mL VIAL SUBCUT SCH ×2 (08:02→21:06)
[2022-06-23] MEDS: Ondansetron ODT 4 mg TAB 4 MG TAB SL PRN (21:00)
[2022-06-23] MEDS: Insulin GLARGINE 100 un/ml 10 ml VIAL SUBCUT SCH (21:20)
[2022-06-24] MEDS: Heparin 5000 UNITS/ML 1 mL VIAL SUBCUT SCH ×2 (07:48→21:18)
[2022-06-24] MEDS: Ondansetron ODT 4 mg TAB 4 MG TAB SL PRN (13:16)
[2022-06-24] MEDS: Insulin GLARGINE 100 un/ml 10 ml VIAL SUBCUT SCH (22:04)
[2022-06-25] MEDS: Heparin 5000 UNITS/ML 1 mL VIAL SUBCUT SCH ×2 (09:20→19:50)
[2022-06-25] MEDS: Insulin GLARGINE 100 un/ml 10 ml VIAL SUBCUT SCH (19:53)
[2022-06-25] MEDS: Ondansetron ODT 4 mg TAB 4 MG TAB SL PRN (21:43)
[2022-06-26] MEDS: Heparin 5000 UNITS/ML 1 mL VIAL SUBCUT SCH ×2 (08:52→20:12)
[2022-06-26] MEDS: Insulin GLARGINE 100 un/ml 10 ml VIAL SUBCUT SCH (20:09)
[2022-06-27] MEDS: Heparin 5000 UNITS/ML 1 mL VIAL SUBCUT SCH ×2 (08:33→20:39)
[2022-06-27] MEDS: Insulin GLARGINE 100 un/ml 10 ml VIAL SUBCUT SCH (20:39)
[2022-06-27] MEDS: Ondansetron ODT 4 mg TAB 4 MG TAB SL PRN (21:08)
[2022-06-28] MEDS: Heparin 5000 UNITS/ML 1 mL VIAL SUBCUT SCH ×2 (08:32→21:08)
[2022-06-28] MEDS: Insulin GLARGINE 100 un/ml 10 ml VIAL SUBCUT SCH (21:08)
[2022-06-29] MEDS: Heparin 5000 UNITS/ML 1 mL VIAL SUBCUT SCH ×2 (08:30→21:51)
[2022-06-29] MEDS: Insulin GLARGINE 100 un/ml 10 ml VIAL SUBCUT SCH (21:49)
[2022-06-30] MEDS: Heparin 5000 UNITS/ML 1 mL VIAL SUBCUT SCH ×2 (08:18→21:54)
[2022-06-30] MEDS: Insulin GLARGINE 100 un/ml 10 ml VIAL SUBCUT SCH (21:55)
[2022-07-01] MEDS: Heparin 5000 UNITS/ML 1 mL VIAL SUBCUT SCH ×2 (08:32→20:56)
[2022-07-01] MEDS: Ondansetron ODT 4 mg TAB 4 MG TAB SL PRN (12:45)
[2022-07-01] MEDS: Insulin GLARGINE 100 un/ml 10 ml VIAL SUBCUT SCH (20:56)
[2022-07-02] MEDS: Heparin 5000 UNITS/ML 1 mL VIAL SUBCUT SCH ×2 (08:10→21:48)
[2022-07-02] MEDS: Ondansetron ODT 4 mg TAB 4 MG TAB SL PRN (21:45)
[2022-07-02] MEDS: Insulin GLARGINE 100 un/ml 10 ml VIAL SUBCUT SCH (21:47)
[2022-07-03] MEDS: Heparin 5000 UNITS/ML 1 mL VIAL SUBCUT SCH ×2 (09:04→21:14)
[2022-07-03] MEDS: Insulin GLARGINE 100 un/ml 10 ml VIAL SUBCUT SCH (21:12)
[2022-07-04] MEDS: Heparin 5000 UNITS/ML 1 mL VIAL SUBCUT SCH ×2 (09:10→20:55)
[2022-07-04] MEDS: Ondansetron ODT 4 mg TAB 4 MG TAB SL PRN (12:30)
[2022-07-04] MEDS: Insulin GLARGINE 100 un/ml 10 ml VIAL SUBCUT SCH (20:53)
[2022-07-05] MEDS: Heparin 5000 UNITS/ML 1 mL VIAL SUBCUT SCH ×2 (07:45→20:59)
[2022-07-05] MEDS: Insulin GLARGINE 100 un/ml 10 ml VIAL SUBCUT SCH (21:00)
[2022-07-06 06:36] VITALS: BP 134/86
[2022-07-06] MEDS: Heparin 5000 UNITS/ML 1 mL VIAL SUBCUT SCH (07:33)
[2022-07-12] MEDS ORDERED: Venlafaxine XR 75 mg PO SCH (09:00)
== END 2022-07-06 16:00 | disposition home or self-care (01) | DRG 469 ==
LOC: MED → SUATTDRO 19:58 → OBSVTOIN 19:58
PROVIDERS: ADMIT Student in an Organized Health Care Education/Training Program; ATTEND Internal Medicine

== ENCOUNTER 2022-07-12 17:48 | Inpatient (IN) ==
[2022-07-12] MEDS ORDERED: Lactated Ringers 1000 ml BAG 1,000 ML IV ONE (18:54)
[2022-07-12] MEDS ORDERED: NS 0.9% 1000 ml BAG 1,000 ML IV ONE (19:02)
[2022-07-12] MEDS ORDERED: Sodium Bicarb 8.4% Vial 50 ML 150 MEQ in D5W 1000 ml BAG 850 ML IV ONE (19:38)
[2022-07-12 19:57] LABS: PCO2 Arterial 30 mmHg (35-45); PO2 Arterial 104 mmHg (80-100)
[2022-07-12] MEDS ORDERED: Polyethylene Glycol 3350 17 GM PACKET PO PRN (20:00)
[2022-07-12] MEDS ORDERED: Albuterol HFA INHALER 8 gm MDI INH PRN (20:00)
[2022-07-12 20:02] LABS: ABS Basophils 0.1 10^3/uL (0.0-0.1); ABS Eosinophils 0.1 10^3/uL (0.0-0.5); ABS Lymphocytes 1.3 10^3/uL (1.0-4.8); ABS Monocytes 0.8 10^3/uL (0.0-0.9); ABS Neutrophils 10.4 10^3/uL (1.5-7.6); ABS Nucleated RBC 0.01 10^3/ul; Eosinophil % 0.5 %; Hematocrit 37.3 % (35-45); Hemoglobin 12.8 g/dL (11.5-14.3); Lymphocyte % 10.1 %; Mean Corpuscular Hemoglobin 30.2 pg (27-33); Mean Corpuscular Hgb Conc 34.3 g/dL (31-36); Mean Corpuscular Volume 88.3 fL (80-97); Mean Platelet Volume 7.2 fL (7.5-11.2); Nucleated Red Blood Cells % 0.1 /100 WBC (0.0-0.4); Platelet Count 275 10^3/uL (150-450); Red Blood Count 4.23 10^6/uL (3.63-4.92); Red Cell Distribution Width 14.7 % (12-17); White Blood Count 12.6 10^3/uL (3.8-11.8)
[2022-07-12] MEDS ORDERED: Dextrose 50% Syringe 50 ml 25 GM/50 ML SYRINGE IV PUSH PRN (20:06)
[2022-07-12 20:14] LABS: INR 1.1 (0.88-1.18)
[2022-07-12 20:23] LABS: Albumin 4.3 g/dL (3.2-5.2); Albumin/Globulin Ratio 1.2 (1-3); C Reactive Protein 56.36 mg/L (<8.01); Calcium 9.5 mg/dL (8.6-10.3); Creatinine, Serum 10.3 mg/dL (0.51-0.95); Globulin 3.5 g/dL (2-4); Total Bilirubin 0.3 mg/dL (0.2-1.0); Total Protein 7.8 g/dL (6.4-8.9)
[2022-07-12 20:31] LABS: Potassium 4.4 mmol/L (3.5-5.0)
[2022-07-12] MEDS: Heparin 5000 UNITS/ML 1 mL VIAL SUBCUT SCH (22:49)
[2022-07-12 23:32] LABS: High Sensitivity Troponin 1 Hr 25 pg/mL (<15)
[2022-07-13 02:12] LABS: Albumin 3.7 g/dL (3.2-5.2); Albumin/Globulin Ratio 1.2 (1-3); Calcium 8.8 mg/dL (8.6-10.3); Creatinine, Serum 9.77 mg/dL (0.51-0.95); Potassium 3.6 mmol/L (3.5-5.0); Total Bilirubin 0.2 mg/dL (0.2-1.0); Total Protein 6.7 g/dL (6.4-8.9); eGFR CKD-EPI 4.2 (>60)
[2022-07-13 02:18] LABS: PCO2 Arterial 38 mmHg (35-45); PO2 Arterial 73 mmHg (80-100)
[2022-07-13] MEDS: Heparin 5000 UNITS/ML 1 mL VIAL SUBCUT SCH ×3 (05:38→21:00)
[2022-07-13] MEDS ORDERED: Calcium Carb (TUMS) 500 mg CHEW TAB PO PRN (05:44)
[2022-07-13] MEDS ORDERED: Calcium Carb (TUMS) 500 mg CHEW TAB PO ONE (05:46)
[2022-07-13 06:21] LABS: ABS Eosinophils 0.1 10^3/uL (0.0-0.5); ABS Lymphocytes 1.7 10^3/uL (1.0-4.8); ABS Monocytes 0.8 10^3/uL (0.0-0.9); ABS Neutrophils 5.7 10^3/uL (1.5-7.6); Eosinophil % 1.2 %; Hematocrit 33.1 % (35-45); Hemoglobin 11.6 g/dL (11.5-14.3); Lymphocyte % 20.6 %; Mean Corpuscular Hemoglobin 30.8 pg (27-33); Mean Corpuscular Volume 87.8 fL (80-97); Mean Platelet Volume 7.2 fL (7.5-11.2); Platelet Count 241 10^3/uL (150-450); Red Blood Count 3.77 10^6/uL (3.63-4.92); Red Cell Distribution Width 14.5 % (12-17); White Blood Count 8.3 10^3/uL (3.8-11.8)
[2022-07-13 06:45] LABS: Calcium 8.7 mg/dL (8.6-10.3); Creatinine, Serum 9.11 mg/dL (0.51-0.95); Magnesium 1.8 mg/dL (1.9-2.7); Potassium 3.3 mmol/L (3.5-5.0); eGFR CKD-EPI 4.6 (>60)
[2022-07-13] MEDS: Venlafaxine XR 75 mg PO SCH (09:47)
[2022-07-13] MEDS ORDERED: Albumin Human 25% 25 GM/100 ML BTL IV PRN (10:13)
[2022-07-13] MEDS ORDERED: NS 0.9% 1000 ml BAG 100 ML IV PRN (10:13)
[2022-07-13] MEDS ORDERED: NS 0.9% 1000 ml BAG 200 ML IV PRN (10:13)
[2022-07-13 10:41] LABS: Hepatitis B Surface Antigen Nonreactive (Nonreactive)
[2022-07-13 10:46] LABS: Hepatitis B Core IgM Nonreactive (Nonreactive)
[2022-07-13 10:58] LABS: Hepatitis B Surface Ab Not Immune (Immune)
[2022-07-13] MEDS: Heparin 1,000 UNIT/ML 10 ml (10,000 UNITS) CATHLAB/DIALYSIS DIALYSIS SCH ×5 (14:51→20:00)
[2022-07-13 16:56] LABS: Creatinine, Serum 7.77 mg/dL (0.51-0.95); Potassium 2.9 mmol/L (3.5-5.0); eGFR CKD-EPI 5.5 (>60)
[2022-07-13] MEDS ORDERED: Vancomycin 1,000 MG in NS 0.9% 250 ml 250 ML IVPB ONE (18:53)
[2022-07-13 22:02] LABS: Calcium 8.5 mg/dL (8.6-10.3); Creatinine, Serum 4.44 mg/dL (0.51-0.95); eGFR CKD-EPI 10.8 (>60)
[2022-07-13] MEDS: Nystatin TOP POWDER 15 GM BTL TOPICAL SCH (22:12)
[2022-07-14 04:24] LABS: Urine Appearance Cloudy; Urine Bilirubin Negative (Negative); Urine Blood 1+ (Negative); Urine Color Yellow; Urine Glucose Negative (Negative); Urine Ketones Negative (Negative); Urine Nitrite Negative (Negative); Urine Protein 1+(30 mg/dL) (Negative); Urine Specific Gravity 1.012 (1.002-1.030); Urine Urobilinogen Negative (Negative)
[2022-07-14 04:26] LABS: Urine Osmo 288 mOsm/kg (150-1150)
[2022-07-14 04:32] LABS: Urine Bacteria 1+ (Absent); Urine Red Blood Cell 1+(3-5/hpf) (Absent); Urine Squamous Epithelial Cell Present (Absent); Urine White Blood Cell 3+(>20/hpf) (Absent)
[2022-07-14 05:21] LABS: Urine Potassium Concentration 10.8 mmol/L
[2022-07-14] MEDS: Heparin 5000 UNITS/ML 1 mL VIAL SUBCUT SCH ×3 (05:40→21:35)
[2022-07-14 06:19] LABS: Calcium 8.2 mg/dL (8.6-10.3); Creatinine, Serum 3.88 mg/dL (0.51-0.95); Potassium 3.3 mmol/L (3.5-5.0); eGFR CKD-EPI 12.8 (>60)
[2022-07-14 07:59] LABS: Magnesium 1.4 mg/dL (1.9-2.7)
[2022-07-14 08:19] LABS: High Sensitivity Troponin 1 Hr 14 pg/mL (<15)
[2022-07-14] MEDS ORDERED: Magnesium Sulfate IV 3 GM in NS 0.9% 100 ml BAG 100 ML IVPB ONE (08:38)
[2022-07-14] MEDS: Nystatin TOP POWDER 15 GM BTL TOPICAL SCH ×2 (08:53→23:01)
[2022-07-14] MEDS: Venlafaxine XR 75 mg PO SCH (08:53)
[2022-07-14 10:20] LABS: High Sensitivity Troponin 3 Hr 17 pg/mL (<15)
[2022-07-14] MEDS: KCL 20 MEQ/100 ML IVPREMIX 20 MEQ/100 ML BAG IV SCH ×2 (11:05→13:21)
[2022-07-14] MEDS: Heparin 1,000 UNIT/ML 10 ml (10,000 UNITS) CATHLAB/DIALYSIS DIALYSIS SCH (12:56)
[2022-07-14 15:03] LABS: Calcium 8.6 mg/dL (8.6-10.3); Creatinine, Serum 3.28 mg/dL (0.51-0.95); Potassium 3.6 mmol/L (3.5-5.0); eGFR CKD-EPI 15.6 (>60)
[2022-07-15] MEDS: Heparin 5000 UNITS/ML 1 mL VIAL SUBCUT SCH ×2 (05:11→15:27)
[2022-07-15 06:53] LABS: Calcium 8.8 mg/dL (8.6-10.3); Magnesium 1.7 mg/dL (1.9-2.7); Potassium 3.8 mmol/L (3.5-5.0)
[2022-07-15 06:59] LABS: Creatinine, Serum 2.4 mg/dL (0.51-0.95); eGFR CKD-EPI 22.7 (>60)
[2022-07-15] MEDS: Nystatin TOP POWDER 15 GM BTL TOPICAL SCH (08:19)
[2022-07-15] MEDS: Venlafaxine XR 75 mg PO SCH (08:19)
[2022-07-15] MEDS ORDERED: Magnesium Sulfate IV 3 GM in NS 0.9% 100 ml BAG 100 ML IVPB ONE (09:00)
[2022-07-15] MEDS: Heparin 1,000 UNIT/ML 10 ml (10,000 UNITS) CATHLAB/DIALYSIS DIALYSIS SCH (09:41)
[2022-07-15 16:23] VITALS: BP 112/84
== END 2022-07-15 17:09 | disposition home or self-care (01) | DRG 469 ==
LOC: ED 17:48 → EDHOLD 20:34 → SUATTDRO 20:34 → EDHOLD 22:06 → MED 22:40
PROVIDERS: ADMIT Hospitalist; ATTEND Internal Medicine

== ENCOUNTER 2022-12-24 13:04 | Observation (INO) ==
[2022-12-24 13:58] LABS: PCO2 Arterial 44 mmHg (35-45); PO2 Arterial 75 mmHg (80-100)
[2022-12-24 14:03] LABS: ABS Basophils 0.1 10^3/uL (0.0-0.1); ABS Eosinophils 0.2 10^3/uL (0.0-0.5); ABS Lymphocytes 2.1 10^3/uL (1.0-4.8); ABS Monocytes 0.6 10^3/uL (0.0-0.9); ABS Neutrophils 6.8 10^3/uL (1.5-7.6); ABS Nucleated RBC 0.02 10^3/ul; Eosinophil % 2.1 %; Hematocrit 39.3 % (35-45); Hemoglobin 13.5 g/dL (11.5-14.3); Lymphocyte % 21.4 %; Mean Corpuscular Hemoglobin 33.3 pg (27-33); Mean Corpuscular Hgb Conc 34.4 g/dL (31-36); Mean Corpuscular Volume 96.6 fL (80-97); Mean Platelet Volume 6.7 fL (7.5-11.2); Nucleated Red Blood Cells % 0.2 %/100WBC (0.0-0.8); Platelet Count 331 10^3/uL (150-450); Red Blood Count 4.07 10^6/uL (3.63-4.92); Red Cell Distribution Width 14.4 % (12-17); White Blood Count 9.9 10^3/uL (3.8-11.8)
[2022-12-24 14:32] LABS: Activated Partial Thrombo Time 32.6 seconds (26.0-38.0); INR 1.06 (0.83-1.13)
[2022-12-24 14:34] LABS: High Sens Troponin Baseline 7 pg/mL (<15)
[2022-12-24 14:37] LABS: ALT 25 U/L (7-52); Albumin 4.4 g/dL (3.2-5.2); Albumin/Globulin Ratio 1.3 (1-3); Alkaline Phosphatase 73 U/L (35-149); Anion Gap 10 mmol/L (2-16); Blood Urea Nitrogen 26 mg/dL (6-24); CO2 Carbon Dioxide 27 mmol/L (22-32); Chloride 100 mmol/L (101-111); Creatinine, Serum 1.46 mg/dL (0.51-0.95); Globulin 3.4 g/dL (2-4); Glucose 148 mg/dL (70-100); Sodium 137 mmol/L (135-145); Total Bilirubin 0.4 mg/dL (0.2-1.0); Total Protein 7.8 g/dL (6.4-8.9)
[2022-12-24] MEDS ORDERED: Lactated Ringers 1000 ml BAG 1,000 ML IV ONE ×2 (14:44→19:25)
[2022-12-24 15:27] LABS: C Reactive Protein 18.48 mg/L (<8.01)
[2022-12-24] MEDS ORDERED: Iodixanol (CONTRAST) 320 MG/ML 100 ML SDV IV ONE (15:28)
[2022-12-24 16:10] LABS: Urine Appearance Cloudy; Urine Bilirubin Negative (Negative); Urine Blood 1+ (Negative); Urine Color Yellow; Urine Glucose Negative (Negative); Urine Ketones Negative (Negative); Urine Nitrite Negative (Negative); Urine Protein 2+(100 mg/dL) (Negative); Urine Specific Gravity 1.014 (1.002-1.030); Urine Urobilinogen Negative (Negative)
[2022-12-24 16:14] LABS: Urine Bacteria 1+ (Absent); Urine Red Blood Cell Trace(0-2/hpf) (Absent); Urine Squamous Epithelial Cell Present (Absent); Urine White Blood Cell 3+(>20/hpf) (Absent)
[2022-12-24 17:03] LABS: Potassium Redraw 3.7 mmol/L (3.5-5.0)
[2022-12-24] MEDS ORDERED: cefTRIAXone 1 gm/50 mL D5W 1 GM/50 ML BAG IV ONE (18:07)
[2022-12-24 19:06] LABS: Free T4 < 0.25 ng/dL (0.61-1.12)
[2022-12-24 19:32] LABS: TSH Ultra Thyroid Stim Horm 81.75 mcIU/mL (0.34-5.60)
[2022-12-24] MEDS ORDERED: hydrALAZINE 20 mg/ml 1 ML Vial IV IV SLOW PU ONE (23:19)
[2022-12-24] MEDS: oxyCODONE/Acetamin 5/325 mg TAB PO PRN (23:57)
[2022-12-25] MEDS ORDERED: Dextrose 50% Syringe 50 ml 25 GM/50 ML SYRINGE IV PUSH PRN (00:18)
[2022-12-25] MEDS ORDERED: Polyethylene Glycol 3350 17 GM PACKET PO PRN (00:21)
[2022-12-25] MEDS ORDERED: Senna TAB 8.6 mg TAB PO PRN (00:21)
[2022-12-25] MEDS: oxyCODONE/Acetamin 5/325 mg TAB PO PRN (05:53)
[2022-12-25 06:28] LABS: Calcium 9.6 mg/dL (8.6-10.3); Creatinine, Serum 1.34 mg/dL (0.51-0.95); Magnesium 1.5 mg/dL (1.9-2.7); Potassium 3.2 mmol/L (3.5-5.0); eGFR CKD-EPI 45.4 (>60)
[2022-12-25] MEDS ORDERED: Magnesium Sulfate 2 gm BAG 2 GM/50 ML BAG IVPB ONE (07:32)
[2022-12-25] MEDS ORDERED: Potassium Chlor 20 meq TAB.ER PO ONE (07:32)
[2022-12-25] MEDS ORDERED: Venlafaxine XR 75 mg PO SCH (09:00)
[2022-12-25] MEDS: Enoxaparin 40 MG/0.4 ML SYR SUBCUT SCH (09:09)
[2022-12-25] MEDS: DULoxetine DR 30 mg CAP PO SCH (09:17)
[2022-12-25] MEDS: Ondansetron ODT 4 mg TAB 4 MG TAB PO PRN (12:10)
[2022-12-25] MEDS ORDERED: cefTRIAXone 1 gm/50 mL D5W 1 GM/50 ML BAG IV SCH (18:00)
[2022-12-25] MEDS: Nystatin TOP POWDER 15 GM BTL TOPICAL SCH ×2 (18:05→21:13)
[2022-12-25] MEDS: Insulin GLARGINE 100 un/ml 10 ml VIAL SUBCUT SCH (21:13)
[2022-12-26] MEDS: oxyCODONE/Acetamin 5/325 mg TAB PO PRN ×3 (01:41→20:25)
[2022-12-26] MEDS: Enoxaparin 40 MG/0.4 ML SYR SUBCUT SCH (07:54)
[2022-12-26] MEDS: DULoxetine DR 30 mg CAP PO SCH (07:55)
[2022-12-26] MEDS: Nystatin TOP POWDER 15 GM BTL TOPICAL SCH ×3 (07:56→21:21)
[2022-12-26 08:48] LABS: ABS Basophils 0.1 10^3/uL (0.0-0.1); ABS Eosinophils 0.2 10^3/uL (0.0-0.5); ABS Lymphocytes 2.1 10^3/uL (1.0-4.8); ABS Monocytes 0.5 10^3/uL (0.0-0.9); ABS Neutrophils 4.9 10^3/uL (1.5-7.6); ABS Nucleated RBC 0.01 10^3/ul; Eosinophil % 2.5 %; Hematocrit 38.6 % (35-45); Hemoglobin 13.2 g/dL (11.5-14.3); Lymphocyte % 27.1 %; Mean Corpuscular Hgb Conc 34.1 g/dL (31-36); Mean Platelet Volume 6.7 fL (7.5-11.2); Nucleated Red Blood Cells % 0.1 %/100WBC (0.0-0.8); Platelet Count 286 10^3/uL (150-450); Red Blood Count 3.98 10^6/uL (3.63-4.92); Red Cell Distribution Width 14.7 % (12-17); White Blood Count 7.8 10^3/uL (3.8-11.8)
[2022-12-26 09:12] LABS: Calcium 9.3 mg/dL (8.6-10.3); Creatinine, Serum 1.3 mg/dL (0.51-0.95); Potassium 3.5 mmol/L (3.5-5.0); eGFR CKD-EPI 47.1 (>60)
[2022-12-26] MEDS: Lidocaine PATCH 5% PATCH TRANSDERM SCH (13:50)
[2022-12-26 17:52] LABS: Ferritin 128.8 ng/mL (11-307)
[2022-12-26] MEDS: Insulin GLARGINE 100 un/ml 10 ml VIAL SUBCUT SCH (21:18)
[2022-12-27] MEDS: Lidocaine PATCH 5% PATCH TRANSDERM SCH (08:51)
[2022-12-27] MEDS: DULoxetine DR 30 mg CAP PO SCH (08:52)
[2022-12-27] MEDS: Enoxaparin 40 MG/0.4 ML SYR SUBCUT SCH (08:54)
[2022-12-27] MEDS: Nystatin TOP POWDER 15 GM BTL TOPICAL SCH ×3 (08:55→23:34)
[2022-12-27] MEDS: Insulin GLARGINE 100 un/ml 10 ml VIAL SUBCUT SCH (23:13)
[2022-12-28 06:31] LABS: ABS Basophils 0.1 10^3/uL (0.0-0.1); ABS Eosinophils 0.1 10^3/uL (0.0-0.5); ABS Monocytes 0.6 10^3/uL (0.0-0.9); ABS Neutrophils 6.2 10^3/uL (1.5-7.6); ABS Nucleated RBC 0.01 10^3/ul; Eosinophil % 1.5 %; Hematocrit 35.1 % (35-45); Hemoglobin 12.3 g/dL (11.5-14.3); Lymphocyte % 22.1 %; Mean Corpuscular Hemoglobin 33.6 pg (27-33); Mean Corpuscular Hgb Conc 34.9 g/dL (31-36); Mean Corpuscular Volume 96.3 fL (80-97); Mean Platelet Volume 7.1 fL (7.5-11.2); Nucleated Red Blood Cells % 0.1 %/100WBC (0.0-0.8); Platelet Count 284 10^3/uL (150-450); Red Blood Count 3.65 10^6/uL (3.63-4.92); Red Cell Distribution Width 14.3 % (12-17)
[2022-12-28 06:41] LABS: Calcium 8.8 mg/dL (8.6-10.3); Creatinine, Serum 1.16 mg/dL (0.51-0.95); Potassium 3.7 mmol/L (3.5-5.0)
[2022-12-28] MEDS: Enoxaparin 40 MG/0.4 ML SYR SUBCUT SCH (08:22)
[2022-12-28] MEDS ORDERED: Furosemide 20 mg/2 ml IV VIAL IV ONE (10:29)
[2022-12-28] MEDS: DULoxetine DR 30 mg CAP PO SCH (10:40)
[2022-12-28] MEDS: Lidocaine PATCH 5% PATCH TRANSDERM SCH (10:42)
[2022-12-28] MEDS ORDERED: Furosemide 40 mg/4 ml IV VIAL IV SLOW PU ONE (10:55)
[2022-12-28] MEDS: Ondansetron ODT 4 mg TAB 4 MG TAB PO PRN (12:44)
[2022-12-28] MEDS: Nystatin TOP POWDER 15 GM BTL TOPICAL SCH ×2 (14:56→22:58)
[2022-12-28] MEDS: Insulin GLARGINE 100 un/ml 10 ml VIAL SUBCUT SCH (22:59)
[2022-12-28] MEDS: oxyCODONE/Acetamin 5/325 mg TAB PO PRN (22:59)
[2022-12-29] MEDS: Nystatin TOP POWDER 15 GM BTL TOPICAL SCH (03:03)
[2022-12-29] MEDS: Enoxaparin 40 MG/0.4 ML SYR SUBCUT SCH (08:13)
[2022-12-29] MEDS: DULoxetine DR 30 mg CAP PO SCH (08:16)
[2022-12-29] MEDS: Lidocaine PATCH 5% PATCH TRANSDERM SCH (08:18)
[2022-12-29 10:26] VITALS: BP 103/73
== END 2022-12-29 13:35 ==
LOC: ED 13:04 → EDHOLD 13:04 → SUATTDRO 21:15 → SSU 22:49
PROVIDERS: ADMIT Internal Medicine; ATTEND Student in an Organized Health Care Education/Training Program

== ENCOUNTER 2023-04-14 16:19 | Inpatient (IN) ==
[2023-04-14] MEDS: Albuterol HFA INHALER 8 gm MDI INH ONE (19:03)
[2023-04-14] MEDS: Acetaminophen IV 1 GM/100ML 1,000 MG/100 ML BAG IV ONE ×2 (19:03→23:28)
[2023-04-14] MEDS: methylPREDNISolone SOD SUCC 125 mg 2 ML VIAL IV ONE (19:03)
[2023-04-14 19:10] LABS: ABS Basophils 0.1 10^3/uL (0.0-0.1); ABS Eosinophils 0.1 10^3/uL (0.0-0.5); ABS Lymphocytes 1.4 10^3/uL (1.0-4.8); ABS Monocytes 0.5 10^3/uL (0.0-0.9); ABS Neutrophils 5.6 10^3/uL (1.5-7.6); Eosinophil % 1.3 %; Hematocrit 38.2 % (35-45); Lymphocyte % 18.4 %; Mean Corpuscular Hemoglobin 32.1 pg (27-33); Mean Corpuscular Volume 94.4 fL (80-97); Mean Platelet Volume 7.4 fL (7.5-11.2); Platelet Count 246 10^3/uL (150-450); Red Blood Count 4.05 10^6/uL (3.63-4.92); Red Cell Distribution Width 14.4 % (12-17); White Blood Count 7.8 10^3/uL (3.8-11.8)
[2023-04-14] MEDS: NS 0.9% 1000 ml BAG 1,000 ML IV ONE (19:15)
[2023-04-14 20:41] LABS: ALT 25 U/L (7-52); Albumin 4.1 g/dL (3.2-5.2); Albumin/Globulin Ratio 1.2 (1-3); Alkaline Phosphatase 69 U/L (35-149); Blood Urea Nitrogen 16 mg/dL (6-24); CO2 Carbon Dioxide 27 mmol/L (22-32); Calcium 9.6 mg/dL (8.6-10.3); Chloride 97 mmol/L (101-111); Creatine Kinase 118 U/L (10-223); Creatinine, Serum 1.11 mg/dL (0.51-0.95); Globulin 3.3 g/dL (2-4); Glucose 157 mg/dL (70-100); Magnesium 1.6 mg/dL (1.9-2.7); Sodium 137 mmol/L (135-145); Total Bilirubin 0.5 mg/dL (0.2-1.0); Total Protein 7.4 g/dL (6.4-8.9); eGFR CKD-EPI 56.9 (>60)
[2023-04-14 20:42] LABS: Anion Gap 13 mmol/L (2-16)
[2023-04-14] MEDS: Iodixanol (CONTRAST) 320 MG/ML 100 ML SDV IV ONE (22:27)
[2023-04-15] MEDS ORDERED: Senna TAB 8.6 mg TAB PO PRN (02:25)
[2023-04-15] MEDS ORDERED: Polyethylene Glycol 3350 17 GM PACKET PO PRN (02:25)
[2023-04-15] MEDS ORDERED: Dextrose 50% Syringe 50 ml 25 GM/50 ML SYRINGE IV PUSH PRN (02:25)
[2023-04-15] MEDS ORDERED: Albuterol/Ipratropium NEB.SOL (2.5/0.5 MG) 3 ML NEB.SOLN ONE (02:51)
[2023-04-15] MEDS: Albuterol/Ipratropium NEB.SOL (2.5/0.5 MG) 3 ML NEB.SOLN INH SCH (02:54)
[2023-04-15] MEDS: Ondansetron 4 mg VIAL 2 MG/ML 2 ml VIAL IV ONE (04:06)
[2023-04-15 04:17] LABS: Potassium Redraw 4.1 mmol/L (3.5-5.0)
[2023-04-15 06:03] LABS: ABS Lymphocytes 0.7 10^3/uL (1.0-4.8); ABS Monocytes 0.1 10^3/uL (0.0-0.9); Hematocrit 37.9 % (35-45); Hemoglobin 13.1 g/dL (11.5-14.3); Mean Corpuscular Hemoglobin 32.4 pg (27-33); Mean Corpuscular Hgb Conc 34.5 g/dL (31-36); Mean Corpuscular Volume 93.8 fL (80-97); Mean Platelet Volume 6.9 fL (7.5-11.2); Platelet Count 266 10^3/uL (150-450); Red Blood Count 4.04 10^6/uL (3.63-4.92); Red Cell Distribution Width 14.6 % (12-17); White Blood Count 7.9 10^3/uL (3.8-11.8)
[2023-04-15] MEDS: oxyCODONE/Acetamin 5/325 mg TAB PO PRN (06:24)
[2023-04-15 06:27] LABS: High Sensitivity Troponin 1 Hr 5 pg/mL (<15)
[2023-04-15 06:30] LABS: Calcium 9.2 mg/dL (8.6-10.3); Creatinine, Serum 1.1 mg/dL (0.51-0.95); Magnesium 1.6 mg/dL (1.9-2.7); eGFR CKD-EPI 57.5 (>60)
[2023-04-15] MEDS: Enoxaparin 40 MG/0.4 ML SYR SUBCUT SCH (07:57)
[2023-04-15] MEDS: DULoxetine DR 30 mg CAP PO SCH (08:00)
[2023-04-15 08:17] LABS: C Reactive Protein 12.79 mg/L (<8.01)
[2023-04-15] MEDS: Magnesium Sulf 4 GM/100 ML IV 4,000 MG/100 ML BAG IVPB ONE (08:35)
[2023-04-15] MEDS: Albuterol/Ipratropium NEB.SOL (2.5/0.5 MG) 3 ML NEB.SOLN INH PRN (12:49)
[2023-04-15] MEDS: guaiFENesin DM SUGAR FREE 100 MG/10 MG 5 ML UDC PO PRN (12:55)
[2023-04-15] MEDS: Ondansetron 4 mg VIAL 2 MG/ML 2 ml VIAL IV PRN (14:05)
[2023-04-15] MEDS: Insulin GLARGINE 100 un/ml 10 ml VIAL SUBCUT SCH (21:05)
[2023-04-15] MEDS: LOVASTATIN 10 MG PO SCH (21:06)
[2023-04-16 09:11] LABS: Potassium 4.1 mmol/L (3.5-5.0)
[2023-04-16 09:12] LABS: Creatinine, Serum 1.14 mg/dL (0.51-0.95); Magnesium 2.3 mg/dL (1.9-2.7); eGFR CKD-EPI 55.1 (>60)
[2023-04-16 12:09] LABS: ABS Lymphocytes 0.8 10^3/uL (1.0-4.8); ABS Monocytes 0.6 10^3/uL (0.0-0.9); ABS Neutrophils 8.9 10^3/uL (1.5-7.6); ABS Nucleated RBC 0.01 10^3/ul; Eosinophil % 0.3 %; Hematocrit 37.9 % (35-45); Hemoglobin 12.8 g/dL (11.5-14.3); Mean Corpuscular Hemoglobin 32.1 pg (27-33); Mean Corpuscular Hgb Conc 33.8 g/dL (31-36); Mean Platelet Volume 7.1 fL (7.5-11.2); Nucleated Red Blood Cells % 0.1 %/100WBC (0.0-0.8); Platelet Count 269 10^3/uL (150-450); Red Blood Count 3.99 10^6/uL (3.63-4.92); Red Cell Distribution Width 14.8 % (12-17); White Blood Count 10.5 10^3/uL (3.8-11.8)
[2023-04-16] MEDS ORDERED: Albuterol/Ipratropium NEB.SOL (2.5/0.5 MG) 3 ML NEB.SOLN INH SCH (19:00)
[2023-04-16] MEDS: Mometasone/Formoter 100/5 MDI INH SCH (20:03)
[2023-04-16] MEDS: Insulin GLARGINE 100 un/ml 10 ml VIAL SUBCUT SCH (20:58)
[2023-04-16] MEDS: Albuterol/Ipratropium NEB.SOL (2.5/0.5 MG) 3 ML NEB.SOLN INH PRN (23:32)
[2023-04-17] MEDS ORDERED: Dextrose 50% Syringe 50 ml 25 GM/50 ML SYRINGE IV PUSH PRN (06:57)
[2023-04-17] MEDS: Enoxaparin 40 MG/0.4 ML SYR SUBCUT SCH (11:01)
[2023-04-17] MEDS: Insulin GLARGINE 100 un/ml 10 ml VIAL SUBCUT SCH (20:26)
[2023-04-18 06:30] LABS: Hematocrit 37.4 % (35-45); Hemoglobin 12.9 g/dL (11.5-14.3); Mean Corpuscular Hemoglobin 32.3 pg (27-33); Mean Corpuscular Hgb Conc 34.5 g/dL (31-36); Mean Corpuscular Volume 93.6 fL (80-97); Mean Platelet Volume 6.7 fL (7.5-11.2); Platelet Count 275 10^3/uL (150-450); Red Cell Distribution Width 14.3 % (12-17); White Blood Count 9.1 10^3/uL (3.8-11.8)
[2023-04-18 06:47] LABS: Albumin 4.2 g/dL (3.2-5.2); Albumin/Globulin Ratio 1.4 (1-3); Calcium 8.8 mg/dL (8.6-10.3); Creatinine, Serum 1.13 mg/dL (0.51-0.95); Globulin 3.1 g/dL (2-4); Magnesium 1.8 mg/dL (1.9-2.7); Potassium 3.7 mmol/L (3.5-5.0); Total Bilirubin 0.3 mg/dL (0.2-1.0); Total Protein 7.3 g/dL (6.4-8.9); eGFR CKD-EPI 55.7 (>60)
[2023-04-18 08:12] LABS: ABS Basophils 0.1 10^3/uL (0.0-0.1); ABS Eosinophils 0.1 10^3/uL (0.0-0.5); ABS Lymphocytes 2.6 10^3/uL (1.0-4.8); ABS Monocytes 0.8 10^3/uL (0.0-0.9); ABS Neutrophils 5.6 10^3/uL (1.5-7.6); ABS Nucleated RBC 0.01 10^3/ul; Nucleated Red Blood Cells % 0.1 %/100WBC (0.0-0.8)
[2023-04-18 14:16] VITALS: BP 154/101
== END 2023-04-18 17:00 | disposition home or self-care (01) | DRG 133 ==
LOC: EDHOLD 16:19 → ED 16:19 → SUATTDRO 23:21 → MED 04-15 13:02
PROVIDERS: ADMIT Internal Medicine; ATTEND Internal Medicine

== ENCOUNTER 2023-05-26 15:26 | Inpatient (IN) ==
[2023-05-26 16:17] LABS: ABS Basophils 0.1 10^3/uL (0.0-0.1); ABS Eosinophils 0.2 10^3/uL (0.0-0.5); ABS Lymphocytes 2.3 10^3/uL (1.0-4.8); ABS Monocytes 0.7 10^3/uL (0.0-0.9); ABS Neutrophils 6.7 10^3/uL (1.5-7.6); ABS Nucleated RBC 0.01 10^3/ul; Eosinophil % 1.6 %; Hematocrit 35.4 % (35-45); Hemoglobin 12.4 g/dL (11.5-14.3); Lymphocyte % 23.2 %; Mean Corpuscular Hemoglobin 33.1 pg (27-33); Mean Corpuscular Volume 94.6 fL (80-97); Mean Platelet Volume 7.2 fL (7.5-11.2); Nucleated Red Blood Cells % 0.1 %/100WBC (0.0-0.8); Platelet Count 269 10^3/uL (150-450); Red Blood Count 3.74 10^6/uL (3.63-4.92); Red Cell Distribution Width 14.9 % (12-17); White Blood Count 9.9 10^3/uL (3.8-11.8)
[2023-05-26 16:18] LABS: INR 1.07 (0.83-1.13)
[2023-05-26 16:51] LABS: Albumin 4.1 g/dL (3.2-5.2); Albumin/Globulin Ratio 1.4 (1-3); Calcium 9.5 mg/dL (8.6-10.3); Creatinine, Serum 1.01 mg/dL (0.51-0.95); Magnesium 1.7 mg/dL (1.9-2.7); Potassium 3.9 mmol/L (3.5-5.0); Total Bilirubin 0.3 mg/dL (0.2-1.0); Total Protein 7.1 g/dL (6.4-8.9); eGFR CKD-EPI 63.7 (>60)
[2023-05-26] MEDS: NS 0.9% 1000 ml BAG 1,000 ML IV ONE (17:34)
[2023-05-26] MEDS: Morphine 4 MG/ML VIAL (1 ml) IV ONE (17:35)
[2023-05-26 18:13] LABS: High Sensitivity Troponin 1 Hr 6 pg/mL (<15)
[2023-05-26] MEDS: Iohexol 350 (CONTRAST) 500 ML MDV IV ONE (18:19)
[2023-05-26] MEDS: Albuterol 2.5mg/3 ml (0.083%) NEB.SOLN INH ONE ×2 (19:16→20:56)
[2023-05-26] MEDS: Magnesium Sulfate 2 gm BAG 2 GM/50 ML BAG IVPB ONE (20:27)
[2023-05-26] MEDS: oxyCODONE/Acetamin 5/325 mg TAB PO ONE (20:34)
[2023-05-26] MEDS ORDERED: Magnesium Hydroxide LIQ 30 ML UDC PO PRN (23:39)
[2023-05-26] MEDS ORDERED: Polyethylene Glycol 3350 17 GM PACKET PO PRN (23:39)
[2023-05-26] MEDS ORDERED: Calcium Carb (TUMS) 500 mg CHEW TAB PO PRN (23:56)
[2023-05-27] MEDS: Morphine 4 MG/ML VIAL (1 ml) IV ONE (00:06)
[2023-05-27] MEDS ORDERED: Dextrose 50% Syringe 50 ml 25 GM/50 ML SYRINGE IV PUSH PRN (04:57)
[2023-05-27] MEDS: oxyCODONE/Acetamin 5/325 mg TAB PO PRN (05:01)
[2023-05-27] MEDS: Nystatin TOP POWDER 15 GM BTL TOPICAL SCH (05:05)
[2023-05-27 05:54] LABS: Hemoglobin 12.4 g/dL (11.5-14.3); Mean Corpuscular Hemoglobin 32.5 pg (27-33); Mean Corpuscular Hgb Conc 34.5 g/dL (31-36); Mean Corpuscular Volume 94.4 fL (80-97); Platelet Count 279 10^3/uL (150-450); Red Blood Count 3.81 10^6/uL (3.63-4.92); Red Cell Distribution Width 15.3 % (12-17); White Blood Count 10.1 10^3/uL (3.8-11.8)
[2023-05-27 06:27] LABS: Albumin/Globulin Ratio 1.4 (1-3); Calcium 9.2 mg/dL (8.6-10.3); Creatinine, Serum 0.9 mg/dL (0.51-0.95); Globulin 2.8 g/dL (2-4); Potassium 3.9 mmol/L (3.5-5.0); Total Bilirubin 0.3 mg/dL (0.2-1.0); Total Protein 6.8 g/dL (6.4-8.9); eGFR CKD-EPI 73.2 (>60)
[2023-05-27] MEDS: Enoxaparin 40 MG/0.4 ML SYR SUBCUT SCH (07:25)
[2023-05-27] MEDS: Mometasone/Formoter 100/5 MDI INH SCH (07:59)
[2023-05-27] MEDS: DULoxetine DR 30 mg CAP PO SCH (08:01)
[2023-05-27] MEDS: Insulin GLARGINE 100 un/ml 10 ml VIAL SUBCUT SCH (10:52)
[2023-05-27] MEDS ORDERED: Albuterol HFA INHALER 8 gm MDI INH PRN (11:32)
[2023-05-27] MEDS ORDERED: Sulfur Hexaflouride MICROSPHR 25 MG VIAL ONE (15:11)
[2023-05-27] MEDS: Ondansetron ODT 4 mg TAB 4 MG TAB PO PRN (16:17)
[2023-05-27 17:10] LABS: TSH Ultra Thyroid Stim Horm 16.46 mcIU/mL (0.34-5.60)
[2023-05-27 17:15] LABS: Free T4 0.86 ng/dL (0.61-1.12)
[2023-05-28] MEDS: Insulin GLARGINE 100 un/ml 10 ml VIAL SUBCUT ONE (21:57)
[2023-05-29] MEDS: Morphine 4 MG/ML VIAL (1 ml) IV ONE (03:00)
[2023-05-29] MEDS: Albuterol/Ipratropium NEB.SOL (2.5/0.5 MG) 3 ML NEB.SOLN INH SCH (16:28)
[2023-05-29] MEDS: Albuterol/Ipratropium NEB.SOL (2.5/0.5 MG) 3 ML NEB.SOLN INH PRN (20:01)
[2023-05-29] MEDS: Insulin GLARGINE 100 un/ml 10 ml VIAL SUBCUT SCH (22:32)
[2023-05-30 05:28] LABS: Hematocrit 32.8 % (35-45); Hemoglobin 11.4 g/dL (11.5-14.3); Mean Corpuscular Hemoglobin 32.7 pg (27-33); Mean Corpuscular Hgb Conc 34.7 g/dL (31-36); Mean Corpuscular Volume 94.1 fL (80-97); Mean Platelet Volume 7.2 fL (7.5-11.2); Platelet Count 242 10^3/uL (150-450); Red Blood Count 3.49 10^6/uL (3.63-4.92); Red Cell Distribution Width 14.8 % (12-17); White Blood Count 8.1 10^3/uL (3.8-11.8)
[2023-05-30 06:11] LABS: Creatinine, Serum 1.04 mg/dL (0.51-0.95); Magnesium 1.8 mg/dL (1.9-2.7); Potassium 4.2 mmol/L (3.5-5.0); eGFR CKD-EPI 61.5 (>60)
[2023-05-30] MEDS: Magnesium Sulfate IV 1GM/100ML 1 GM/100 ML BAG IV ONE (08:51)
[2023-05-30] MEDS: DULoxetine DR 30 mg CAP PO ONE (13:12)
[2023-05-30 14:15] VITALS: BP 151/86
[2023-05-31] MEDS ORDERED: DULoxetine DR 60 mg CAP PO SCH (09:00)
== END 2023-05-30 17:00 | disposition home or self-care (01) | DRG 143 ==
LOC: ED 15:26 → EDHOLD 15:26 → SUATTDRO 22:46 → OBSVTOIN 22:46 → INTOOBSV 22:46 → SUATTDRO 05-27 09:28 → MEDTELE 05-27 12:48
PROVIDERS: ADMIT Internal Medicine; ATTEND Family Medicine